=== PATIENT | female | born 1940 | race Caucasian/White ===

== ENCOUNTER 2021-07-30 09:32 | Inpatient (IN) ==
[~2021-07-30 09:32] MED LIST: DEXAMETHASONE 10 MG/ML VIAL ONE; EPINEPHrine 1 MG/10 ML (1:10,000) SYRINGE IV ONE; GLYCOPYRROLATE 0.2 MG/ML VIAL IV ONE; KETAMINE 50 MG/ML Syringe (ANEST) IV ONE; LIDOCAINE HCL/PF 100 MG/5 ML SYRINGE IV ONE; ONDANSETRON 4 MG/2 ML VIAL ONE; PHENYLephrine 1 MG/10 ML SYRINGE (ANEST) ONE; PROPOFOL 200 MG/20 ML VIAL IV ONE; TRANEXAMIC ACID 1,000 MG/10 ML VIAL ONE; fentaNYL 250 MCG/5 ML VIAL IV ONE
[2021-07-30] MEDS ORDERED: morphine 4 MG/ML VIAL IV ONE ×2 (09:36→10:54)
--- NOTE | 2021-07-30 09:42 | Emergency Department Note ---
Lower Extremity Injury HPI General Chief Complaint: Extremity Injury, Lower Stated Complaint: Right Hip Pain, Deformity Time Seen by Provider: 07/30/21 09:36 Mode of arrival: ambulatory History of Present Illness HPI Narrative: Patient is an 81-year-old lady who arrives the emergency department by ambulance accompanied by her daughter complaining of a fall. History is provided by the patient and paramedics and is somewhat limited due to the patient's dementia. The patient fell at her assisted living facility earlier today. Staff found her on the ground and called 911. Paramedics arrived and found the patient have an obvious hip deformity. Patient has severe pain in her right hip whenever she moves her leg. She denies any other apparent injuries. She is uncertain if she hit her head but does not think she lost consciousness. She cannot remember why she fell. Related Data Home Medications Medication Instructions Recorded Confirmed acetaminophen 325 mg tablet 325 mg PO Q4HP PRN 11/04/15 07/30/21 (Tylenol) alendronate 70 mg tablet (Fosamax) 70 mg PO WEEKLY 11/04/15 cholecalciferol (vitamin D3) 25 1,000 unit PO DAILY 11/04/15 07/30/21 mcg (1,000 unit) capsule (Vitamin D3) diphenhydramine HCl 25 mg capsule 25 mg PO Q4HP PRN 11/04/15 07/30/21 duloxetine 30 mg capsule,delayed 30 mg PO DAILY 11/04/15 07/30/21 release (Cymbalta) hydrocodone 10 mg-acetaminophen 1 - 2 tab PO Q4H PRN 11/04/15 07/30/21 325 mg tablet insulin aspart U-100 100 unit/mL 1 unit SQ HS 11/04/15 07/30/21 (3 mL) subcutaneous pen (Novolog Flexpen U-100 Insulin aspart) insulin glargine 100 unit/mL (3 11 unit SQ BID 11/04/15 07/30/21 mL) subcutaneous pen (Lantus Solostar U-100 Insulin) magnesium oxide 400 mg (241.3 mg 400 mg PO TID 11/04/15 07/30/21 magnesium) tablet (MagOx) metformin 500 mg tablet 500 mg PO DAILY 11/04/15 07/30/21 (Glucophage) omeprazole 20 mg capsule,delayed 20 mg PO ACB 11/04/15 07/30/21 release polyethylene glycol 3350 17 gram 17 gm PO DAILY 11/04/15 07/30/21 oral powder packet (Miralax) potassium chloride 20 mEq 20 meq PO DAILY 11/04/15 07/30/21 tablet,extended release(part/cryst) (Klor-Con M) benzonatate 100 mg capsule 100 mg PO TID PRN 07/30/21 07/30/21 bisacodyl 10 mg rectal suppository 10 mg MA HS 07/30/21 07/30/21 (Dulcolax (bisacodyl)) citalopram 10 mg tablet 10 mg PO QDAY 07/30/21 07/30/21 insulin aspart U-100 100 unit/mL 2 unit SUBCUT AC 07/30/21 07/30/21 (3 mL) subcutaneous pen (Novolog Flexpen U-100 Insulin aspart) methenamine hippurate 1 gram tablet 1 g PO BID 07/30/21 07/30/21 tamsulosin 0.4 mg capsule 0.4 mg PO HS 07/30/21 07/30/21 trazodone 150 mg tablet 150 mg PO HS 07/30/21 07/30/21 Allergies Allergy/AdvReac Type Severity Reaction Status Date / Time NO KNOWN ALLERGIES Allergy Unknown NONE Uncoded 01/01/15 04:40 Review of Systems ROS ROS Narrative: Narrative: Limitations: ROS unobtainable due to patients medical condition FOR[facility]LY [facility], [facility] Narrative Patient History Narrative: Patient lives in an assisted living facility. Medical/Surgical/Family History All Active Problems (Updated 07/30/21 @ 12:35 by Rodriguez Franco DO) Closed femur fracture (Acute) Dementia (Acute) Diabetes mellitus type 1 (Acute) Medical History (Updated 07/30/21 @ 12:35 by Rodriguez Franco DO) Constipation Fecal impaction in rectum Social History Smoking Status: Never smoker Alcohol Intake Frequency: does not drink Exam Narrative Narrative: I reviewed the vital signs. Gen -patient is awake and alert and in no acute distress. The patient is well groomed. HEENT -head is atraumatic. There is no conjunctival pallor or scleral icterus. Mucous membranes are moist. There is no midline cervical spine tenderness to palpation. CV -S1-S2 regular rate and rhythm. Peripheral pulses are palpable. There is no JVD. Resp -breathing is nonlabored. Lungs are clear to auscultation bilaterally. There is no cyanosis. GI - Abdomen is soft and nontender to palpation. There is no guarding or rebound tenderness. Derm -skin is warm and dry. There is no visible rash. MSK -the right leg is shortened and externally rotated at the hip. There is exquisite tenderness to palpation of the right greater trochanter. Patient has limited range of motion of the hip. Patient's right knee and ankle are nontender to palpation. Posterior tibial pulse is palpable. Sensation and motor strength are intact in the toes of the right foot. Pelvis is stable. Psych -patient has appropriate affect. The patient does not appear internally stimulated. Neuro -patient answers questions appropriately with fluent speech. Patient moves all present extremities equally. Course Vital Signs Vital signs: Vital Signs Temperature 98.0 F 07/30/21 09:34 Pulse Rate 94 H 07/30/21 09:34 Respiratory Rate 20 07/30/21 09:34 Blood Pressure 115/93 07/30/21 09:34 Pulse Oximetry (%) 96 07/30/21 09:34 Temperature 98.0 F 07/30/21 09:34 Pulse Rate 97 H 07/30/21 11:45 Respiratory Rate 14 07/30/21 12:15 Blood Pressure 127/71 07/30/21 12:15 Pulse Oximetry (%) 93 07/30/21 11:45 [facility] MDM Narrative Medical decision making narrative: Patient presents with right hip pain following a fall. X-rays reveal a subtrochanteric hip fracture. I discussed the test results with the patient and her daughter and they are agreeable with the plan for admission and operative repair. The head and neck CTs were reported to the ED charge nurse as being negative by the radiologist. Patient is somewhat hyperglycemic but labs do not reveal any sign of diabetic ketoacidosis. We will initiate treatment with IV fluids and insulin. I discussed the patient's history examination and radiographic findings with Dr. Gusman. He will evaluate the patient's appropriateness for surgery and likely operate this afternoon or tomorrow. He requests admission to the hospitalist service. I discussed the patient's history examination and diagnostic findings with Dr. Christian, who agrees with the plan of care and accepts admission. Lab Data Lab results reviewed: Yes I reviewed the patient's lab results. Result diagrams: 07/30/21 09:55 Labs: Lab Results 07/30/21 07/30/21 07/30/21 Range/Units 09:55 09:55 11:20 WBC 7.9 (4.5-11.0) K/mcL RBC 3.97 (3.59-5.38) M/mcL Hgb 12.5 (11.2-15.7) g/dL Hct 38.7 (34.1-44.9) % POC Hct 39 (36-48) % MCV 97.5 (80.0-100.0) fL MCH 31.5 (26.0-34.0) pg MCHC 32.3 (31.0-36.0) g/dL RDW 12.4 (11.5-14.5) % Plt Count 283 (140-440) K/mcL MPV 9.7 (7.4-10.4) fL Neut % (Auto) 84.7 H (38.0-78.0) % Lymph % (Auto) 9.0 L (15.5-49.0) % [place] % (Auto) 5.8 (1.0-12.0) % Eos % (Auto) 0.1 (0.0-7.0) % Baso % (Auto) 0.4 (0.0-2.0) % Lymph # (Auto) 0.71 L (1.50-4.80) K/mcL [place] # (Auto) 0.46 (0.10-0.90) K/mcL Eos # (Auto) 0.01 (0.00-0.70) K/mcL Baso # (Auto) 0.03 (0.00-0.30) K/mcL Absolute Neutrophils 6.70 (1.80-8.00) K/mcL POC Sodium 138 (133-145) mEq/L POC Potassium 4.4 (3.3-5.1) mEql/L POC Chloride 102 (96-108) mEq/L POC Total CO2 26 (22-30) mmol/L POC BUN 36 H (6-20) mg/dL POC Creatinine 0.7 (0.6-1.2) mg/dL POC Glucose 550 H* (70-105) mg/dL POC WB Ioniz Calcium 1.20 (1.16-1.32) mmEq/L Urine Color Yellow Urine Appearance Hazy A (Clear) Urine pH 6.0 (5.0-9.0) Ur Specific [place] 1.028 (1.000-1.035) Urine Protein Negative (Negative) mg/dL Urine Glucose (UA) >=500 A (Negative) mg/dL Urine Ketones 5 A (Negative) mg/dL Urine Occult Blood Negative (Negative) mg/dL Urine Nitrate Negative (Negative) Urine Bilirubin Negative (Negative) mg/dL Urine Urobilinogen Negative mg/dL Ur Leukocyte Esterase Negative (Negative) /uL Urine RBC 0 (0-3) /hpf Urine WBC 3 (0-4) /hpf Ur Squamous Epith Cells 1 (0-4) /hpf Urine Bacteria Few A (0) /hpf Ur Culture Indicated? Yes ED POC Tests ED POC Tests: ROBERT - SARS Antigen Negative Radiology Data Radiology results narrative: I interpreted the patient's plain films prior to the availability of the formal radiology read. 3 views of the left hip and pelvis were obtained at 10:16 AM. There is a displaced slightly comminuted subtrochanteric fracture of the right hip. There are no visible pelvic fractures. Portable chest x-ray was obtained at 10:22 AM. There are no acute infiltrates. Discharge Plan Patient/Caregiver Discharge Instructions Pt seen by BODY PRESSER/PA only: No Clinical Impression: Closed femur fracture Patient Disposition: Xfer As Inpt ([facility]) Condition: Fair Follow up with: Avila Renner DO [Primary Care Provider] - Prescriptions: No Action metformin [Glucophage] 500 MG tablet 500 mg PO DAILY 0RF acetaminophen [Tylenol] 325 MG tablet 325 mg PO Q4HP PRN (Reason: Pain) 0RF polyethylene glycol 3350 [Miralax] 17 GM powder in packet 17 gm PO DAILY 0RF alendronate [Fosamax] 70 MG tablet 70 mg PO WEEKLY 0RF hydrocodone-acetaminophen 1 TAB tablet 1 - 2 tab PO Q4H PRN (Reason: Pain) 0RF potassium chloride [Klor-Con M20] 20 MEQ tablet,ER particles/crystals 20 meq PO DAILY 0RF magnesium oxide [MagOx] 400 MG tablet 400 mg PO TID 0RF diphenhydramine HCl 25 MG capsule 25 mg PO Q4HP PRN (Reason: Allergic Symptoms) 0RF omeprazole 20 MG capsule,delayed release(DR/EC) 20 mg PO ACB 0RF cholecalciferol (vitamin D3) [Vitamin D3] 1,000 UNIT capsule 1,000 unit PO DAILY 0RF insulin aspart U-100 [Novolog Flexpen U-100 Insulin] 100 UNIT/ML insulin pen 1 unit SQ HS 0RF duloxetine [Cymbalta] 30 MG capsule,delayed release(DR/EC) 30 mg PO DAILY 0RF Lantus Solostar U-100 Insulin 100 UNIT/ML insulin pen 11 unit SQ BID 0RF citalopram 10 mg Tablet 10 mg PO QDAY 0RF methenamine hippurate 1 gram tablet 1 g PO BID 0RF tamsulosin 0.4 mg capsule 0.4 mg PO HS 0RF benzonatate 100 mg Capsule 100 mg PO TID PRN (Reason: Cough) 0RF bisacodyl [Dulcolax (bisacodyl)] 10 mg suppository 10 mg MA HS 0RF Label Comments: prn trazodone 150 mg tablet 150 mg PO HS 0RF insulin aspart U-100 [Novolog Flexpen U-100 Insulin] 100 unit/mL (3 mL) insulin pen 2 unit SUBCUT AC 0RF
[2021-07-30 10:13] LABS: POC Blood Urea Nitrogen 36 mg/dL (6-20); POC CO2 26 mmol/L (22-30); POC Chloride 102 mEq/L (96-108); POC Creatinine 0.7 mg/dL (0.6-1.2); POC Glucose, Random 550 mg/dL (70-105); POC Hematocrit 39 % (36-48); POC Potassium 4.4 mEql/L (3.3-5.1); POC Sodium 138 mEq/L (133-145)
[2021-07-30 10:38] LABS: Basophils # (Auto) 0.03 K/mcL (0.00-0.30); Basophils % (Auto) 0.4 % (0.0-2.0); Eosinophils # (Auto) 0.01 K/mcL (0.00-0.70); Eosinophils % (Auto) 0.1 % (0.0-7.0); Hematocrit 38.7 % (34.1-44.9); Hemoglobin 12.5 g/dL (11.2-15.7); Lymphocytes # (Auto) 0.71 K/mcL (1.50-4.80); Mean Cell Volume 97.5 fL (80.0-100.0); Mean Corpuscular HGB Conc 32.3 g/dL (31.0-36.0); Mean Platelet Volume 9.7 fL (7.4-10.4); Monocytes # (Auto) 0.46 K/mcL (0.10-0.90); Monocytes % (Auto) 5.8 % (1.0-12.0); Neutrophils % (Auto) 84.7 % (38.0-78.0); Platelet Count 283 K/mcL (140-440); RBC 3.97 M/mcL (3.59-5.38); Red Cell Distribution Width 12.4 % (11.5-14.5); WBC 7.9 K/mcL (4.5-11.0)
[2021-07-30] MEDS ORDERED: INSULIN REGULAR, HUMAN 1 UNIT/0.01 ML UNIT IV ONE (11:04)
[2021-07-30] MEDS ORDERED: LACTATED RINGERS 1,000 ML IV ONE (11:04)
[2021-07-30 12:13] LABS: Appearance,Urine HAZY (Clear); Bacteria,Urine FEW /hpf (0); Bilirubin,Urine Negative (Negative); Color,Urine YELLOW; Culture Indicated,Urine Yes; Glucose,Urine (UA) >=500 mg/dL (Negative); Ketones,Urine 5 mg/dL (Negative); Leukocyte Esterase,Urine Negative /uL (Negative); Nitrate,Urine Negative (Negative); Protein,Urine Negative (Negative); Specific Gravity,Urine 1.028 (1.000-1.035); Urine Blood Negative (Negative); Urine RBC 0 /hpf (0-3); Urine Squamous Epithelial Cell 1 /hpf (0-4); Urine WBC 3 /hpf (0-4); Urobilinogen,Urine Negative
[2021-07-30] MEDS ORDERED: INSULIN REGULAR, HUMAN 1 UNIT/0.01 ML UNIT SQ ONE (12:22)
--- NOTE | 2021-07-30 12:37 | XRay Report ---
CLINICAL INFORMATION: Trauma COMPARISON: 12/08/2017 TECHNIQUE: Portable FINDINGS: The heart size, mediastinum and pulmonary vessels are unremarkable. The lungs are clear. There are no effusions. Malunified old fracture of the proximal left humerus is incompletely imaged. IMPRESSION: No cardiopulmonary disease or acute posttraumatic change evident Interpreted and Authenticated by: Jesus Jennings 07/30/21
--- NOTE | 2021-07-30 12:39 | Internal Med History&Physical ---
HPI History of Present Illness Patient information: Note initiated : 07/30/21 at 12:39 pm Service Date, if different from initiated Date: [] Patient: Janay Kraft a 81 y/o F admitted on for Right Hip Pain, Deformity. Chief Complaint: [] Chief complaint: Fall, right hip pain and fracture History of present illness: Ms. Kraft is a 81 year old F with a history of advanced dementia, type 2 diabetes, CKD stage III, depression who presents the ED after ground-level fall at her assisted living facility. Patient states that she tripped and fell to the ground onto her right hip. There is obvious deformity upon arrival in the emergency department. Imaging shows a subtrochanteric fracture. Patient does not recall full details of the episode, but denies any feelings of lightheadedness, striking her head, or loss of consciousness. Her daughter notes that she has been unsteady on her feet for the last few weeks, she had a fall the day previously as well as one a few weeks ago. Dr. Lind for orthopedics has been consulted by the ED, he plans operative repair in the morning. Further evaluation in the ED revealed hyperglycemia with a glucose over 500 at presentation. She received fluids and 5 units of IV insulin in the ED. Patient denies any chest pain, tightness or squeezing sensations at rest or with exertion Denies any dyspnea, cough or sputum production. Denies any dyspnea while lying flat. No lower extremity edema. Neither the patient nor her daughter know of any history of coronary disease or congestive heart failure or pulmonary disease. Her glucoses can run into the 500 range at times. A pparently she does have difficult to control diabetes. She is on glargine, mealtime aspart as well as Metformin. She denies any abdominal pain, no nausea or vomiting. She does have chronic constipation but had a bowel movement yesterday and today. No dysuria. Other than right hip pain with movement, no other joint pains or swelling. No bruising or bleeding. Review of Systems All systems: reviewed and no additional remarkable complaints except as stated PFSH PFSH All Active Problems (Updated 07/30/21 @ 16:30 by Consuelo Castaneda MD) GERD (gastroesophageal reflux disease) (Acute) Osteoporosis (Acute) Dementia (Acute) Chronic kidney disease, stage 3 (Acute) Type 2 diabetes mellitus not at goal (Acute) Closed femur fracture (Acute) Medical History (Updated 07/30/21 @ 16:30 by Consuelo Castaneda MD) Chronic kidney disease, stage 3 Constipation Dementia Diabetic neuropathy Fecal impaction in rectum GERD (gastroesophageal reflux disease) Osteoporosis Type 2 diabetes mellitus not at goal Social History alcohol intake frequency: does not drink MEDS/ALLERGIES Home Medications and Allergies Home Medications Medication Instructions Recorded Confirmed Type acetaminophen 325 mg tablet 325 mg PO Q4HP PRN 11/04/15 07/30/21 History (Tylenol) alendronate 70 mg tablet (Fosamax) 70 mg PO WEEKLY 11/04/15 History cholecalciferol (vitamin D3) 25 1,000 unit PO DAILY 11/04/15 07/30/21 History mcg (1,000 unit) capsule (Vitamin D3) diphenhydramine HCl 25 mg capsule 25 mg PO Q4HP PRN 11/04/15 07/30/21 History duloxetine 30 mg capsule,delayed 30 mg PO DAILY 11/04/15 07/30/21 History release (Cymbalta) hydrocodone 10 mg-acetaminophen 1 - 2 tab PO Q4H PRN 11/04/15 07/30/21 History 325 mg tablet insulin aspart U-100 100 unit/mL 1 unit SQ HS 11/04/15 07/30/21 History (3 mL) subcutaneous pen (Novolog Flexpen U-100 Insulin aspart) insulin glargine 100 unit/mL (3 11 unit SQ BID 11/04/15 07/30/21 History mL) subcutaneous pen (Lantus Solostar U-100 Insulin) magnesium oxide 400 mg (241.3 mg 400 mg PO TID 11/04/15 07/30/21 History magnesium) tablet (MagOx) metformin 500 mg tablet 500 mg PO DAILY 11/04/15 07/30/21 History (Glucophage) omeprazole 20 mg capsule,delayed 20 mg PO ACB 11/04/15 07/30/21 History release polyethylene glycol 3350 17 gram 17 gm PO DAILY 11/04/15 07/30/21 History oral powder packet (Miralax) potassium chloride 20 mEq 20 meq PO DAILY 11/04/15 07/30/21 History tablet,extended release(part/cryst) (Klor-Con M) benzonatate 100 mg capsule 100 mg PO TID PRN 07/30/21 07/30/21 History bisacodyl 10 mg rectal suppository 10 mg CO HS 07/30/21 07/30/21 History (Dulcolax (bisacodyl)) citalopram 10 mg tablet 10 mg PO QDAY 07/30/21 07/30/21 History insulin aspart U-100 100 unit/mL 2 unit SUBCUT AC 07/30/21 07/30/21 History (3 mL) subcutaneous pen (Novolog Flexpen U-100 Insulin aspart) methenamine hippurate 1 gram tablet 1 g PO BID 07/30/21 07/30/21 History tamsulosin 0.4 mg capsule 0.4 mg PO HS 07/30/21 07/30/21 History trazodone 150 mg tablet 150 mg PO HS 07/30/21 07/30/21 History Allergies Allergy/AdvReac Type Severity Reaction Status Date / Time NO KNOWN ALLERGIES Allergy Unknown NONE Uncoded 01/01/15 04:40 EXAM Constitutional Vitals: Temp Pulse Resp BP Pulse Ox 98.0 F 97 H 14 127/71 93 07/30/21 09:34 07/30/21 11:45 07/30/21 12:15 07/30/21 12:15 07/30/21 11:45 GENERAL: Alert, oriented, in no acute distress. Cooperative, appears stated age. HEENT: Atraumatic. PERRL at 2 mm, conjunctiva clear, no scleral icterus. Hearing grossly intact. Oropharynx with moist mucous membranes, no lip or gum lesions, no pharyngeal erythema or exudate. Tongue midline, palate rises symmetrically. NECK: Supple without meningismus, no thyromegaly RESPIRATORY: Breath sounds clear bilaterally without wheezes or rhonchi. Respiratory effort is unlabored. CARDIOVASCULAR: Regular rate and rhythm, no murmur gallop or rub. No peripheral edema. Carotid pulses 2+ without bruit. Pedal pulses 2+ at the dorsalis pedis. GI: Abdomen soft, nontender, no guarding or rebound. Bowel sounds are present. MUSCULOSKELETAL: Right lower extremity is externally rotated at the hip. There is tenderness over palpation of the hip joint. Trace edema, 2+ pulses, ankle fl exion and extension intact. SKIN: Intact, warm, dry. No lesions. Skin turgor decreased. NEUROLOGIC: Cranial nerves II through XII grossly intact. Muscle mass normal for age. Strength 5/5 in the bilateral upper and left lower extremities. Strength testing in the right lower extremity limited by hip pain. Sensation intact to light touch bilaterally. PSYCHIATRIC: Alert, oriented x3, mood and affect congruent to situation, decreased insight into current medical condition. DATA Data Completed and Pending Labs: Labs from last 24 hours 07/30/21 07/30/21 07/30/21 11:20 09:55 09:55 WBC 7.9 RBC 3.97 Hgb 12.5 Hct 38.7 POC Hct 39 MCV 97.5 MCH 31.5 MCHC 32.3 RDW 12.4 Plt Count 283 MPV 9.7 Neut % (Auto) 84.7 H Lymph % (Auto) 9.0 L [place] % (Auto) 5.8 Eos % (Auto) 0.1 Baso % (Auto) 0.4 Lymph # (Auto) 0.71 L [place] # (Auto) 0.46 Eos # (Auto) 0.01 Baso # (Auto) 0.03 Absolute Neutrophils 6.70 POC Sodium 138 POC Potassium 4.4 POC Chloride 102 POC Total CO2 26 POC BUN 36 H POC Creatinine 0.7 POC Glucose 550 H* POC WB Ioniz Calcium 1.20 Urine Color Yellow Urine Appearance Hazy A Urine pH 6.0 Ur Specific [place] 1.028 Urine Protein Negative Urine Glucose (UA) >=500 A Urine Ketones 5 A Urine Occult Blood Negative Urine Nitrate Negative Urine Bilirubin Negative Urine Urobilinogen Negative Ur Leukocyte Esterase Negative Urine RBC 0 Urine WBC 3 Ur Squamous Epith Cells 1 Urine Bacteria Few A Ur Culture Indicated? Yes Imaging and Cardiology R hip x-ray: Status: image reviewed by me Additional comments: IMPRESSION: Mildly comminuted, displaced and angulated intertrochanteric fracture-right hip CT scan - head: Status: image reviewed by me Additional comments: IMPRESSION: Moderate atrophy and chronic ischemic changes in the deep cerebral white matter-expected for age. No acute findings Moderate right TMJ degeneration CT scan - C spine: Status: image reviewed by me Additional comments: IMPRESSION: 1. No fracture or other acute posttraumatic change. 2. Multilevel degeneration-as described 3. Moderate degeneration-both TMJs Chest x-ray: Status: image reviewed by me Additional comments: IMPRESSION: No cardiopulmonary disease or acute posttraumatic change evident EKG: Status: image reviewed by me Additional comments: Sinus rhythm with PACs, no acute changes A/P Assessment and plan (1) Closed femur fracture: Status: Acute Comment: Right intertrochanteric Qualifiers: Encounter type: initial encounter Femur location: subtrochanteric Fracture alignment: displaced Laterality: right Qualified Code(s): S72.21XA - Displaced subtrochanteric fracture of right femur, initial encounter for closed fracture (2) Type 2 diabetes mellitus not at goal: Status: Acute (3) Chronic kidney disease, stage 3: Status: Acute (4) Dementia: Status: Acute (5) Osteoporosis: Status: Acute Narrative A/P Narrative: 81-year-old female who presents after ground-level fall with right intertrochanteric hip fracture. Right intertrochanteric hip fracture -Due to ground-level fall -Pathologic fracture associated with osteoporosis -Orthopedics consulted (Dr. Gusman), tentatively plans to the OR tomorrow morning Type 2 diabetes with hyperglycemia -Daughter notes has had significantly elevated glucoses intermittently -Daughter believes her hemoglobin A1c is in the 9 range at last check -On 11 units twice daily of glargine, 2 units of mealtime aspart and Metformin -Received 5 units of IV insulin in ED, subsequently 5 units of regular CKD stage III -Creatinine 0.7 Dementia -Advanced with difficulty with recall, critical thinking and daily activities -At risk for delirium -At risk for progression of symptoms given acute injury/hip fracture Osteoporosis -On alendronate at baseline CODE STATUS: DNR Prophylaxis: SCDs Plan: * Inpatient admission * N.p.o. after midnight * Pain control * Diabetic diet * Sliding scale insulin * Decrease basal glargine to 6 units twice daily, as oral intake may be decreased * Send hemoglobin A1c * Follow renal function * Delirium precautions, frequent reorientation, maintain day/night * Continue PPI
--- NOTE | 2021-07-30 12:39 | XRay Report ---
CLINICAL INFORMATION: Trauma COMPARISON: None. FINDINGS: Sacroiliac and hip joints are normal in width and alignment without arthritic change. Mildly comminuted intratrochanteric fracture of the right hip with coxa vara angulation and 2 cm medial displacement of the distal femur appreciated. Moderate local soft tissue swelling noted. IMPRESSION: Mildly comminuted, displaced and angulated intertrochanteric fracture-right hip Interpreted and Authenticated by: Jesus Jennings 07/30/21
--- NOTE | 2021-07-30 12:50 | Cat Scan Report ---
CLINICAL INFORMATION: Trauma-fall COMPARISON: 05/30/2007 TECHNIQUE: 2.5 mm helical slices were obtained in the skull base to vertex. Following reconstruction, axial reformatted images were reviewed at bone and parenchymal windows. The exam was performed using radiation dose optimization techniques including, but not limited to, automated exposure control, adjustment of the mA and/or kV according to patient size and use of iterative reconstruction technique. FINDINGS: The ventricles, sulci, fissures, and cisterns are symmetrically enlarged compatible with moderate age-related atrophy. This has progressed considerably since remote CT 15 years ago. No extra-axial fluid collections are identified. Mild patchy chronic ischemic changes, in the deep cerebral white matter, are expected for age. There is no hemorrhage, mass effect, or edema. Bone windows show no fracture. Moderate degenerative change of the right TMJ IMPRESSION: Moderate atrophy and chronic ischemic changes in the deep cerebral white matter-expected for age. No acute findings Moderate right TMJ degeneration Interpreted and Authenticated by: Jesus Jennings 07/30/21
--- NOTE | 2021-07-30 12:55 | Cat Scan Report ---
CLINICAL INFORMATION: Trauma COMPARISON: None. TECHNIQUE: 0.625 mm helical slices were obtained from the skull base through the superior T2 end plate. Following reconstruction, 2.5 mm sagittal, coronal and axial reformations , with and without disc space angling, were processed. The exam was reviewed at bone and soft tissue windows. The exam was performed using radiation dose optimization techniques including, but not limited to, automated exposure control, adjustment of the mA and/or kV according to patient size and use of iterative reconstruction technique. FINDINGS: Sagittal reformatted images show 2 mm of C3 and 2 mm C4 anterior subluxation due to degenerative facet disease. The remaining cervical spine is anatomically aligned. 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 No fracture identified. Moderate peridens fibrosis with associated calcification mildly impinges the anterior C1 thecal sac. The cervical cord is normal in contour and caliber without hemorrhage or other abnormality. Moderate degenerate change seen in both TMJs. No soft tissue abnormality. At C2-3, mild broad disc protrusion mildly impinges on the thecal sac At C3-4, mild broad disc protrusion and spondylolisthesis results in minimal central canal, moderate right and mild left IV foraminal narrowing. There may be impingement of the exiting C4 nerve roots At C4-5, moderate broad disc protrusion with left-sided asymmetry and grade 1 posterolisthesis results in mild central canal and moderate left IV foraminal narrowing. There is impingement of the exiting left C5 nerve root At C5-6, moderate broad disc complex results in mild central canal and right IV foraminal narrowing At C6-7, the disc level is normal At C7-T1 mild broad disc protrusion results in mild central canal and mild bilateral IV foraminal narrowing. IMPRESSION: 1. No fracture or other acute posttraumatic change. 2. Multilevel degeneration-as described 3. Moderate degeneration-both TMJs Interpreted and Authenticated by: Jesus Jennings 07/30/21
[2021-07-30] MEDS ORDERED: DEXTROSE 50% 50 ML VIAL IV PRN (14:07)
[2021-07-30] MEDS ORDERED: ONDANSETRON 4 MG/2 ML VIAL IV PRN (14:07)
[2021-07-30] MEDS ORDERED: DEXTROSE 31 GM ORAL.SUSP PO PRN (14:07)
[2021-07-30] MEDS ORDERED: ACETAMINOPHEN 325 MG TABLET PO PRN (14:07)
[2021-07-30] MEDS: HYDROmorphone 0.5 MG/0.5 ML SYRINGE IV PRN (14:44)
[2021-07-30] MEDS: 0.9 % SODIUM CHLORIDE 1,000 ML IV SCH (14:49)
[2021-07-30] MEDS: 0.9 % SODIUM CHLORIDE 10 ML SYRINGE IV SCH ×2 (16:24→20:15)
[2021-07-30] MEDS: MAGNESIUM OXIDE 400 MG TABLET PO SCH ×2 (16:36→20:47)
[2021-07-30] MEDS: INSULIN LISPRO 1 UNIT/0.01 ML UNIT SQ SCH ×2 (16:36→20:14)
[2021-07-30] MEDS: HYDROcodone/APAP 5/325MG TABLET PO PRN ×2 (16:36→20:47)
[2021-07-30] MEDS: BISACODYL 10 MG SUPP.RECT PR SCH (20:14)
[2021-07-30] MEDS: SENNOSIDES 1 TABLET PO SCH (20:15)
[2021-07-30] MEDS: DOCUSATE SODIUM 100 MG CAPSULE PO SCH (20:16)
[2021-07-30] MEDS: INSULIN GLARGINE, HUMAN 1 UNIT/0.01 ML SQ SCH (20:27)
[2021-07-30] MEDS: traZODone HCL 150 MG TABLET PO SCH (20:47)
[2021-07-30] MEDS: TAMSULOSIN 0.4 MG CAPSULE PO SCH (20:47)
[2021-07-31] MEDS: 0.9 % SODIUM CHLORIDE 1,000 ML IV SCH (03:45)
[2021-07-31] MEDS: HYDROmorphone 0.5 MG/0.5 ML SYRINGE IV PRN (03:46)
[2021-07-31] MEDS: 0.9 % SODIUM CHLORIDE 10 ML SYRINGE IV SCH ×3 (04:00→20:27)
[2021-07-31 06:43] LABS: Basophils # (Auto) 0.04 K/mcL (0.00-0.30); Basophils % (Auto) 0.7 % (0.0-2.0); Eosinophils # (Auto) 0.02 K/mcL (0.00-0.70); Eosinophils % (Auto) 0.3 % (0.0-7.0); Hematocrit 32.7 % (34.1-44.9); Hemoglobin 10.2 g/dL (11.2-15.7); Lymphocytes # (Auto) 1.08 K/mcL (1.50-4.80); Lymphocytes % (Auto) 17.9 % (15.5-49.0); Mean Cell Volume 100.3 fL (80.0-100.0); Mean Corpuscular HGB Conc 31.2 g/dL (31.0-36.0); Monocytes # (Auto) 0.44 K/mcL (0.10-0.90); Monocytes % (Auto) 7.3 % (1.0-12.0); Neutrophils % (Auto) 73.8 % (38.0-78.0); Platelet Count 216 K/mcL (140-440); RBC 3.26 M/mcL (3.59-5.38); Red Cell Distribution Width 12.6 % (11.5-14.5)
[2021-07-31 07:04] LABS: Blood Urea Nitrogen 21 mg/dL (8-23); Calcium 7.7 mg/dL (8.6-10.4); Carbon Dioxide 24 mmol/L (22-30); Chloride 104 mmol/L (96-108); Glomerular Filtration Rate 84; Glucose 370 mg/dL (70-105)
[2021-07-31] MEDS ORDERED: ceFAZolin 1 GM in DEXTROSE 5% IN WATER 50 ML IV SCH (08:45)
[2021-07-31] MEDS ORDERED: BENZOCAINE/MENTHOL 1 LOZENGE PO PRN ×2 (08:50→09:29)
[2021-07-31] MEDS ORDERED: ONDANSETRON 4 MG/2 ML VIAL IV PRN (08:56)
[2021-07-31] MEDS ORDERED: NALOXONE HCL 0.4 MG/ML VIAL IV PRN ×2 (08:56→09:29)
[2021-07-31] MEDS ORDERED: ceFAZolin 1 GM VIAL IV SCH (09:00)
--- NOTE | 2021-07-31 09:02 | Discharge Plan ---
Discharge Plan Patient/Caregiver Discharge Instructions Activity: ambulate only with your walker Diet: Regular Diet Activity Restrictions/Additional Instructions: 50% weight bearing Prescriptions: New hydrocodone-acetaminophen 5-325 mg tablet 1 tab PO Q4H PRN (Reason: pain) Qty: 60 0RF aspirin [Enteric Coated Aspirin] 81 mg tablet,delayed release (DR/EC) 81 mg PO BID Qty: 60 0RF No Action metformin [Glucophage] 500 MG tablet 500 mg PO DAILY 0RF acetaminophen [Tylenol] 325 MG tablet 325 mg PO Q4HP PRN (Reason: Pain) 0RF polyethylene glycol 3350 [Miralax] 17 GM powder in packet 17 gm PO DAILY 0RF alendronate [Fosamax] 70 MG tablet 70 mg PO WEEKLY 0RF Rx Instructions: Takes on Sun hydrocodone-acetaminophen 1 TAB tablet 1 - 2 tab PO Q4H PRN (Reason: Pain) 0RF potassium chloride [Klor-Con M20] 20 MEQ tablet,ER particles/crystals 20 meq PO DAILY 0RF magnesium oxide [MagOx] 400 MG tablet 400 mg PO TID 0RF diphenhydramine HCl 25 MG capsule 25 mg PO Q4HP PRN (Reason: Allergic Symptoms) 0RF omeprazole 20 MG capsule,delayed release(DR/EC) 20 mg PO ACB 0RF cholecalciferol (vitamin D3) [Vitamin D3] 1,000 UNIT capsule 1,000 unit PO DAILY 0RF insulin aspart U-100 [Novolog Flexpen U-100 Insulin] 100 UNIT/ML insulin pen 1 unit SQ HS 0RF duloxetine [Cymbalta] 30 MG capsule,delayed release(DR/EC) 30 mg PO DAILY 0RF Lantus Solostar U-100 Insulin 100 UNIT/ML insulin pen 11 unit SQ BID 0RF citalopram 10 mg Tablet 10 mg PO QDAY 0RF methenamine hippurate 1 gram tablet 1 g PO BID 0RF tamsulosin 0.4 mg capsule 0.4 mg PO HS 0RF benzonatate 100 mg Capsule 100 mg PO TID PRN (Reason: Cough) 0RF bisacodyl [Dulcolax (bisacodyl)] 10 mg suppository 10 mg LA HS 0RF Label Comments: prn trazodone 150 mg tablet 150 mg PO HS 0RF insulin aspart U-100 [Novolog Flexpen U-100 Insulin] 100 unit/mL (3 mL) insulin pen 2 unit SUBCUT AC 0RF Follow Up Plan Follow up with: Vasu Gusman MD [Physician] - Avila Renner DO [Primary Care Provider] - Patient Disposition: Home, Self-Care Prognosis: Fair Discharge Orders: Discharge Order (Routine); Ordered 08/03/21 Ordered By: Vasu Gusman
--- NOTE | 2021-07-31 09:06 | Internal Med Progress Note ---
SUBJECTIVE Subjective Patient information: Note initiated : 07/31/21 at 9:06 am Service Date, if different from initiated Date: [] Patient: Janay Kraft a 81 y/o F admitted on 07/30/21 for Right Hip Pain, Deformity. Chief Complaint: f/u hip fracture Interval history: Ms. Kraft is a 81 year old F with a history of advanced dementia, type 2 diabete s, CKD stage III, depression who presents the ED after ground-level fall at her assisted living facility. Patient states that she tripped and fell to the ground onto her right hip. There is obvious deformity upon arrival in the emergency department. Imaging shows a subtrochanteric fracture. Patient does not recall full details of the episode, but denies any feelings of lightheadedness, striking her head, or loss of consciousness. Her daughter notes that she has been unsteady on her feet for the last few weeks, she had a fall the day previously as well as one a few weeks ago. Dr. Lind for orthopedics has been consulted by the ED, he plans operative repair in the morning. Further evaluation in the ED revealed hyperglycemia with a glucose over 500 at presentation. She received fluids and 5 units of IV insulin in the ED. 1/: Glucose down to 89 last night, 6 units of glargine held at bedtime, in the 300s this morning. Seen with daughter at bedside, discussed with orthopedics. Plan for ORIF today. Constitutional Vitals: Vital Signs Temp Pulse Resp BP Pulse Ox 98.5 F 100 H 20 117/70 92 07/31/21 07:01 07/31/21 04:00 07/31/21 07:01 07/31/21 07:01 07/31/21 07:01 Period Temp Pulse Resp BP Sys/Mckenna Pulse Ox Last 24 Hr 98.0 F-99.0 F 89-101 13-20 114-162/59-93 90-98 Intake and Output 07/30/21 07/31/21 07/31/21 21:59 05:59 13:59 Intake Total 1270 Output Total 525 950 Balance -525 320 Weight 91 lb 5 oz Intake & Output: Intake & Output 07/30/21 07/31/21 07/31/21 21:59 05:59 13:59 Intake Total 1270 Output Total 525 950 Balance -525 320 Weight 91 lb 5 oz Intake: IV 970 Sodium Chloride 0.9% 1,000 ml @ 970 75 mls/hr IV .[id number] [facility] Rx#: [id number] Oral 300 Output: Urine Catheter Amount 525 950 Other: Meal Lunch Dinner Percent of Meal Consumed 50% 100% Feeding Ability Assist with Tray Set Up Urine Appearance Clear Clear Uretheral (Mays) Clear Urine Color Bright Yellow Pale Uretheral (Mays) Straw Urine Odor Normal GENERAL: Laying in bed no acute distress RESPIRATORY: Clear bilaterally CARDIOVASCULAR: Regular ABDOMEN: Soft, nontender EXTREMITIES: Right lower extremity externally rotated, 2+ pulses NEURO: Alert, oriented to self OBJ DATA Labs CBC & Chem 7: 07/31/21 05:13 07/31/21 05:13 Labs: Abnormal Lab Results 07/31/21 07/31/21 07/30/21 05:13 05:13 11:20 RBC 3.26 L Hgb 10.2 L Hct 32.7 L MCV 100.3 H Neut % (Auto) Lymph % (Auto) Lymph # (Auto) 1.08 L POC BUN Glucose 370 H POC Glucose Calcium 7.7 L Urine Appearance Hazy A Urine Glucose (UA) >=500 A Urine Ketones 5 A Urine Bacteria Few A 07/30/21 07/30/21 09:55 09:55 RBC Hgb Hct MCV Neut % (Auto) 84.7 H Lymph % (Auto) 9.0 L Lymph # (Auto) 0.71 L POC BUN 36 H Glucose POC Glucose 550 H* Calcium Urine Appearance Urine Glucose (UA) Urine Ketones Urine Bacteria Meds: Medications Acetaminophen (Acetaminophen 325 Mg Tablet) 650 mg PO Q6HP PRN; Protocol PRN Reason: Per Pain Protocol/Fever > 101 Hydrocodone Bitart/Acetaminophen (Hydrocodone/Apap 5/325mg Tablet) 1 tab PO Q4HP PRN; Protocol PRN Reason: Per Pain Protocol Last Admin: 07/30/21 20:47 Dose: 1 tab Documented by: Bisacodyl (Bisacodyl 10 Mg Supp.Rect) [address] [facility] Last Admin: 07/30/21 20:14 Dose: Not Given Documented by: Cefazolin Sodium (Cefazolin 1 Gm Vial) 1 gm IV PREOP VASQUEZ Stop: 07/31/21 15:00 Dextrose (Dextrose 50% 50 Ml Vial) 0 ml IV UD PRN PRN Reason: Hypoglycemia Diagnostic Test (Pha) (Accu-Chek 1 Each Strip) 1 each FS [facility] Last Admin: 07/30/21 20:49 Dose: 1 each Documented by: Docusate Sodium (Docusate Sodium 100 Mg Capsule) [address] [facility] Last Admin: 07/30/21 20:16 Dose: Not Given Documented by: Duloxetine HCl (Duloxetine 30 Mg Capsule) [address] [facility] Enoxaparin Sodium (Enoxaparin 30 Mg/0.3 Ml Syringe) [address] [facility] Glucose (Dextrose 31 Gm Oral.Susp) 15 gm PO PRN PRN PRN Reason: Hypoglycemia Hydromorphone HCl (Hydromorphone 0.5 Mg/0.5 Ml Syringe) 0.5 mg IV Q2HP PRN; Protocol PRN Reason: Per Pain Protocol Last Admin: 07/31/21 03:46 Dose: 0.5 mg Documented by: Sodium Chloride (Sodium Chloride 0.9%) 1,000 mls @ 75 mls/hr IV .[id number] [facility] Last Admin: 07/31/21 03:45 Dose: 75 mls/hr Documented by: Lactated Ringer's (Lactated Ringers) 1,000 mls @ 75 mls/hr IV .[id number] [facility] Insulin Glargine (Insulin Glargine, Human 1 Unit/0.01 Ml) [address] [facility] Last Admin: 07/30/21 20:27 Dose: Not Given Documented by: Insulin Human Lispro (Insulin Lispro 1 Unit/0.01 Ml Unit) 0 unit SQ [facility]; Protocol Last Admin: 07/30/21 20:14 Dose: Not Given Documented by: Magnesium Oxide (Magnesium Oxide 400 Mg Tablet) [address] [facility] Last Admin: 07/30/21 20:47 Dose: 400 mg Documented by: Naloxone HCl (Naloxone Hcl 0.4 Mg/Ml Vial) 0.1 mg IV Q2MIN PRN PRN Reason: Opiate Reversal Omeprazole (Omeprazole 20 Mg Capsule) [address] [facility] Ondansetron HCl (Ondansetron 4 Mg/2 Ml Vial) 4 mg IV Q6HP PRN PRN Reason: Nausea And Vomiting Ondansetron HCl (Ondansetron 4 Mg/2 Ml Vial) 4 mg IV Q4HP PRN; Protocol PRN Reason: Nausea And Vomiting Polyethylene Glycol (Polyethylene Glycol 3350 17 Gm Packet) [address] [facility] Potassium Chloride (Potassium Chloride 20 Meq Tablet) [address] [facility] Senna (Sennosides 1 Tablet) 2 tab PO [facility] Last Admin: 07/30/21 20:15 Dose: Not Given Documented by: Sodium Chloride (0.9 % Sodium Chloride 10 Ml Syringe) [address] [facility] Last Admin: 07/31/21 04:00 Dose: Not Given Documented by: Tamsulosin HCl (Tamsulosin 0.4 Mg Capsule) 0.4 mg PO [facility] Last Admin: 07/30/21 20:47 Dose: 0.4 mg Documented by: Throat Lozenges (Benzocaine/Menthol 1 Lozenge) 1 lozenge PO PRN PRN PRN Reason: Sore Throat Trazodone HCl (Trazodone Hcl 150 Mg Tablet) 150 mg PO [facility] Last Admin: 07/30/21 20:47 Dose: 150 mg Documented by: A/P Assessment and plan (1) Closed femur fracture: Status: Acute Comment: Right intertrochanteric Qualifiers: Encounter type: initial encounter Femur location: subtrochanteric Fracture alignment: displaced Laterality: right Qualified Code(s): S72.21XA - Displaced subtrochanteric fracture of right femur, initial encounter for closed fracture (2) Type 2 diabetes mellitus not at goal: Status: Acute (3) Chronic kidney disease, stage 3: Status: Acute (4) Dementia: Status: Acute (5) Osteoporosis: Status: Acute Narrative A/P Narrative: 81-year-old female who presents after ground-level fall with right inter trochanteric hip fracture. Right intertrochanteric hip fracture -Due to ground-level fall -Pathologic fracture associated with osteoporosis -Orthopedics consulted (Dr. Gusman), to OR for ORIF 1/2 Type 2 diabetes with hyperglycemia -Daughter notes has had significantly elevated glucoses intermittently -Daughter believes her hemoglobin A1c is in the 9 range at last check -On 11 units twice daily of glargine, 2 units of mealtime aspart and Metformin -Received 5 units of IV insulin in ED, subsequently 5 units of regular -Labile glucoses in the hospital -Hemoglobin A1c pending a.m. 1/2 CKD stage III -Creatinine 0.7 Dementia -Advanced with difficulty with recall, critical thinking and daily activities -At risk for delirium -At risk for progression of symptoms given acute injury/hip fracture Osteoporosis -On alendronate at baseline Plan: * ORIF as per orthopedics * Pain control * Diabetic diet * Sliding scale insulin * Continue basal glargine at reduced dose of 6 units twice daily, adjust as needed as diet increases * Follow-up hemoglobin A1c * Follow renal function * Delirium precautions, frequent reorientation, maintain day/night cycle * Continue PPI * Discharge planning CODE STATUS: DNR Prophylaxis: SCDs Time Spent With Patient Time: Total time spent is greater than 50% in coordination of care (as documented) at patient's floor/unit and/or counseling patient: Total time spent with greater than 50% in coordination of care (as documented) at patient's floor/unit and/or counseling patient:: 25 - 35 minutes QUALITY VTE Deep Vein Thrombosis/Pulmonary Embolism Present on Admission: No
[2021-07-31] MEDS ORDERED: IPRATROPIUM/ALBUTEROL 3 ML AMPUL.NEB NEB PRN (09:29)
[2021-07-31] MEDS ORDERED: fentaNYL 100 MCG/2 ML VIAL IV PRN (09:29)
[2021-07-31] MEDS ORDERED: LACTATED RINGERS 250 ML IV PRN (09:29)
[2021-07-31] MEDS ORDERED: LACTATED RINGERS 1,000 ML IV SCH (09:30)
[2021-07-31] MEDS: INSULIN LISPRO 1 UNIT/0.01 ML UNIT SQ SCH ×4 (10:05→20:27)
[2021-07-31] MEDS: DOCUSATE SODIUM 100 MG CAPSULE PO SCH ×2 (10:06→20:25)
[2021-07-31] MEDS: POTASSIUM CHLORIDE 20 MEQ TABLET PO SCH (10:06)
[2021-07-31] MEDS: DULoxetine 30 MG CAPSULE PO SCH (10:06)
[2021-07-31] MEDS: LACTATED RINGERS 1,000 ML IV SCH ×3 (10:06→23:13)
[2021-07-31] MEDS: OMEPRAZOLE 20 MG CAPSULE PO SCH (10:06)
[2021-07-31] MEDS: ENOXAPARIN 30 MG/0.3 ML SYRINGE SQ SCH ×2 (10:07→20:26)
[2021-07-31] MEDS: MAGNESIUM OXIDE 400 MG TABLET PO SCH ×3 (10:07→20:25)
[2021-07-31] MEDS: INSULIN GLARGINE, HUMAN 1 UNIT/0.01 ML SQ SCH ×2 (10:07→20:26)
[2021-07-31] MEDS: POLYETHYLENE GLYCOL 3350 17 GM PACKET PO SCH (10:07)
[2021-07-31] MEDS: ACETAMINOPHEN 1,000 MG/100 ML BAG IV ONE ×2 (10:09→10:45)
[2021-07-31 10:13] LABS: Estimated Average Glucose(eAG) 235 mg/dL; Hemoglobin A1C 9.8 % Hgb (4.0-6.0)
[2021-07-31] MEDS ORDERED: LIDOCAINE 1% 20 ML VIAL SQ ONE (10:24)
[2021-07-31] MEDS ORDERED: BUPIVACAINE 0.5% 50 ML VIAL IJ ONE (10:24)
--- NOTE | 2021-07-31 10:24 | Consultation ---
DATE OF CONSULTATION: 07/31/2021 CHIEF COMPLAINT: Right hip pain. HISTORY OF PRESENT ILLNESS: This is an 81-year-old female who presents to the emergency department complaining of right hip pain. We were consulted by the emergency department to evaluate a right hip fracture. The patient reports she tripped and fell directly onto her right hip. The patient could not recall full details of the event due to underlying dementia but denies any loss of consciousness, lightheadedness, or any other associated symptoms with fall. REVIEW OF SYSTEMS: Reviewed and otherwise unremarkable except as noted in the HPI. PAST MEDICAL HISTORY: Significant for dementia, constipation, chronic kidney disease stage III, diabetic neuropathy secondary to diabetes type 2, GERD, osteoporosis. SOCIAL HISTORY: She denies any alcohol, tobacco or recreational drug use. MEDICATIONS: Include, 1. Acetaminophen 325 p.o. q. 4 hours p.r.n. 2. Alendronate 70 mg p.o. weekly. 3. Vitamin D3 1000 units p.o. daily. 4. Diphenhydramine 25 mg p.o. q. 4 hours p.r.n. 5. Duloxetine 30 mg capsule 30 mg p.o. daily. 6. Hydrocodone 10/325, she takes 1-2 tabs p.o. q. 4 hours p.r.n. pain. 7. Insulin aspart 100 units/mL, she takes 1 unit subcu at bedtime. 8. Insulin glargine, she takes 11 units subcu b.i.d. 9. Magnesium oxide 400 mg p.o. t.i.d. 10. Metformin 500 mg p.o. daily. 11. Omeprazole 20 mg p.o. daily. 12. MiraLax 17 g p.o. daily. 13. Potassium chloride 20 mEq p.o. daily. 14. Benzonatate 100 mg p.o. t.i.d. p.r.n. 15. Dulcolax 10 mg p.o. at bedtime. 16. Citalopram 10 mg p.o. daily. 17. NovoLog 2 units subcu after breakfast. 18. Methenamine 1 g p.o. b.i.d. 19. Tamsulosin 0.4 mg p.o. at bedtime. 20. Trazodone 150 mg p.o. at bedtime. ALLERGIES: NO KNOWN DRUG ALLERGIES. PHYSICAL EXAMINATION: VITAL SIGNS: Blood pressure is 127/71, pulse 97, respirations 14, pulse ox 93% on room air and temperature 98 degrees Fahrenheit. GENERAL: The patient is alert and oriented in no apparent distress, she is cooperative. Does have some confusion due to underlying dementia. HEENT: Head is atraumatic, normocephalic. ENT is otherwise unremarkable. RESPIRATORY: Lungs are clear to auscultation bilaterally without any wheezes, rhonchi, or rales. CARDIOVASCULAR: Heart is regular rate and rhythm without murmur. ABDOMEN: Soft, nondistended, nontender. Bowel sounds present in all 4 quadrants. MUSCULOSKELETAL: Right lower extremity inspection reveals an externally rotated right lower extremity. There is mild ecchymosis and swelling present over the right hip. Passive and active range of motion of the right hip is significantly limited due to tenderness. There is tenderness to palpation throughout the groin and anterolateral hip. Right lower extremity is neurovascularly intact otherwise. IMAGING: Right hip reveals a mildly comminuted displaced and angulated intertrochanteric proximal femur fracture. ASSESSMENT: Displaced and angulated intertrochanteric/subtrochanteric right hip fracture. PLAN: After consulting with the patient and family, we will plan to proceed with a open reduction and internal fixation of the right proximal femur fracture using intramedullary rodding. Risks, complications, and possible limitations were discussed with the patient and her family and they are like to agree with this plan. Dr. Gusman and Dr. Castaneda were consulted and agree with this plan. The patient's questions were addressed and she agrees with this plan. KENIA:gabriella Job ID: [id number] Doc ID: [id number] Tonny Hendricks PA-C
--- NOTE | 2021-07-31 10:33 | Operative Note ---
Operative Note Operative Note: Pre-operative diagnosis: Right peritrochanteric hip fracture Postoperative diagnosis: Same Procedure: Right hip IM nail medium length Implants: [employer]ynthe[employer] TFN to 35 x 11 mm 130 degree cephalad angle Findings: As above diagnosis, fracture line in the neck just above LT with displaced greater tuberosity fragment, reverse obliquity pattern. Complications: None Estimated Blood loss: 250 cc Assist: Tonny Hendricks whose assistance was critical to safety and efficacy of the procedure DOS: July 31, 2021 Clinical note: The patient continues to suffer from the above mentioned diagnosis. The patient had a fall and then was unable to ambulate. They are brought to [facility] and diagnosed with the above fracture. Orthopedics was consulted. Surgical fixation was advised to decrease the time before returning to ambulation and reduce the risk of prolonged bedrest. Patient understood this and consented the procedure. H&P: The patient was met outside the operating room and symptoms were reviewed and a physical exam performed. The patient demonstrated ongoing symptoms and signs as previously discussed. Risk versus benefits of the procedure were again discussed. Patient wished to proceed with the surgery aware and understanding of these risks. The operative site was marked. The patient was brought into the operating room and prepped and draped in the usual fashion supine on traction table. Traction was applied and the hip was imaged with fluoroscopy. This confirmed good reduction of the fracture both in AP and lateral views. There was slight lateral displacement of the GT fragment but it was felt this cannot be improved upon in the overall reduction of the femoral neck on the shaft appeared good. We began by making an incision directly superior to the GT. A starting wire was introduced with the help of a starting awl directly on the tip of the GT using fluoroscopy to confirm trajectory. The canal was then opened with an entry reamer. A medium IM nail of size scribed above was then introduced. With attempted insertion he was found to stick in the femoral canal. As such the needle was removed, a long guidewire was introduced and we sequentially reamed over top of the guidewire to 12.5 mm. The femoral nail was then reintroduced into the canal and it was then introduced without difficulty. This was advanced with a mallet until the trajectory of the cephalad screw is in line with the center of the femoral head. A guidewire was introduced to the center of the femoral head within 25 mm combined on both AP and lateral views of the apex. An incision was made on the lateral femur, and the lateral femoral cortex was opened through the trocar with a start drill, then the femoral neck was drilled in the usual fashion. A Cephalad screw was then inserted through the trocar into the center of the femoral head. Traction was released and through the guide some compression was applied, which seem to further improve the reduction. The proximal locking screw was then tightened locking the position of the femoral head. Again using the guide a distal locking screw was inserted in the usual fashion securing the distal portion of the nail. Final fluoroscopy views were performed confirming the hip remained well reduced in the nail and locking screws were in good position. The wounds were then irrigated. They were closed with a heavy Vicryl suture for the deep layers followed by Monocryl and nela for the skin. A bulky dressing was applied. Patient was brought to PACU in good condition. They can be weightbearing as tolerated on that leg should follow-up with myself or the PA in 2 weeks time at [place] for wound check and staple removal.
--- NOTE | 2021-07-31 13:08 | Internal Med Progress Note ---
SUBJECTIVE Subjective Patient information: Note initiated : 07/31/21 at 1:04 pm Service Date, if different from initiated Date: [] Patient: Janay Kraft a 81 y/o F admitted on 07/30/21 for Right Hip Pain, Deformity. Chief Complaint: [] Interval history: Ms. Kraft is a 81 year old F with a history of advanced dementia, type 2 diabetes, CKD stage III, depression who presents the ED after ground-level fall at her assisted living facility. Patient states that she tripped and fell to the ground onto her right hip. There is obvious deformity upon arrival in the emergency department. Imaging shows a subtrochanteric fracture. Patient does not recall full details of the episode, but denies any feelings of lightheadedness, striking her head, or loss of consciousness. Her daughter notes that she has been unsteady on her feet for the last few weeks, she had a fall the day previously as well as one a few weeks ago. Dr. Lind for orthopedics has been consulted by the ED, he plans operative repair in the morning. Further evaluation in the ED revealed hyperglycemia with a glucose over 500 at presentation. She received fluids and 5 units of IV insulin in the ED. 1: Glucose down to 89 last night, 6 units of glargine held at bedtime, in the 300s this morning. Seen with daughter at bedside, discussed with orthopedics. Plan for ORIF today. Constitutional Vitals: Vital Signs Temp Pulse Resp BP Pulse Ox 97.3 F 74 20 123/63 98 07/31/21 12:00 07/31/21 11:11 07/31/21 12:00 07/31/21 12:00 07/31/21 12:00 Period Temp Pulse Resp BP Sys/Mckenna Pulse Ox Last 24 Hr 97.0 F-99.0 F 69-100 11-21 101-165/42-72 90-100 Intake and Output 07/30/21 07/31/21 07/31/21 21:59 05:59 13:59 Intake Total 1270 1999 Output Total 740 651 7704 Balance -525 320 950 Weight 41.419 kg Intake & Output: Intake & Output 07/30/21 07/31/21 07/31/21 21:59 05:59 13:59 Intake Total 1270 2000 Output Total 027 184 5584 Balance -525 320 950 Weight 41.419 kg Intake: IV 970 Sodium Chloride 0.9% 1,000 ml @ 970 75 mls/hr IV .[id number] [facility] Rx#: [id number] Oral 300 IV - Manual Only 1999 Output: Urine Catheter Amount 525 950 800 Uretheral (Mays) 500 Estimated Blood Loss 250 Other: Meal Lunch Dinner Percent of Meal Consumed 50% 100% Feeding Ability Assist with Tray Set Up Urine Appearance Clear Clear Clear Uretheral (Mays) Clear Clear Urine Color Bright Yellow Pale Pale Uretheral (Mays) Straw Straw Urine Odor Normal Normal Exam: General: Alert, Awake, No acute Distress Eyes/N/T: EOMI, Head/Neck: neck supple, CV: RRR, No murmurs, Pulm: Clear b/l, no wheezing/rhonchi/rales Abd: soft, nontender, +BS x4 Ext: no clubbing/cyanosis/edema Neuro: Alert, no focal deficits, moves all extremities, Skin: warm/dry OBJ DATA Labs CBC & Chem 7: 07/31/21 05:13 07/31/21 05:13 Labs: Abnormal Lab Results 07/31/21 07/31/21 07/31/21 05:13 05:13 05:13 RBC 3.26 L Hgb 10.2 L Hct 32.7 L MCV 100.3 H Neut % (Auto) Lymph % (Auto) Lymph # (Auto) 1.08 L POC BUN Glucose 370 H POC Glucose Hemoglobin A1c 9.8 H Calcium 7.7 L Urine Appearance Urine Glucose (UA) Urine Ketones Urine Bacteria 07/30/21 07/30/21 07/30/21 11:20 09:55 09:55 RBC Hgb Hct MCV Neut % (Auto) 84.7 H Lymph % (Auto) 9.0 L Lymph # (Auto) 0.71 L POC BUN 36 H Glucose POC Glucose 550 H* Hemoglobin A1c Calcium Urine Appearance Hazy A Urine Glucose (UA) >=500 A Urine Ketones 5 A Urine Bacteria Few A Meds: Medications Acetaminophen (Acetaminophen 325 Mg Tablet) 650 mg PO Q6HP PRN; Protocol PRN Reason: Per Pain Protocol/Fever > 101 Hydrocodone Bitart/Acetaminophen (Hydrocodone/Apap 5/325mg Tablet) 1 tab PO Q4HP PRN; Protocol PRN Reason: Per Pain Protocol Last Admin: 07/30/21 20:47 Dose: 1 tab Documented by: Bisacodyl (Bisacodyl 10 Mg Supp.Rect) 10 mg KS HS [facility] Last Admin: 07/30/21 20:14 Dose: Not Given Documented by: Cefazolin Sodium (Cefazolin 1 Gm Vial) 1 gm IV PREOP [facility] Stop: 07/31/21 15:00 Last Admin: 07/31/21 09:20 Dose: 1 gm Documented by: Dextrose (Dextrose 50% 50 Ml Vial) 0 ml IV UD PRN PRN Reason: Hypoglycemia Diagnostic Test (Pha) (Accu-Chek 1 Each Strip) 1 each FS ACHS [facility] Last Admin: 07/31/21 11:15 Dose: 1 each Documented by: Docusate Sodium (Docusate Sodium 100 Mg Capsule) 100 mg PO BID [facility] Last Admin: 07/31/21 10:06 Dose: Not Given Documented by: Duloxetine HCl (Duloxetine 30 Mg Capsule) 30 mg PO DAILY [facility] Last Admin: 07/31/21 10:06 Dose: Not Given Documented by: Enoxaparin Sodium (Enoxaparin 30 Mg/0.3 Ml Syringe) 30 mg SQ BID [facility] Last Admin: 07/31/21 10:07 Dose: Not Given Documented by: Glucose (Dextrose 31 Gm Oral.Susp) 15 gm PO PRN PRN PRN Reason: Hypoglycemia Hydromorphone HCl (Hydromorphone 0.5 Mg/0.5 Ml Syringe) 0.5 mg IV Q2HP PRN; Protocol PRN Reason: Per Pain Protocol Last Admin: 07/31/21 03:46 Dose: 0.5 mg Documented by: Lactated Ringer's (Lactated Ringers) 1,000 mls @ 75 mls/hr IV .[id number] [facility] Last Admin: 07/31/21 10:06 Dose: Not Given Documented by: Insulin Glargine (Insulin Glargine, Human 1 Unit/0.01 Ml) 6 unit SQ BID [facility] Last Admin: 07/31/21 10:07 Dose: Not Given Documented by: Insulin Human Lispro (Insulin Lispro 1 Unit/0.01 Ml Unit) 0 unit SQ [facility]; Protocol Last Admin: 07/31/21 10:05 Dose: Not Given Documented by: Magnesium Oxide (Magnesium Oxide 400 Mg Tablet) 400 mg PO TID [facility] Last Admin: 07/31/21 10:07 Dose: Not Given Documented by: Naloxone HCl (Naloxone Hcl 0.4 Mg/Ml Vial) 0.1 mg IV Q2MIN PRN PRN Reason: Opiate Reversal Omeprazole (Omeprazole 20 Mg Capsule) 20 mg PO ACB [facility] Last Admin: 07/31/21 10:06 Dose: Not Given Documented by: Ondansetron HCl (Ondansetron 4 Mg/2 Ml Vial) 4 mg IV Q6HP PRN PRN Reason: Nausea And Vomiting Ondansetron HCl (Ondansetron 4 Mg/2 Ml Vial) 4 mg IV Q4HP PRN; Protocol PRN Reason: Nausea And Vomiting Polyethylene Glycol (Polyethylene Glycol 3350 17 Gm Packet) 17 gm PO DAILY [facility] Last Admin: 07/31/21 10:07 Dose: Not Given Documented by: Potassium Chloride (Potassium Chloride 20 Meq Tablet) 20 meq PO DAILY [facility] Last Admin: 07/31/21 10:06 Dose: Not Given Documented by: Senna (Sennosides 1 Tablet) 2 tab PO [facility] Last Admin: 07/30/21 20:15 Dose: Not Given Documented by: Sodium Chloride (0.9 % Sodium Chloride 10 Ml Syringe) 10 ml IV Q8 [facility] Last Admin: 07/31/21 04:00 Dose: Not Given Documented by: Tamsulosin HCl (Tamsulosin 0.4 Mg Capsule) 0.4 mg PO [facility] Last Admin: 07/30/21 20:47 Dose: 0.4 mg Documented by: Throat Lozenges (Benzocaine/Menthol 1 Lozenge) 1 lozenge PO PRN PRN PRN Reason: Sore Throat Trazodone HCl (Trazodone Hcl 150 Mg Tablet) 150 mg PO [facility] Last Admin: 07/30/21 20:47 Dose: 150 mg Documented by: A/P Narrative A/P Narrative: A: * Right intertrochanteric hip fracture: s/p ORIF (07/31) Netting -Due to ground-level fall, Pathologic fracture associated with osteoporosis *DM 2 w/hyperglycemia -Daughter notes has had significantly elevated glucoses intermittently -A1c 9.8 -On 11 units twice daily of glargine, 2 units of mealtime aspart and Metformin -Labile glucoses in the hospital *CKD stage III: *Dementia, Advanced with difficulty with recall, critical thinking and daily activities: -At risk for delirium -At risk for progression of symptoms given acute injury/hip fracture *Osteoporosis: On alendronate at baseline *[facility] -Pain control -Diabetic diet, SSI, Continue glargine at reduced dose of 6 units twice daily, adjust as needed as diet increases -Follow renal function -Delirium precautions, frequent reorientation, maintain day/night cycle -Continue PPI -ppx: SCD, post op per ortho / home ppi CODE STATUS: DNR Time Spent With Patient Time: Total time spent is greater than 50% in coordination of care (as documented) at patient's floor/unit and/or counseling patient: QUALITY VTE Deep Vein Thrombosis/Pulmonary Embolism Present on Admission: No
[2021-07-31] MEDS: HYDROcodone/APAP 5/325MG TABLET PO PRN ×3 (13:38→23:18)
--- NOTE | 2021-07-31 14:06 | XRay Report ---
CLINICAL INFORMATION: Follow up intertrochanteric fracture right hip COMPARISON: Preoperative films 07/31/2021. FINDINGS: Intertrochanteric fracture of the right hip is reduced to anatomic alignment and transfixed by gamma nail. Moderate overlying soft tissue swelling. Mild bilateral hip and SI joint degeneration with chondrocalcinosis in the femoral head. IMPRESSION: ORIF intertrochanteric fracture-right hip anatomic alignment Interpreted and Authenticated by: Jesus Jennings 07/31/21
--- NOTE | 2021-07-31 14:27 | XRay Report ---
CLINICAL INFORMATION: Intraoperative films intertrochanter fracture ORIF COMPARISON: None. FINDINGS: Four digital images are submitted which show reduction in the trochanteric fracture and transfixation by gamma nail. Alignment is anatomic. IMPRESSION: ORIF intertrochanteric /subtrochanteric fracture which is anatomically aligned Interpreted and Authenticated by: Jesus Jennings 07/31/21
[2021-07-31] MEDS: traZODone HCL 150 MG TABLET PO SCH (20:25)
[2021-07-31] MEDS: TAMSULOSIN 0.4 MG CAPSULE PO SCH (20:25)
[2021-07-31] MEDS: SENNOSIDES 1 TABLET PO SCH (20:25)
[2021-07-31] MEDS: BISACODYL 10 MG SUPP.RECT PR SCH (20:26)
[2021-08-01] MEDS: 0.9 % SODIUM CHLORIDE 10 ML SYRINGE IV SCH ×3 (04:43→21:50)
[2021-08-01 06:36] LABS: Hematocrit 28.4 % (34.1-44.9); Hemoglobin 9.1 g/dL (11.2-15.7); Platelet Count 200 K/mcL (140-440); RBC 2.84 M/mcL (3.59-5.38); Red Cell Distribution Width 12.2 % (11.5-14.5); WBC 8.3 K/mcL (4.5-11.0)
[2021-08-01 07:09] LABS: Prothrombin Time 13.2 sec (11.9-14.5)
[2021-08-01 07:16] LABS: Blood Urea Nitrogen 19 mg/dL (8-23); Calcium 7.6 mg/dL (8.6-10.4); Carbon Dioxide 24 mmol/L (22-30); Chloride 106 mmol/L (96-108); Glomerular Filtration Rate 84; Glucose 266 mg/dL (70-105)
[2021-08-01] MEDS: HYDROcodone/APAP 5/325MG TABLET PO PRN ×3 (07:17→16:10)
[2021-08-01] MEDS: OMEPRAZOLE 20 MG CAPSULE PO SCH (07:17)
--- NOTE | 2021-08-01 07:29 | EKG ---
[facility] Test Date: 2021-07-30 Pat Name: Janay Kraft Department: ED Room: Gender: Female [employer]: davide : 1940 Requested By: Rodriguez Franco Order Number: [id number] Reading MD: Jesus Lee M.D. Measurements Intervals [place] Rate: 95 P: -61 VT: 124 QRS: -56 QRSD: 91 T: 83 QT: 381 QTc: 479 Interpretive Statements [employer] Left anterior fascicular block Probable left ventricular hypertrophy Anterior Q waves, possibly due to LVH Electronically Signed On 08-01-2021 7:28:51 PST by Jesus Lee M.D. /[facility] [place]/M0/[id number]/[id number]
--- NOTE | 2021-08-01 07:29 | Internal Med Progress Note ---
SUBJECTIVE Subjective Patient information: Note initiated : 08/01/21 at 7:27 am Service Date, if different from initiated Date: [] Patient: Janay Kraft a 81 y/o F admitted on 07/30/21 for Right Hip Pain, Deformity. Chief Complaint: [] Interval history: Ms. Kraft is a 81 year old F with a history of advanced dementia, type 2 diabetes, CKD stage III, depression who presents the ED after ground-level fall at her assisted living facility. Patient states that she tripped and fell to the ground onto her right hip. There is obvious deformity upon arrival in the emergency department. Imaging shows a subtrochanteric fracture. Patient does not recall full details of the episode, but denies any feelings of lightheadedness, striking her head, or loss of consciousness. Her daughter notes that she has been unsteady on her feet for the last few weeks, she had a fall the day previously as well as one a few weeks ago. Dr. Lind for orthopedics has been consulted by the ED, he plans operative repair in the morning. Further evaluation in the ED revealed hyperglycemia with a glucose over 500 at presentation. She received fluids and 5 units of IV insulin in the ED. 07/31: Glucose down to 89 last night, 6 units of glargine held at bedtime, in the 300s this morning. Seen with daughter at bedside, discussed with orthopedics. Plan for ORIF today. 08/01 Surgical repair yesterday. No overnight event or new complaints. Blood glucose quite labile. Increase her basal insulin closer to her home dose. Review of Systems: denies headache/fever/chills/nausea/vomiting/chest or abdominal pain/cough/dyspnea/diarrhea. Otherwise see above. Constitutional Vitals: Vital Signs Temp Pulse Resp BP Pulse Ox 99.1 F H 77 18 126/51 95 08/01/21 06:52 08/01/21 06:52 08/01/21 06:52 08/01/21 06:52 08/01/21 06:52 Period Temp Pulse Resp BP Sys/Mckenna Pulse Ox Last 24 Hr 97.0 F-100.1 F 53-90 11-21 101-165/38-71 90-100 Intake and Output 07/31/21 08/01/21 08/01/21 21:59 05:59 13:59 Intake Total 1000 1000 Output Total 550 650 Balance 450 -650 1000 Weight 41.022 kg Intake & Output: Intake & Output 07/31/21 08/01/21 08/01/21 21:59 05:59 13:59 Intake Total 1000 1000 Output Total 550 650 Balance 450 -650 1000 Weight 41.022 kg Intake: IV 1000 1000 Sodium Chloride 0.9% 1,000 ml @ 1000 75 mls/hr IV .[id number] [facility] Rx#: [id number] Lactated Ringers 1,000 ml @ 75 1000 mls/hr IV .[id number] [facility] Rx#: [id number] Output: Urine Catheter Amount 550 650 Other: Urine Appearance Clear Clear Uretheral (Mays) Clear Urine Color Pale Bright Yellow Uretheral (Mays) Pale Bright Yellow Urine Odor Normal Exam: General: Alert, Awake, No acute Distress Eyes/N/T: EOMI, Head/Neck: neck supple, CV: RRR, No murmurs, Pulm: Clear b/l, no wheezing/rhonchi/rales Abd: soft, nontender, +BS x4 Ext: no clubbing/cyanosis/edema Neuro: Alert, no focal deficits, moves all extremities, Skin: warm/dry OBJ DATA Labs CBC & Chem 7: 08/01/21 05:31 08/01/21 05:31 Labs: Abnormal Lab Results 08/01/21 08/01/21 07/31/21 05:31 05:31 05:13 RBC 2.84 L Hgb 9.1 L Hct 28.4 L MCV Neut % (Auto) Lymph % (Auto) Lymph # (Auto) Anion Gap 7.0 L POC BUN Glucose 266 H POC Glucose Hemoglobin A1c 9.8 H Calcium 7.6 L Urine Appearance Urine Glucose (UA) Urine Ketones Urine Bacteria 07/31/21 07/31/21 07/30/21 05:13 05:13 11:20 RBC 3.26 L Hgb 10.2 L Hct 32.7 L MCV 100.3 H Neut % (Auto) Lymph % (Auto) Lymph # (Auto) 1.08 L Anion Gap POC BUN Glucose 370 H POC Glucose Hemoglobin A1c Calcium 7.7 L Urine Appearance Hazy A Urine Glucose (UA) >=500 A Urine Ketones 5 A Urine Bacteria Few A 07/30/21 07/30/21 09:55 09:55 RBC Hgb Hct MCV Neut % (Auto) 84.7 H Lymph % (Auto) 9.0 L Lymph # (Auto) 0.71 L Anion Gap POC BUN 36 H Glucose POC Glucose 550 H* Hemoglobin A1c Calcium Urine Appearance Urine Glucose (UA) Urine Ketones Urine Bacteria Meds: Medications Acetaminophen (Acetaminophen 325 Mg Tablet) 650 mg PO Q6HP PRN; Protocol PRN Reason: Per Pain Protocol/Fever > 101 Hydrocodone Bitart/Acetaminophen (Hydrocodone/Apap 5/325mg Tablet) 1 tab PO Q4HP PRN; Protocol PRN Reason: Per Pain Protocol Last Admin: 08/01/21 07:17 Dose: 1 tab Documented by: Bisacodyl (Bisacodyl 10 Mg Supp.Rect) 10 mg OR HS [facility] Last Admin: 07/31/21 20:26 Dose: 10 mg Documented by: Dextrose (Dextrose 50% 50 Ml Vial) 0 ml IV UD PRN PRN Reason: Hypoglycemia Diagnostic Test (Pha) (Accu-Chek 1 Each Strip) 1 each FS ACHS [facility] Last Admin: 08/01/21 07:17 Dose: 1 each Documented by: Docusate Sodium (Docusate Sodium 100 Mg Capsule) 100 mg PO BID [facility] Last Admin: 07/31/21 20:25 Dose: 100 mg Documented by: Duloxetine HCl (Duloxetine 30 Mg Capsule) 30 mg PO DAILY [facility] Last Admin: 07/31/21 10:06 Dose: Not Given Documented by: Enoxaparin Sodium (Enoxaparin 30 Mg/0.3 Ml Syringe) 30 mg SQ BID [facility] Last Admin: 07/31/21 20:26 Dose: 30 mg Documented by: Glucose (Dextrose 31 Gm Oral.Susp) 15 gm PO PRN PRN PRN Reason: Hypoglycemia Hydromorphone HCl (Hydromorphone 0.5 Mg/0.5 Ml Syringe) 0.5 mg IV Q2HP PRN; Pro tocol PRN Reason: Per Pain Protocol Last Admin: 07/31/21 03:46 Dose: 0.5 mg Documented by: Lactated Ringer's (Lactated Ringers) 1,000 mls @ 75 mls/hr IV .[id number] [facility] Last Infusion: 08/01/21 07:06 Dose: Infused Documented by: Insulin Glargine (Insulin Glargine, Human 1 Unit/0.01 Ml) 6 unit SQ BID [facility] Last Admin: 07/31/21 20:26 Dose: 6 unit Documented by: Insulin Human Lispro (Insulin Lispro 1 Unit/0.01 Ml Unit) 0 unit SQ [facility]; Protocol Last Admin: 07/31/21 20:27 Dose: 8 units Documented by: Magnesium Oxide (Magnesium Oxide 400 Mg Tablet) 400 mg PO TID [facility] Last Admin: 07/31/21 20:25 Dose: 400 mg Documented by: Naloxone HCl (Naloxone Hcl 0.4 Mg/Ml Vial) 0.1 mg IV Q2MIN PRN PRN Reason: Opiate Reversal Omeprazole (Omeprazole 20 Mg Capsule) 20 mg PO ACB [facility] Last Admin: 08/01/21 07:17 Dose: 20 mg Documented by: Ondansetron HCl (Ondansetron 4 Mg/2 Ml Vial) 4 mg IV Q6HP PRN PRN Reason: Nausea And Vomiting Ondansetron HCl (Ondansetron 4 Mg/2 Ml Vial) 4 mg IV Q4HP PRN; Protocol PRN Reason: Nausea And Vomiting Polyethylene Glycol (Polyethylene Glycol 3350 17 Gm Packet) 17 gm PO DAILY [facility] Last Admin: 07/31/21 10:07 Dose: Not Given Documented by: Potassium Chloride (Potassium Chloride 20 Meq Tablet) 20 meq PO DAILY [facility] Last Admin: 07/31/21 10:06 Dose: Not Given Documented by: Senna (Sennosides 1 Tablet) 2 tab PO [facility] Last Admin: 07/31/21 20:25 Dose: 2 tab Documented by: Sodium Chloride (0.9 % Sodium Chloride 10 Ml Syringe) 10 ml IV Q8 [facility] Last Admin: 08/01/21 04:43 Dose: Not Given Documented by: Tamsulosin HCl (Tamsulosin 0.4 Mg Capsule) 0.4 mg PO [facility] Last Admin: 07/31/21 20:25 Dose: 0.4 mg Documented by: Throat Lozenges (Benzocaine/Menthol 1 Lozenge) 1 lozenge PO PRN PRN PRN Reason: Sore Throat Trazodone HCl (Trazodone Hcl 150 Mg Tablet) 150 mg PO [facility] Last Admin: 07/31/21 20:25 Dose: 150 mg Documented by: A/P Narrative A/P Narrative: A: * Right intertrochanteric hip fracture: s/p ORIF (07/31) Netting -Due to ground-level fall, Pathologic fracture associated with osteoporosis *DM 2 w/hyperglycemia -Daughter notes has had significantly elevated glucoses intermittently -A1c 9.8 -On 11 units twice daily of glargine, 2 units of mealtime aspart and Metformin -Labile glucoses in the hospital *CKD stage III: *Dementia, Advanced with difficulty with recall, critical thinking and daily activities: -At risk for delirium -At risk for progression of symptoms given acute injury/hip fracture *Osteoporosis: On alendronate at baseline *GERD: Plan: -hip per orthopedics -Pain control -titrate basal insulin back up, SSI -Follow renal function -Delirium precautions, frequent reorientation, maintain day/night cycle -Continue PPI -ST eval -ppx: SCD, post op per ortho lovenox / home ppi CODE STATUS: DNR Time Spent With Patient Time: Total time spent is greater than 50% in coordination of care (as documented) at patient's floor/unit and/or counseling patient: QUALITY VTE Deep Vein Thrombosis/Pulmonary Embolism Present on Admission: No
[2021-08-01] MEDS: DOCUSATE SODIUM 100 MG CAPSULE PO SCH ×2 (08:21→21:41)
[2021-08-01] MEDS: DULoxetine 30 MG CAPSULE PO SCH (08:21)
[2021-08-01] MEDS: INSULIN LISPRO 1 UNIT/0.01 ML UNIT SQ SCH ×4 (08:21→21:43)
[2021-08-01] MEDS: ENOXAPARIN 30 MG/0.3 ML SYRINGE SQ SCH ×2 (08:22→21:42)
[2021-08-01] MEDS: INSULIN GLARGINE, HUMAN 1 UNIT/0.01 ML SQ SCH ×2 (08:22→21:42)
[2021-08-01] MEDS: POLYETHYLENE GLYCOL 3350 17 GM PACKET PO SCH (08:23)
[2021-08-01] MEDS: MAGNESIUM OXIDE 400 MG TABLET PO SCH ×3 (08:23→21:42)
[2021-08-01] MEDS: POTASSIUM CHLORIDE 20 MEQ TABLET PO SCH (09:47)
--- NOTE | 2021-08-01 10:17 | Discharge Summary ---
Discharge Provider Provider Patient information: Note initiated : 08/01/21 at 10:16 am Service Date, if different from initiated Date: [] Patient: Janay Kraft a 81 y/o F admitted on 07/30/21 for Right Hip Pain, Deformity. Chief Complaint: [] Date of admission: 07/30/21 13:46 Discharge date: 08/02/21 Primary care physician: Avila Renner Consults: 07/30/21 Consult to Physician [CONS] Stat Comment: Consulting Provider: Consuelo Castaneda Reason For Exam: Physician to Consult Consult to Physician [CONS] Stat Comment: Consulting Provider: Vasu Gusman Reason For Exam: Physician to Consult Discharge Meds Discharge Medications Home Medications acetaminophen 325 mg tablet (Tylenol) 325 mg PO Q4HP PRN 11/04/15 [History Confirmed 07/30/21 Last Taken 11/03/15] alendronate 70 mg tablet (Fosamax) 70 mg PO WEEKLY 11/04/15 [History Confirmed 07/30/21 Last Taken 07/27/21] cholecalciferol (vitamin D3) 25 mcg (1,000 unit) capsule (Vitamin D3) 1,000 unit PO DAILY 11/04/15 [History Confirmed 07/30/21 Last Taken 11/03/15] diphenhydramine HCl 25 mg capsule 25 mg PO Q4HP PRN 11/04/15 [History Confirmed 07/30/21 Last Taken Unknown] duloxetine 30 mg capsule,delayed release (Cymbalta) 30 mg PO DAILY 11/04/15 [ History Confirmed 07/30/21 Last Taken 11/03/15] hydrocodone 10 mg-acetaminophen 325 mg tablet 1 - 2 tab PO Q4H PRN 11/04/15 [History Confirmed 07/30/21 Last Taken Unknown] insulin aspart U-100 100 unit/mL (3 mL) subcutaneous pen (Novolog Flexpen U-100 Insulin aspart) 1 unit SQ HS 11/04/15 [History Confirmed 07/30/21 Last Taken 11/03/15] insulin glargine 100 unit/mL (3 mL) subcutaneous pen (Lantus Solostar U-100 Insulin) 11 unit SQ BID 11/04/15 [History Confirmed 07/30/21 Last Taken 11/03/15] magnesium oxide 400 mg (241.3 mg magnesium) tablet (MagOx) 400 mg PO TID 11/04/15 [History Confirmed 07/30/21 Last Taken Unknown] metformin 500 mg tablet (Glucophage) 500 mg PO DAILY 11/04/15 [History Confirmed 07/30/21 Last Taken 11/03/15] omeprazole 20 mg capsule,delayed release 20 mg PO ACB 11/04/15 [History Confirmed 07/30/21 Last Taken 11/03/15] polyethylene glycol 3350 17 gram oral powder packet (Miralax) 17 gm PO DAILY 11/04/15 [History Confirmed 07/30/21 Last Taken 11/03/15] potassium chloride 20 mEq tablet,extended release(part/cryst) (Klor-Con M) 20 meq PO DAILY 11/04/15 [History Confirmed 07/30/21 Last Taken 11/04/15] benzonatate 100 mg capsule 100 mg PO TID PRN 07/30/21 [History Confirmed 07/30/21 Last Taken Unknown] bisacodyl 10 mg rectal suppository (Dulcolax (bisacodyl)) 10 mg MD HS 07/30/21 [History Confirmed 07/30/21 Last Taken Unknown] citalopram 10 mg tablet 10 mg PO QDAY 07/30/21 [History Confirmed 07/30/21 Last Taken Unknown] insulin aspart U-100 100 unit/mL (3 mL) subcutaneous pen (Novolog Flexpen U-100 Insulin aspart) 2 unit SUBCUT AC 07/30/21 [History Confirmed 07/30/21 Last Taken Unknown] methenamine hippurate 1 gram tablet 1 g PO BID 07/30/21 [History Confirmed 07/30/21 Last Taken Unknown] tamsulosin 0.4 mg capsule 0.4 mg PO HS 07/30/21 [History Confirmed 07/30/21 Last Taken Unknown] trazodone 150 mg tablet 150 mg PO HS 07/30/21 [History Confirmed 07/30/21 Last Taken Unknown] aspirin 81 mg tablet,delayed release (Enteric Coated Aspirin) 81 mg PO BID #60 tab 07/31/21 [Rx Last Taken Unknown] hydrocodone 5 mg-acetaminophen 325 mg tablet 1 tab PO Q4H PRN #60 tab 07/31/21 [Rx Last Taken Unknown] nitrofurantoin monohydrate/macrocrystals 100 mg capsule (Macrobid) 100 mg PO BID #7 cap 08/01/21 [Rx Last Taken Unknown] COURSE Hospital Course Hospital course: Interval history: Ms. Kraft is a 81 year old F with a history of advanced dementia, type 2 diabetes, CKD stage III, depression who presents the ED after ground-level fall at her assisted living facility. Patient states that she tripped and fell to the ground onto her right hip. There is obvious deformity upon arrival in the emergency department. Imaging shows a subtrochanteric fracture. Patient does not recall full details of the episode, but denies any feelings of lightheadedness, striking her head, or loss of consciousness. Her daughter notes that she has been unsteady on her feet for the last few weeks, she had a fall the day previously as well as one a few weeks ago. Dr. Lind for orthopedics has been consulted by the ED, he plans operative repair in the morning. Further evaluation in the ED revealed hyperglycemia with a glucose over 500 at presentation. She received fluids and 5 units of IV insulin in the ED. /: Glucose down to 89 last night, 6 units of glargine held at bedtime, in the 300s this morning. Seen with daughter at bedside, discussed with orthopedics. Plan for ORIF today. 1/3 Surgical repair yesterday. No overnight event or new complaints. Blood glucose quite labile. Increase her basal insulin closer to her home dose. 08/02 No overnight event or new complaints. Placement to rehab facility. A: * Right intertrochanteric hip fracture: s/p ORIF (07/31) [place] -Due to ground-level fall, Pathologic fracture associated with osteoporosis *DM 2 w/hyperglycemia -A1c 9.8 *CKD stage III: *Dementia, Advanced with difficulty with recall, critical thinking and daily activities: *Osteoporosis: On alendronate at baseline *GERD: Plan: -f/u with orthopedics -PT/OT Discharge diagnosis: Right hip fracture Secondary discharge diagnosis: Diabetes chronic kidney disease dementia osteoporosis GERD Time Spent with Patient Time attestation: Total time spent providing and/or coordinating discharge services: Time spent: Greater than 30 minutes EXAM Constitutional Vitals: Temp Pulse Resp BP Pulse Ox 99.1 F H 77 18 126/51 95 08/01/21 06:52 08/01/21 06:52 08/01/21 06:52 08/01/21 06:52 08/01/21 06:52 Discharge Data Data Completed and Pending Labs on day of discharge: Labs from last 24 hours 08/01/21 08/01/21 08/01/21 05:32 05:31 05:31 WBC 8.3 RBC 2.84 L Hgb 9.1 L Hct 28.4 L MCV 100.0 MCH 32.0 MCHC 32.0 RDW 12.2 Plt Count 200 MPV 10.0 PT 13.2 INR 1.0 Sodium 137 Potassium 5.0 Chloride 106 Carbon Dioxide 24 Anion Gap 7.0 L BUN 19 Creatinine 0.6 GFR Calculation 84 Glucose 266 H Calcium 7.6 L Preliminary micro results at discharge 07/30/21 11:20 Urine Culture - Preliminary Urine - Catheterized Gram negative bacillus Discharge Plan Patient/Caregiver Discharge Instructions Activity: ambulate only with your walker Diet: Regular Diet Activity Restrictions/Additional Instructions: 50% weight bearing Prescriptions: New hydrocodone-acetaminophen 5-325 mg tablet 1 tab PO Q4H PRN (Reason: pain) Qty: 60 0RF aspirin [Enteric Coated Aspirin] 81 mg tablet,delayed release (DR/EC) 81 mg PO BID Qty: 60 0RF nitrofurantoin monohyd/m-cryst [Macrobid] 100 mg capsule 100 mg PO BID Qty: 7 0RF Rx Instructions: must administer with a meal/food Continued metformin [Glucophage] 500 MG tablet 500 mg PO DAILY 0RF acetaminophen [Tylenol] 325 MG tablet 325 mg PO Q4HP PRN (Reason: Pain) 0RF polyethylene glycol 3350 [Miralax] 17 GM powder in packet 17 gm PO DAILY 0RF alendronate [Fosamax] 70 MG tablet 70 mg PO WEEKLY 0RF Rx Instructions: Takes on Sun hydrocodone-acetaminophen 1 TAB tablet 1 - 2 tab PO Q4H PRN (Reason: Pain) 0RF potassium chloride [Klor-Con M20] 20 MEQ tablet,ER particles/crystals 20 meq PO DAILY 0RF magnesium oxide [MagOx] 400 MG tablet 400 mg PO TID 0RF diphenhydramine HCl 25 MG capsule 25 mg PO Q4HP PRN (Reason: Allergic Symptoms) 0RF omeprazole 20 MG capsule,delayed release(DR/EC) 20 mg PO ACB 0RF cholecalciferol (vitamin D3) [Vitamin D3] 1,000 UNIT capsule 1,000 unit PO DAILY 0RF insulin aspart U-100 [Novolog Flexpen U-100 Insulin] 100 UNIT/ML insulin pen 1 unit SQ HS 0RF duloxetine [Cymbalta] 30 MG capsule,delayed release(DR/EC) 30 mg PO DAILY 0RF Lantus Solostar U-100 Insulin 100 UNIT/ML insulin pen 11 unit SQ BID 0RF citalopram 10 mg Tablet 10 mg PO QDAY 0RF methenamine hippurate 1 gram tablet 1 g PO BID 0RF tamsulosin 0.4 mg capsule 0.4 mg PO HS 0RF benzonatate 100 mg Capsule 100 mg PO TID PRN (Reason: Cough) 0RF bisacodyl [Dulcolax (bisacodyl)] 10 mg suppository 10 mg MD HS 0RF Label Comments: prn trazodone 150 mg tablet 150 mg PO HS 0RF insulin aspart U-100 [Novolog Flexpen U-100 Insulin] 100 unit/mL (3 mL) insulin pen 2 unit SUBCUT AC 0RF Follow Up Plan Follow up with: Vasu Gusman MD [Physician] - Avila Renner DO [Primary Care Provider] - Patient Disposition: Xfer SNF Prognosis: Fair Rehab Potential: Fair I certify that the patient requires SNF services: Yes Overall status at discharge: patient is progressing back to baseline Discharge Orders: Discharge Order (Routine); Ordered 08/03/21 Ordered By: Vasu Gusman QUALITY VTE Deep Vein Thrombosis/Pulmonary Embolism Present on Admission: No
[2021-08-01] MEDS: HYDROmorphone 0.5 MG/0.5 ML SYRINGE IV PRN ×2 (12:47→18:47)
[2021-08-01] MEDS: NITROFURANTOIN SR 100 MG CAPSULE PO SCH ×2 (15:12→21:41)
--- NOTE | 2021-08-01 15:49 | Orthopedic Progress Note ---
SUBJECTIVE Subjective Patient information: Note initiated : 08/01/21 at 3:45 pm Service Date, if different from initiated Date: [] Patient: Janay Kraft a 81 y/o F admitted on 07/30/21 for Right Hip Pain, Deformity. Chief Complaint: Right hip fracture postop day 1 treated with IM nail Principal diagnosis: right hip fracture postop day 1 treated with IM nail. Interval history: She was seen in bed and did not have any major complaints other than pain with movement. Constitutional Vitals: Vital Signs Temp Pulse Resp BP Pulse Ox 100.1 F H 97 H 18 111/95 96 08/01/21 11:20 08/01/21 11:20 08/01/21 11:20 08/01/21 11:20 08/01/21 11:20 Period Temp Pulse Resp BP Sys/Mckenna Pulse Ox Last 24 Hr 98.5 F-100.1 F 53-97 16-20 101-126/38-95 94-96 Intake and Output 08/01/21 08/01/21 08/01/21 05:59 13:59 21:59 Intake Total 2280 Output Total 650 Balance -650 2280 Weight 90 lb 7 oz Patient Weight 08/02/21 05:59 Weight 90 lb 7 oz Intake & Output: Intake & Output 08/01/21 08/01/21 08/01/21 05:59 13:59 21:59 Intake Total 2280 Output Total 650 Balance -650 2280 Weight 90 lb 7 oz Intake: IV 1000 Lactated Ringers 1,000 ml @ 75 1000 mls/hr IV .[id number] [facility] Rx#: [id number] Oral 1280 Output: Urine Catheter Amount 650 Other: Meal Breakfast Percent of Meal Consumed 100% Feeding Ability Assist with Tray Set Up Urine Appearance Clear Clear Urine Color Bright Yellow Pale Urine Odor Normal Additional findings Additional findings: The patient was alert and oriented in bed. The dressings were clean dry and intact. She was neurovascularly intact in her right leg she did have pain with attempted ambulation OBJ DATA Labs CBC & Chem 7: 08/01/21 05:31 08/01/21 05:31 Labs: Abnormal Lab Results 08/01/21 08/01/21 07/31/21 05:31 05:31 05:13 RBC 2.84 L Hgb 9.1 L Hct 28.4 L MCV Neut % (Auto) Lymph % (Auto) Lymph # (Auto) Anion Gap 7.0 L POC BUN Glucose 266 H POC Glucose Hemoglobin A1c 9.8 H Calcium 7.6 L Urine Appearance Urine Glucose (UA) Urine Ketones Urine Bacteria 07/31/21 07/31/21 07/30/21 05:13 05:13 11:20 RBC 3.26 L Hgb 10.2 L Hct 32.7 L MCV 100.3 H Neut % (Auto) Lymph % (Auto) Lymph # (Auto) 1.08 L Anion Gap POC BUN Glucose 370 H POC Glucose Hemoglobin A1c Calcium 7.7 L Urine Appearance Hazy A Urine Glucose (UA) >=500 A Urine Ketones 5 A Urine Bacteria Few A 07/30/21 07/30/21 09:55 09:55 RBC Hgb Hct MCV Neut % (Auto) 84.7 H Lymph % (Auto) 9.0 L Lymph # (Auto) 0.71 L Anion Gap POC BUN 36 H Glucose POC Glucose 550 H* Hemoglobin A1c Calcium Urine Appearance Urine Glucose (UA) Urine Ketones Urine Bacteria Meds: Medications Acetaminophen (Acetaminophen 325 Mg Tablet) 650 mg PO Q6HP PRN; Protocol PRN Reason: Per Pain Protocol/Fever > 101 Hydrocodone Bitart/Acetaminophen (Hydrocodone/Apap 5/325mg Tablet) 1 tab PO Q4HP PRN; Protocol PRN Reason: Per Pain Protocol Last Admin: 08/01/21 11:29 Dose: 1 tab Documented by: Bisacodyl (Bisacodyl 10 Mg Supp.Rect) 10 mg CO HS [facility] Last Admin: 07/31/21 20:26 Dose: 10 mg Documented by: Dextrose (Dextrose 50% 50 Ml Vial) 0 ml IV UD PRN PRN Reason: Hypoglycemia Diagnostic Test (Pha) (Accu-Chek 1 Each Strip) 1 each FS ACHS [facility] Last Admin: 08/01/21 11:13 Dose: 1 each Documented by: Docusate Sodium (Docusate Sodium 100 Mg Capsule) 100 mg PO BID [facility] Last Admin: 08/01/21 08:21 Dose: 100 mg Documented by: Duloxetine HCl (Duloxetine 30 Mg Capsule) 30 mg PO DAILY [facility] Last Admin: 08/01/21 08:21 Dose: 30 mg Documented by: Enoxaparin Sodium (Enoxaparin 30 Mg/0.3 Ml Syringe) 30 mg SQ BID [facility] Last Admin: 08/01/21 08:22 Dose: 30 mg Documented by: Glucose (Dextrose 31 Gm Oral.Susp) 15 gm PO PRN PRN PRN Reason: Hypoglycemia Hydromorphone HCl (Hydromorphone 0.5 Mg/0.5 Ml Syringe) 0.5 mg IV Q2HP PRN; Protocol PRN Reason: Per Pain Protocol Last Admin: 08/01/21 12:47 Dose: 0.5 mg Documented by: Insulin Glargine (Insulin Glargine, Human 1 Unit/0.01 Ml) 10 unit SQ BID [facility] Last Admin: 08/01/21 08:22 Dose: 10 units Documented by: Insulin Human Lispro (Insulin Lispro 1 Unit/0.01 Ml Unit) 0 unit SQ ACHS [facility]; Protocol Last Admin: 08/01/21 11:29 Dose: 4 units Documented by: Magnesium Oxide (Magnesium Oxide 400 Mg Tablet) 400 mg PO TID [facility] Last Admin: 08/01/21 15:12 Dose: 400 mg Documented by: Naloxone HCl (Naloxone Hcl 0.4 Mg/Ml Vial) 0.1 mg IV Q2MIN PRN PRN Reason: Opiate Reversal Nitrofurantoin Macrocrystals (Nitrofurantoin Sr 100 Mg Capsule) 100 mg PO BID [facility] Last Admin: 08/01/21 15:12 Dose: 100 mg Documented by: Omeprazole (Omeprazole 20 Mg Capsule) 20 mg PO ACB [facility] Last Admin: 08/01/21 07:17 Dose: 20 mg Documented by: Ondansetron HCl (Ondansetron 4 Mg/2 Ml Vial) 4 mg IV Q6HP PRN PRN Reason: Nausea And Vomiting Ondansetron HCl (Ondansetron 4 Mg/2 Ml Vial) 4 mg IV Q4HP PRN; Protocol PRN Reason: Nausea And Vomiting Polyethylene Glycol (Polyethylene Glycol 3350 17 Gm Packet) 17 gm PO DAILY [facility] Last Admin: 08/01/21 08:23 Dose: 17 gm Documented by: Potassium Chloride (Potassium Chloride 20 Meq Tablet) 20 meq PO DAILY [facility] Last Admin: 08/01/21 09:47 Dose: Not Given Documented by: Senna (Sennosides 1 Tablet) 2 tab PO HS [facility] Last Admin: 07/31/21 20:25 Dose: 2 tab Documented by: Sodium Chloride (0.9 % Sodium Chloride 10 Ml Syringe) 10 ml IV Q8 [facility] Last Admin: 08/01/21 12:48 Dose: 10 ml Documented by: Tamsulosin HCl (Tamsulosin 0.4 Mg Capsule) 0.[address] [facility] Last Admin: 07/31/21 20:25 Dose: 0.4 mg Documented by: Throat Lozenges (Benzocaine/Menthol 1 Lozenge) 1 lozenge PO PRN PRN PRN Reason: Sore Throat Trazodone HCl (Trazodone Hcl 150 Mg Tablet) [address] [facility] Last Admin: 07/31/21 20:25 Dose: 150 mg Documented by: A/P Narrative A/P Narrative: Postop day 1 right hip fracture treated with IM nail. Patient is doing well overall but with some pain on attempted ambulation as expected. Continue current management. Discharge planning as per hospital team. Patient should remain 50% weightbearing Prescription for pain medication and aspirin for anticoagulation was provided to the patient. Follow-up with orthopedics in 2 weeks time for wound check and staple removal. Ortho will sign off for now. Please call Dr. Gusman if any questions or concer ns. Time Spent With Patient Time: Total time spent is greater than 50% in coordination of care (as documented) at patient's floor/unit and/or counseling patient:
[2021-08-01] MEDS: TAMSULOSIN 0.4 MG CAPSULE PO SCH (21:40)
[2021-08-01] MEDS: SENNOSIDES 1 TABLET PO SCH (21:41)
[2021-08-01] MEDS: BISACODYL 10 MG SUPP.RECT PR SCH (21:42)
[2021-08-01] MEDS: traZODone HCL 150 MG TABLET PO SCH (21:42)
[2021-08-02] MEDS: HYDROcodone/APAP 5/325MG TABLET PO PRN ×4 (04:33→20:34)
[2021-08-02] MEDS: 0.9 % SODIUM CHLORIDE 10 ML SYRINGE IV SCH ×3 (04:34→21:17)
[2021-08-02 07:38] LABS: Hematocrit 27.8 % (34.1-44.9); Hemoglobin 8.9 g/dL (11.2-15.7)
[2021-08-02 08:07] LABS: INR 0.8 (0.9-1.1); Prothrombin Time 11.6 sec (11.9-14.5)
[2021-08-02] MEDS: INSULIN LISPRO 1 UNIT/0.01 ML UNIT SQ SCH ×4 (08:28→21:17)
[2021-08-02] MEDS: ENOXAPARIN 30 MG/0.3 ML SYRINGE SQ SCH ×2 (08:52→20:36)
[2021-08-02] MEDS: POTASSIUM CHLORIDE 20 MEQ TABLET PO SCH (08:53)
[2021-08-02] MEDS: INSULIN GLARGINE, HUMAN 1 UNIT/0.01 ML SQ SCH ×2 (08:53→21:20)
[2021-08-02] MEDS: OMEPRAZOLE 20 MG CAPSULE PO SCH (08:53)
[2021-08-02] MEDS: DULoxetine 30 MG CAPSULE PO SCH (08:53)
[2021-08-02] MEDS: DOCUSATE SODIUM 100 MG CAPSULE PO SCH ×2 (08:53→20:36)
[2021-08-02] MEDS: NITROFURANTOIN SR 100 MG CAPSULE PO SCH ×2 (08:54→20:36)
[2021-08-02] MEDS: POLYETHYLENE GLYCOL 3350 17 GM PACKET PO SCH (08:54)
[2021-08-02] MEDS: MAGNESIUM OXIDE 400 MG TABLET PO SCH ×3 (08:54→20:38)
[2021-08-02] MEDS: TAMSULOSIN 0.4 MG CAPSULE PO SCH (20:37)
[2021-08-02] MEDS: traZODone HCL 150 MG TABLET PO SCH (20:38)
[2021-08-02] MEDS: BISACODYL 10 MG SUPP.RECT PR SCH (20:38)
[2021-08-02] MEDS: SENNOSIDES 1 TABLET PO SCH (20:39)
[2021-08-03] MEDS: HYDROcodone/APAP 5/325MG TABLET PO PRN ×2 (00:28→08:38)
[2021-08-03] MEDS: 0.9 % SODIUM CHLORIDE 10 ML SYRINGE IV SCH (05:37)
[2021-08-03 07:47] LABS: Hematocrit 26.5 % (34.1-44.9); Hemoglobin 8.7 g/dL (11.2-15.7)
[2021-08-03] MEDS: INSULIN LISPRO 1 UNIT/0.01 ML UNIT SQ SCH (07:54)
[2021-08-03 08:30] LABS: INR 0.9 (0.9-1.1); Prothrombin Time 12.1 sec (11.9-14.5)
[2021-08-03] MEDS: POLYETHYLENE GLYCOL 3350 17 GM PACKET PO SCH (08:37)
[2021-08-03] MEDS: ENOXAPARIN 30 MG/0.3 ML SYRINGE SQ SCH (08:37)
[2021-08-03] MEDS: POTASSIUM CHLORIDE 20 MEQ TABLET PO SCH ×2 (08:38→08:43)
[2021-08-03] MEDS: DOCUSATE SODIUM 100 MG CAPSULE PO SCH (08:38)
[2021-08-03] MEDS: DULoxetine 30 MG CAPSULE PO SCH (08:38)
[2021-08-03] MEDS: NITROFURANTOIN SR 100 MG CAPSULE PO SCH (08:38)
[2021-08-03] MEDS: OMEPRAZOLE 20 MG CAPSULE PO SCH (08:38)
[2021-08-03] MEDS: MAGNESIUM OXIDE 400 MG TABLET PO SCH (08:39)
[2021-08-03] MEDS: INSULIN GLARGINE, HUMAN 1 UNIT/0.01 ML SQ SCH (10:16)
[2021-08-03] MEDS: HYDROmorphone 0.5 MG/0.5 ML SYRINGE IV PRN (10:17)
== END 2021-08-03 11:40 ==
LOC: ED 09:32 → MEDSUR 13:46
PROVIDERS: ADMIT Internal Medicine; ATTEND Internal Medicine

== ENCOUNTER 2021-12-06 02:27 | Inpatient (IN) ==
[2021-12-06] MEDS ORDERED: ONDANSETRON 4 MG/2 ML VIAL IV ONE (02:47)
[2021-12-06] MEDS ORDERED: LACTATED RINGERS 1,000 ML IV ONE ×2 (02:47→05:29)
--- NOTE | 2021-12-06 02:53 | Emergency Department Note ---
HPI General Chief complaint: Blood Sugar Problem Stated complaint: high blood sugar Time Seen by Provider: 12/06/21 02:47 Mode of arrival: EMS History of Present Illness HPI Narrative: Narrative: 81-year-old female DNR, history of diabetes insulin-dependent, GERD, CKD, dementia ANO x1 at baseline [facility] vomiting and hyperglycemia on and off for the past 1 week. Facility worried about DKA, possible UTI they have been given her some Rocephin for suspected UTI but apparently the culture came back negative. Most history is obtained from the daughter Donato LAROSE, who reports her mother has been waxing and waning, they were trying to treat her at the [facility] with insulin but has become more difficult. Unsure if her mother has had a history of DKA. No reports of fever, has had nausea vomiting and she has some baseline dysphagia, possible aspiration. Does have some suprapubic discomfort, unsure if any urinary symptoms. Patient is DNR confirmed with paperwork at bedside Related Data Home Medications Medication Instructions Recorded Confirmed acetaminophen 325 mg tablet 325 mg PO Q4HP PRN 11/04/15 07/30/21 (Tylenol) alendronate 70 mg tablet (Fosamax) 70 mg PO WEEKLY 11/04/15 07/30/21 cholecalciferol (vitamin D3) 25 1,000 unit PO DAILY 11/04/15 07/30/21 mcg (1,000 unit) capsule (Vitamin D3) diphenhydramine HCl 25 mg capsule 25 mg PO Q4HP PRN 11/04/15 07/30/21 duloxetine 30 mg capsule,delayed 30 mg PO DAILY 11/04/15 07/30/21 release (Cymbalta) hydrocodone 10 mg-acetaminophen 1 tab PO Q4H PRN 11/04/15 12/06/21 325 mg tablet insulin aspart U-100 100 unit/mL See Rx Instructions .ROUTE .COMPLEX 11/04/15 12/06/21 (3 mL) subcutaneous pen (Novolog Flexpen U-100 Insulin aspart) insulin glargine 100 unit/mL (3 30 unit SQ QHS 11/04/15 12/06/21 mL) subcutaneous pen (Lantus Solostar U-100 Insulin) magnesium oxide 400 mg (241.3 mg 400 mg PO TID 11/04/15 07/30/21 magnesium) tablet (MagOx) metformin 500 mg tablet 500 mg PO DAILY 11/04/15 07/30/21 (Glucophage) omeprazole 20 mg capsule,delayed 20 mg PO ACB 11/04/15 07/30/21 release polyethylene glycol 3350 17 gram 17 gm PO DAILY 11/04/15 12/06/21 oral powder packet (Miralax) benzonatate 100 mg capsule 100 mg PO TID PRN 07/30/21 07/30/21 bisacodyl 10 mg rectal suppository 10 mg ND HS 07/30/21 12/06/21 (Dulcolax (bisacodyl)) citalopram 10 mg tablet 20 mg PO QDAY 07/30/21 12/06/21 insulin aspart U-100 100 unit/mL See Rx Instructions .ROUTE .COMPLEX 07/30/21 12/06/21 (3 mL) subcutaneous pen (Novolog Flexpen U-100 Insulin aspart) methenamine hippurate 1 gram tablet 1 g PO BID 07/30/21 12/06/21 tamsulosin 0.4 mg capsule 0.4 mg PO HS 07/30/21 12/06/21 trazodone 150 mg tablet 150 mg PO HS 07/30/21 12/06/21 melatonin 5 mg tablet 5 mg PO HS 12/06/21 12/06/21 multivitamin with minerals-folic 1 tab PO DAILY 12/06/21 12/06/21 acid 0.4 mg tablet Previous Rx's Medication Instructions Recorded aspirin 81 mg tablet,delayed 81 mg PO BID #60 tab 07/31/21 release (Enteric Coated Aspirin) nitrofurantoin 100 mg PO BID #7 cap 08/01/21 monohydrate/macrocrystals 100 mg capsule (Macrobid) hydrocodone 5 mg-acetaminophen 325 1 - 2 tab PO Q4H PRN #60 tab 08/03/21 mg tablet Allergies Allergy/AdvReac Type Severity Reaction Status Date / Time NO KNOWN ALLERGIES Allergy Unknown NONE Uncoded 01/01/15 04:40 Review of Systems ROS ROS Narrative: Narrative: Full review of systems unobtainable from patient given baseline dementia and critical illness PFSH Narrative Patient History Narrative: Narrative: Medical/Surgical/Family History All Active Problems GERD (gastroesophageal reflux disease) (Acute) Osteoporosis (Acute) Dementia (Acute) Chronic kidney disease, stage 3 (Acute) Type 2 diabetes mellitus not at goal (Acute) Closed femur fracture (Acute) Medical History Chronic kidney disease, stage 3 Constipation Dementia Diabetic neuropathy Fecal impaction in rectum GERD (gastroesophageal reflux disease) Osteoporosis Type 2 diabetes mellitus not at goal Social History Smoking Status: Never smoker Alcohol Intake Frequency: does not drink Exam Narrative Narrative: Narrative: Constitutional: normally developed, overall very ill-appearing frail Head: Normocephalic, atraumatic, Eyes: No Icterus, ENT: Dry mucus membranes, vomitus dried around her mouth Neck: Supple, Cardiac: Normal heart sounds, palpable radial pulses, no peripheral edema Pulmonary: [place] respirations. Breath sounds coarse but no obvious wheeze, rhonchi, rales, Gastrointestinal: Abdomen soft, non-distended, non-tender, Musculoskeletal: No gross deformities, well perfused. Stage I decubitus Skin: warm, dry Neuro: Alert and oriented to self only, overall generalized weakness no obvious lateralizing findings Course Vital Signs Vital signs: Vital Signs Temperature 36.7 C 12/06/21 02:29 Pulse Rate 95 H 12/06/21 02:29 Respiratory Rate 17 12/06/21 02:29 Blood Pressure 101/36 12/06/21 02:29 Pulse Oximetry (%) 99 12/06/21 02:29 Temperature 36.7 C 12/06/21 02:29 Pulse Rate 112 H 12/06/21 05:56 Respiratory Rate 17 12/06/21 02:29 Blood Pressure 112/39 12/06/21 05:01 Pulse Oximetry (%) 98 12/06/21 05:56 [facility] MDM Narrative Medical decision making narrative: Narrative: 81-year-old sent in for hyperglycemia Accu-Chek here reads high she is started on IV fluids broad laboratory work-up is initiated concern most for DKA, metabolic derangements. Also concern for infection such as possible aspiration/pneumonia or UTI. Patient is DNR. Twelve-lead EKG sinus tachycardia 121, prolonged QTC of 540, does have peaked T wave appearance with a possible right bundle branch block pattern, no STEMI criteria. I am concerned for possible electrolyte/hyperkalemic changes While labs are pending given possible hyperkalemic changes on EKG she was given 1 g calcium gluconate VBG does show a metabolic acidosis pH 7.13 CO2 31, bicarb 10.3, lactate 3.5. There was a delay in receiving electrolytes as initial sample was hemolyzed. Chem-8 shows normal hematocrit, does show a hyperglycemia greater than 700 with a bicarb of 8 pseudohyponatremia 125 hyperkalemia 5.6 Creatinine 1.2 LFTs within normal bilirubin normal Presentation is consistent with DKA is started on insulin drip is given a second IV bolus, will give her 40 of Lasix as well for the hyperkalemia has already received a dose of calcium. Beta hydroxybutyrate 8.7 Lipase mildly elevated 168 BMP did finally result does show a anion gap metabolic acidosis anion gap of 33 bicarb 10 glucose 841 0640: Spoke with hospitalist who will be down to admit the patient. Also repeated twelve-lead EKG remained sinus rhythm heart rate 112, previous peak T waves appear improved, prolonged QTC is resolved now 482. Critical Care Time Total CriticalCare time was more than 45 minutes, excluding separately reportable procedures. There was a high probability of clinically significant/life threatening deterioration in the patient's condition which required my urgent intervention. Lab Data Result diagrams: 12/06/21 03:05 12/06/21 03:05 Labs: Lab Results 12/06/21 12/06/21 12/06/21 Range/Units 03:05 03:05 03:05 WBC 10.0 (4.5-11.0) K/mcL RBC 4.42 (3.59-5.38) M/mcL Hgb 12.4 (11.2-15.7) g/dL Hct 41.1 (34.1-44.9) % POC Hct (36-48) MCV 93.0 (80.0-100.0) fL MCH 28.1 (26.0-34.0) pg MCHC 30.2 L (31.0-36.0) g/dL RDW 17.4 H (11.5-14.5) % Plt Count 240 (140-440) K/mcL MPV 11.5 H (7.4-10.4) fL Neut % (Auto) 78.9 H (38.0-78.0) % Lymph % (Auto) 16.9 (15.5-49.0) % [place] % (Auto) 3.8 (1.0-12.0) % Eos % (Auto) 0.1 (0.0-7.0) % Baso % (Auto) 0.3 (0.0-2.0) % Lymph # (Auto) 1.69 (1.50-4.80) K/mcL [place] # (Auto) 0.38 (0.10-0.90) K/mcL Eos # (Auto) 0.01 (0.00-0.70) K/mcL Baso # (Auto) 0.03 (0.00-0.30) K/mcL Absolute Neutrophils 7.89 (1.80-8.00) K/mcL POC Sodium (133-145) Sodium 127 L (133-145) mmol/L POC Potassium (3.3-5.1) Potassium 5.4 H (3.3-5.1) mmol/L POC Chloride (96-108) Chloride 84 L (96-108) mmol/L Carbon Dioxide 10 L* (22-30) mmol/L POC Total CO2 (22-30) Anion Gap 33.0 H (8.0-16.0) POC BUN (6-20) BUN 37 H (8-23) mg/dL Creatinine 1.4 H (0.6-1.1) mg/dL POC Creatinine (0.6-1.2) GFR Calculation 34 Glucose 841 H* (70-105) mg/dL POC Glucose (70-105) Calcium 9.9 (8.6-10.4) mg/dL POC WB Ioniz Calcium (1.16-1.32) Magnesium (1.6-2.5) mg/dL Total Bilirubin 0.4 (0.1-1.0) mg/dL Direct Bilirubin (<0.3) mg/dL AST 16 (<32) U/L ALT 13 (<40) U/L Alkaline Phosphatase 122 H (39-117) U/L Total Protein 6.9 (5.9-8.4) gm/dL Albumin 3.7 (3.2-5.2) gm/dL Globulin 3.2 (2.2-3.7) gm/dL Albumin/Globulin Ratio 1.2 (1.0-2.3) Lipase 168 H (7-60) U/L Beta-Hydroxybutyrate 8.72 H (<0.27) mmol/L Urine Color Urine Appearance (Clear) Urine pH (5.0-9.0) Ur Specific [place] (1.000-1.035) Urine Protein (Negative) mg/dL Urine Glucose (UA) (Negative) mg/dL Urine Ketones (Negative) mg/dL Urine Occult Blood (Negative) mg/dL Urine Nitrate (Negative) Urine Bilirubin (Negative) mg/dL Urine Urobilinogen mg/dL Ur Leukocyte Esterase (Negative) /uL Urine RBC (0-3) /hpf Urine WBC (0-4) /hpf Ur Squamous Epith Cells (0-4) /hpf Urine Bacteria (0) /hpf Hyaline Casts (0-2) /lph Urine Mucus (None) /hpf Ur Culture Indicated? POC Troponin I (0.02-0.08) 12/06/21 12/06/21 12/06/21 Range/Units 03:05 03:11 05:21 WBC (4.5-11.0) K/mcL RBC (3.59-5.38) M/mcL Hgb (11.2-15.7) g/dL Hct (34.1-44.9) % POC Hct 36.0 (36-48) MCV (80.0-100.0) fL MCH (26.0-34.0) pg MCHC (31.0-36.0) g/dL RDW (11.5-14.5) % Plt Count (140-440) K/mcL MPV (7.4-10.4) fL Neut % (Auto) (38.0-78.0) % Lymph % (Auto) (15.5-49.0) % [place] % (Auto) (1.0-12.0) % Eos % (Auto) (0.0-7.0) % Baso % (Auto) (0.0-2.0) % Lymph # (Auto) (1.50-4.80) K/mcL [place] # (Auto) (0.10-0.90) K/mcL Eos # (Auto) (0.00-0.70) K/mcL Baso # (Auto) (0.00-0.30) K/mcL Absolute Neutrophils (1.80-8.00) K/mcL POC Sodium 125 L (133-145) Sodium (133-145) mmol/L POC Potassium 5.6 H (3.3-5.1) Potassium (3.3-5.1) mmol/L POC Chloride 101 (96-108) Chloride (96-108) mmol/L Carbon Dioxide (22-30) mmol/L POC Total CO2 8.0 L* (22-30) Anion Gap (8.0-16.0) POC BUN 45 H (6-20) BUN (8-23) mg/dL Creatinine (0.6-1.1) mg/dL POC Creatinine 1.2 (0.6-1.2) GFR Calculation Glucose (70-105) mg/dL POC Glucose > 700 H* (70-105) Calcium (8.6-10.4) mg/dL POC WB Ioniz Calcium 0.99 L (1.16-1.32) Magnesium (1.6-2.5) mg/dL Total Bilirubin 0.4 (0.1-1.0) mg/dL Direct Bilirubin 0.2 (<0.3) mg/dL AST 18 (<32) U/L ALT 14 (<40) U/L Alkaline Phosphatase 130 H (39-117) U/L Total Protein 6.4 (5.9-8.4) gm/dL Albumin 4.1 (3.2-5.2) gm/dL Globulin 2.3 (2.2-3.7) gm/dL Albumin/Globulin Ratio (1.0-2.3) Lipase (7-60) U/L Beta-Hydroxybutyrate (<0.27) mmol/L Urine Color Urine Appearance (Clear) Urine pH (5.0-9.0) Ur Specific [place] (1.000-1.035) Urine Protein (Negative) mg/dL Urine Glucose (UA) (Negative) mg/dL Urine Ketones (Negative) mg/dL Urine Occult Blood (Negative) mg/dL Urine Nitrate (Negative) Urine Bilirubin (Negative) mg/dL Urine Urobilinogen mg/dL Ur Leukocyte Esterase (Negative) /uL Urine RBC (0-3) /hpf Urine WBC (0-4) /hpf Ur Squamous Epith Cells (0-4) /hpf Urine Bacteria (0) /hpf Hyaline Casts (0-2) /lph Urine Mucus (None) /hpf Ur Culture Indicated? POC Troponin I 0.04 (0.02-0.08) 12/06/21 12/06/21 Range/Units 05:51 06:08 WBC (4.5-11.0) K/mcL RBC (3.59-5.38) M/mcL Hgb (11.2-15.7) g/dL Hct (34.1-44.9) % POC Hct (36-48) MCV (80.0-100.0) fL MCH (26.0-34.0) pg MCHC (31.0-36.0) g/dL RDW (11.5-14.5) % Plt Count (140-440) K/mcL MPV (7.4-10.4) fL Neut % (Auto) (38.0-78.0) % Lymph % (Auto) (15.5-49.0) % [place] % (Auto) (1.0-12.0) % Eos % (Auto) (0.0-7.0) % Baso % (Auto) (0.0-2.0) % Lymph # (Auto) (1.50-4.80) K/mcL [place] # (Auto) (0.10-0.90) K/mcL Eos # (Auto) (0.00-0.70) K/mcL Baso # (Auto) (0.00-0.30) K/mcL Absolute Neutrophils (1.80-8.00) K/mcL POC Sodium (133-145) Sodium (133-145) mmol/L POC Potassium (3.3-5.1) Potassium (3.3-5.1) mmol/L POC Chloride (96-108) Chloride (96-108) mmol/L Carbon Dioxide (22-30) mmol/L POC Total CO2 (22-30) Anion Gap (8.0-16.0) POC BUN (6-20) BUN (8-23) mg/dL Creatinine (0.6-1.1) mg/dL POC Creatinine (0.6-1.2) GFR Calculation Glucose (70-105) mg/dL POC Glucose (70-105) Calcium (8.6-10.4) mg/dL POC WB Ioniz Calcium (1.16-1.32) Magnesium 2.0 (1.6-2.5) mg/dL Total Bilirubin (0.1-1.0) mg/dL Direct Bilirubin (<0.3) mg/dL AST (<32) U/L ALT (<40) U/L Alkaline Phosphatase (39-117) U/L Total Protein (5.9-8.4) gm/dL Albumin (3.2-5.2) gm/dL Globulin (2.2-3.7) gm/dL Albumin/Globulin Ratio (1.0-2.3) Lipase (7-60) U/L Beta-Hydroxybutyrate (<0.27) mmol/L Urine Color Yellow Urine Appearance Hazy A (Clear) Urine pH 5.0 (5.0-9.0) Ur Specific [place] 1.021 (1.000-1.035) Urine Protein Negative (Negative) mg/dL Urine Glucose (UA) >=500 A (Negative) mg/dL Urine Ketones 80 A (Negative) mg/dL Urine Occult Blood Negative (Negative) mg/dL Urine Nitrate Negative (Negative) Urine Bilirubin Negative (Negative) mg/dL Urine Urobilinogen Negative mg/dL Ur Leukocyte Esterase Negative (Negative) /uL Urine RBC 0 (0-3) /hpf Urine WBC 2 (0-4) /hpf Ur Squamous Epith Cells 1 (0-4) /hpf Urine Bacteria None (0) /hpf Hyaline Casts 5 H (0-2) /lph Urine Mucus Few A (None) /hpf Ur Culture Indicated? No POC Troponin I (0.02-0.08) ED POC Tests ED POC Tests: ROBERT - Influenza A Negative ROBERT - Influenza B Negative ROBERT - SARS Antigen Negative Discharge Plan Patient/Caregiver Discharge Instructions Pt seen by COSMETICIAN/PA only: No Patient Disposition: Xfer As Inpt ([facility]) Condition: Critical Follow up with: Avila Renner DO [Primary Care Provider] - Prescriptions: No Action metformin [Glucophage] 500 MG tablet 500 mg PO DAILY 0RF acetaminophen [Tylenol] 325 MG tablet 325 mg PO Q4HP PRN (Reason: Pain) 0RF polyethylene glycol 3350 [Miralax] 17 GM powder in packet 17 gm PO DAILY 0RF alendronate [Fosamax] 70 MG tablet 70 mg PO WEEKLY 0RF Rx Instructions: Takes on Sun hydrocodone-acetaminophen 1 TAB tablet 1 tab PO Q4H PRN (Reason: Pain) 0RF magnesium oxide [MagOx] 400 MG tablet 400 mg PO TID 0RF diphenhydramine HCl 25 MG capsule 25 mg PO Q4HP PRN (Reason: Allergic Symptoms) 0RF omeprazole 20 MG capsule,delayed release(DR/EC) 20 mg PO ACB 0RF cholecalciferol (vitamin D3) [Vitamin D3] 1,000 UNIT capsule 1,000 unit PO DAILY 0RF insulin aspart U-100 [Novolog Flexpen U-100 Insulin] 100 UNIT/ML insulin pen See Rx Instructions .ROUTE .COMPLEX 0RF Rx Instructions: Inject 8 units SQ every 30 minutes as needed for hyperglycemia related to Type II Diabetes duloxetine [Cymbalta] 30 MG capsule,delayed release(DR/EC) 30 mg PO DAILY 0RF Lantus Solostar U-100 Insulin 100 UNIT/ML insulin pen 30 unit SQ QHS 0RF citalopram 10 mg Tablet 20 mg PO QDAY 0RF methenamine hippurate 1 gram tablet 1 g PO BID 0RF tamsulosin 0.4 mg capsule 0.4 mg PO HS 0RF benzonatate 100 mg Capsule 100 mg PO TID PRN (Reason: Cough) 0RF bisacodyl [Dulcolax (bisacodyl)] 10 mg suppository 10 mg ND HS 0RF Label Comments: prn trazodone 150 mg tablet 150 mg PO HS 0RF insulin aspart U-100 [Novolog Flexpen U-100 Insulin] 100 unit/mL (3 mL) insulin pen See Rx Instructions .ROUTE .COMPLEX 0RF Rx Instructions: Inject as per sliding scale: if 0-70 =0 Notify PCP immediately and start facility hypoglycemic protocol for blood glucose <70.; 140-180= 2 units; 181-240= 3 Units; 241-300= 4 Units; 301-350= 6 Units; 351- 400 = 8 Units; 401+ = 10 Units; Call PCP if BS is >500 aspirin [Enteric Coated Aspirin] 81 mg tablet,delayed release (DR/EC) 81 mg PO BID Qty: 60 0RF nitrofurantoin monohyd/m-cryst [Macrobid] 100 mg capsule 100 mg PO BID Qty: 7 0RF Rx Instructions: must administer with a meal/food hydrocodone-acetaminophen 5-325 mg Tablet 1 - 2 tab PO Q4H PRN (Reason: Pain) Qty: 60 0RF multivit with min-folic acid [Adult One Daily Multivitamin] 0.4 mg Tablet 1 tab PO DAILY 0RF melatonin 5 mg Tablet 5 mg PO HS 0RF
[2021-12-06] MEDS ORDERED: CALCIUM GLUCONATE 7 MEQ in DEXTROSE 5% IN WATER 50 ML IV ONE (03:13)
[2021-12-06 03:55] LABS: Basophils # (Auto) 0.03 K/mcL (0.00-0.30); Basophils % (Auto) 0.3 % (0.0-2.0); Eosinophils # (Auto) 0.01 K/mcL (0.00-0.70); Eosinophils % (Auto) 0.1 % (0.0-7.0); Hematocrit 41.1 % (34.1-44.9); Hemoglobin 12.4 g/dL (11.2-15.7); Lymphocytes # (Auto) 1.69 K/mcL (1.50-4.80); Lymphocytes % (Auto) 16.9 % (15.5-49.0); Mean Corpuscular HGB Conc 30.2 g/dL (31.0-36.0); Mean Platelet Volume 11.5 fL (7.4-10.4); Monocytes # (Auto) 0.38 K/mcL (0.10-0.90); Monocytes % (Auto) 3.8 % (1.0-12.0); Neutrophils % (Auto) 78.9 % (38.0-78.0); Platelet Count 240 K/mcL (140-440); RBC 4.42 M/mcL (3.59-5.38); Red Cell Distribution Width 17.4 % (11.5-14.5)
[2021-12-06] MEDS ORDERED: INSULIN REGULAR, HUMAN 50 UNIT in 0.9 % SODIUM CHLORIDE 99.5 ML IV SCH ×2 (04:00→12:30)
[2021-12-06 04:44] LABS: Beta Hydroxybutyrate 8.72 mmol/L (<0.27)
[2021-12-06 05:26] LABS: POC Blood Urea Nitrogen 45 (6-20); POC Calcium, Ionized 0.99 (1.16-1.32); POC Chloride 101 (96-108); POC Creatinine 1.2 (0.6-1.2); POC Glucose, Random > 700 (70-105); POC Potassium 5.6 (3.3-5.1); POC Sodium 125 (133-145)
[2021-12-06] MEDS ORDERED: FUROSEMIDE 40 MG/4 ML VIAL IV ONE (05:28)
[2021-12-06 05:47] LABS: Albumin 4.1 gm/dL (3.2-5.2); Bilirubin,Direct 0.2 mg/dL (<0.3); Bilirubin,Total 0.4 mg/dL (0.1-1.0); Globulin 2.3 gm/dL (2.2-3.7)
[2021-12-06] MEDS ORDERED: 0.9 % SODIUM CHLORIDE 1,000 ML IV ONE (05:54)
[2021-12-06 05:55] LABS: ALT/SGPT 13 U/L (<40); AST/SGOT 16 U/L (<32); Albumin 3.7 gm/dL (3.2-5.2); Albumin/Globulin Ratio 1.2 (1.0-2.3); Alkaline Phosphatase 122 U/L (39-117); Bilirubin,Total 0.4 mg/dL (0.1-1.0); Blood Urea Nitrogen 37 mg/dL (8-23); Calcium 9.9 mg/dL (8.6-10.4); Carbon Dioxide 10 mmol/L (22-30); Chloride 84 mmol/L (96-108); Globulin 3.2 gm/dL (2.2-3.7); Glomerular Filtration Rate 34; Glucose 841 mg/dL (70-105)
[2021-12-06 06:53] LABS: Appearance,Urine HAZY (Clear); Bilirubin,Urine Negative (Negative); Color,Urine YELLOW; Culture Indicated,Urine No; Glucose,Urine (UA) >=500 mg/dL (Negative); Ketones,Urine 80 mg/dL (Negative); Leukocyte Esterase,Urine Negative /uL (Negative); Mucus,Urine FEW /hpf; Nitrate,Urine Negative (Negative); Protein,Urine Negative (Negative); Specific Gravity,Urine 1.021 (1.000-1.035); Urine Blood Negative (Negative); Urine Hyaline Cast 5 /lph (0-2); Urine RBC 0 /hpf (0-3); Urine Squamous Epithelial Cell 1 /hpf (0-4); Urine WBC 2 /hpf (0-4); Urobilinogen,Urine Negative
[2021-12-06] MEDS ORDERED: SENNOSIDES 1 TABLET PO PRN (07:14)
[2021-12-06] MEDS ORDERED: ONDANSETRON 4 MG/2 ML VIAL IV PRN (07:14)
--- NOTE | 2021-12-06 07:37 | XRay Report ---
HISTORY: Increasing weakness, hyperglycemia, possible aspiration FINDINGS: Interstitial lung markings are mildly prominent bilaterally. Lung volumes are normal. There is no evidence of consolidation, mass or aspiration. The heart size and pulmonary vasculature are normal. Aorta is mildly tortuous. There is an old fracture in the left humeral neck. Comparison with the prior x-ray done on 07/30/21 shows little change. IMPRESSION: Subtle interstitial fibrosis and no acute abnormality Interpreted and Authenticated by: Laith Lee 12/06/21
[2021-12-06 07:59] LABS: POC Blood Urea Nitrogen 37 (6-20); POC Chloride 100 (96-108); POC Creatinine 1.3 (0.6-1.2); POC Glucose, Random > 700 (70-105); POC Potassium 4.6 (3.3-5.1); POC Sodium 131 (133-145)
[2021-12-06] MEDS ORDERED: INSULIN REGULAR, HUMAN 1 UNIT/0.01 ML UNIT IV ONE ×2 (07:59→09:01)
[2021-12-06] MEDS: 0.9 % SODIUM CHLORIDE 1,000 ML IV SCH ×4 (08:24→22:40)
--- NOTE | 2021-12-06 08:27 | Internal Med History&Physical ---
HPI History of Present Illness Patient information: Note initiated : 12/06/21 at 8:23 am Service Date, if different from initiated Date: [] Patient: Janay Kraft a 81 y/o F admitted on 12/06/21 for High Blood Sugar. Chief Complaint: [] Chief complaint: ALOC History of present illness: Ms. Kraft is a 81 year old F with a past medical history significant for insulin-dependent diabetes, dementia, CKD stage III, and osteoporosis who presents to the hospital from her [facility] facility in the setting of encephalopathy and hyperglycemia. The nursing facility was struggling to manage her high blood sugars for the past week. She was suspected to have a urinary tract infection and was treated with Rocephin. She was given IV fluids at the nursing facility as well. Unfortunately, her blood sugars were significantly elevated and she was on low-dose insulin sliding scale and was getting 15 to 30 units of Lantus which was inadequate. She presents to the hospital encephalopathic today with dry mucous membranes. She has significant electrolyte derangements, and anion gap metabolic acidosis. The patient's blood gas reveals a pH of 7.15, PCO2 of 21, and bicarb of 8. The patient's blood sugar was 847, anion gap was 37, and creatinine was 1.4. The patient's lactic acid was 4.3. She had a beta hydroxybutyrate level of 8.72 and her urine was positive for ketones. The hospital service was asked to admit the patient for further management and evaluation of her diabetic ketoacidosis. Review of Systems ROS unobtainable: due to mental status PFSH PFSH All Active Problems (Updated 12/06/21 @ 08:29 by Bruno Barraza MD) CHATO (acute kidney injury) (Acute) Hyponatremia (Acute) High anion gap metabolic acidosis (Acute) DKA (diabetic ketoacidosis) (Acute) Toxic metabolic encephalopathy (Acute) GERD (gastroesophageal reflux disease) (Acute) Osteoporosis (Acute) Dementia (Acute) Chronic kidney disease, stage 3 (Acute) Type 2 diabetes mellitus not at goal (Acute) Closed femur fracture (Acute) Medical History Chronic kidney disease, stage 3 Constipation Dementia Diabetic neuropathy Fecal impaction in rectum GERD (gastroesophageal reflux disease) Osteoporosis Type 2 diabetes mellitus not at goal Social History alcohol intake frequency: does not drink MEDS/ALLERGIES Home Medications and Allergies Home Medications Medication Instructions Recorded Confirmed Type acetaminophen 325 mg tablet 325 mg PO Q4HP PRN 11/04/15 07/30/21 History (Tylenol) alendronate 70 mg tablet (Fosamax) 70 mg PO WEEKLY 11/04/15 07/30/21 History cholecalciferol (vitamin D3) 25 1,000 unit PO DAILY 11/04/15 07/30/21 History mcg (1,000 unit) capsule (Vitamin D3) diphenhydramine HCl 25 mg capsule 25 mg PO Q4HP PRN 11/04/15 07/30/21 History duloxetine 30 mg capsule,delayed 30 mg PO DAILY 11/04/15 07/30/21 History release (Cymbalta) hydrocodone 10 mg-acetaminophen 1 tab PO Q4H PRN 11/04/15 12/06/21 History 325 mg tablet insulin aspart U-100 100 unit/mL See Rx Instructions .ROUTE .COMPLEX 11/04/15 0 12/06/21 History (3 mL) subcutaneous pen (Novolog Flexpen U-100 Insulin aspart) insulin glargine 100 unit/mL (3 30 unit SQ QHS 11/04/15 12/06/21 History mL) subcutaneous pen (Lantus Solostar U-100 Insulin) magnesium oxide 400 mg (241.3 mg 400 mg PO TID 11/04/15 07/30/21 History magnesium) tablet (MagOx) metformin 500 mg tablet 500 mg PO DAILY 11/04/15 07/30/21 History (Glucophage) omeprazole 20 mg capsule,delayed 20 mg PO ACB 11/04/15 07/30/21 History release polyethylene glycol 3350 17 gram 17 gm PO DAILY 11/04/15 12/06/21 History oral powder packet (Miralax) benzonatate 100 mg capsule 100 mg PO TID PRN 07/30/21 07/30/21 History bisacodyl 10 mg rectal suppository 10 mg [place] HS 07/30/21 12/06/21 History (Dulcolax (bisacodyl)) citalopram 10 mg tablet 20 mg PO QDAY 07/30/21 12/06/21 History insulin aspart U-100 100 unit/mL See Rx Instructions .ROUTE .COMPLEX 07/30/21 12/06/21 History (3 mL) subcutaneous pen (Novolog Flexpen U-100 Insulin aspart) methenamine hippurate 1 gram tablet 1 g PO BID 07/30/21 12/06/21 History tamsulosin 0.4 mg capsule 0.4 mg PO HS 07/30/21 12/06/21 History trazodone 150 mg tablet 150 mg PO HS 07/30/21 12/06/21 History aspirin 81 mg tablet,delayed 81 mg PO BID #60 tab 07/31/21 Rx release (Enteric Coated Aspirin) nitrofurantoin 100 mg PO BID #7 cap 08/01/21 Rx monohydrate/macrocrystals 100 mg capsule (Macrobid) hydrocodone 5 mg-acetaminophen 325 1 - 2 tab PO Q4H PRN #60 tab 08/03/21 Rx mg tablet melatonin 5 mg tablet 5 mg PO HS 12/06/21 12/06/21 History multivitamin with minerals-folic 1 tab PO DAILY 12/06/21 12/06/21 History acid 0.4 mg tablet Allergies Allergy/AdvReac Type Severity Reaction Status Date / Time NO KNOWN ALLERGIES Allergy Unknown NONE Uncoded 01/01/15 04:40 EXAM Constitutional Vitals: Temp Pulse Resp BP Pulse Ox 97.6 F 133 H 24 H 117/47 100 12/06/21 08:01 12/06/21 08:02 12/06/21 08:02 12/06/21 08:01 12/06/21 08:02 General appearance: average body habitus Head Head exam: Present atraumatic, normal inspection and normocephalic Eye Eye exam: Present EOMI, normal appearance and PERRL; Absent conjunctival injection ENT ENT exam: Present mucous membranes dry and normal exam Neck Neck exam: Present full ROM; Absent lymphadenopathy Respiratory Respiratory exam: Present normal respiratory exam and CTAB; Absent decreased breath sounds, respiratory distress or wheezes Cardiovascular Cardiovascular exam: Present RRR and tachycardia; Absent normal rate and rhythm or JVD GI/Abdominal GI/Abdominal exam: Present normal bowel sounds and soft; Absent diminished bowel sounds, distended, guarding, mass, rebound or tenderness Neurological Exam Neurological exam: Present altered; Absent alert or oriented X3 Psychiatric Psychiatric exam: Present normal affect and normal mood Skin Skin exam: Present intact and warm; Absent erythema, pallor, petechiae or rash DATA Data Completed and Pending Labs: Labs from last 24 hours 12/06/21 12/06/21 12/06/21 08:15 07:56 07:51 WBC RBC Hgb Hct POC Hct 40.0 MCV MCH MCHC RDW Plt Count MPV Neut % (Auto) Lymph % (Auto) [place] % (Auto) Eos % (Auto) Baso % (Auto) Lymph # (Auto) [place] # (Auto) Eos # (Auto) Baso # (Auto) Absolute Neutrophils POC pH 7.15 L* POC pCO2 21.5 L* POC pO2 83 POC HCO3 7.4 L POC ABG Base Excess -21.0 L Hgb O2 Saturation 93.0 L POC Sodium 131 L Sodium POC Potassium 4.6 Potassium POC Chloride 100 Chloride Carbon Dioxide POC Total CO2 8.0 L* 10.0 L Anion Gap POC BUN 37 H BUN Creatinine POC Creatinine 1.3 H GFR Calculation Glucose POC Glucose > 700 H* POC Arterial Lactate 4.3 H* Calcium POC WB Ioniz Calcium 1.30 Magnesium Pending Total Bilirubin Direct Bilirubin AST ALT Alkaline Phosphatase Total Protein Albumin Globulin Albumin/Globulin Ratio Lipase Beta-Hydroxybutyrate Urine Color Urine Appearance Urine pH Ur Specific Citra Urine Protein Urine Glucose (UA) Urine Ketones Urine Occult Blood Urine Nitrate Urine Bilirubin Urine Urobilinogen Ur Leukocyte Esterase Urine RBC Urine WBC Ur Squamous Epith Cells Urine Bacteria Hyaline Casts Urine Mucus Ur Culture Indicated? POC Troponin I 12/06/21 12/06/21 12/06/21 06:08 05:51 05:21 WBC RBC Hgb Hct POC Hct 36.0 MCV MCH MCHC RDW Plt Count MPV Neut % (Auto) Lymph % (Auto) [place] % (Auto) Eos % (Auto) Baso % (Auto) Lymph # (Auto) [place] # (Auto) Eos # (Auto) Baso # (Auto) Absolute Neutrophils POC pH POC pCO2 POC pO2 POC HCO3 POC ABG Base Excess Hgb O2 Saturation POC Sodium 125 L Sodium Pending POC Potassium 5.6 H Potassium Pending POC Chloride 101 Chloride Pending Carbon Dioxide Pending POC Total CO2 8.0 L* Anion Gap Pending POC BUN 45 H BUN Pending Creatinine Pending POC Creatinine 1.2 GFR Calculation Pending Glucose Pending POC Glucose > 700 H* POC Arterial Lactate Calcium Pending POC WB Ioniz Calcium 0.99 L Magnesium 2.0 Total Bilirubin Direct Bilirubin AST ALT Alkaline Phosphatase Total Protein Albumin Globulin Albumin/Globulin Ratio Lipase Beta-Hydroxybutyrate Urine Color Yellow Urine Appearance Hazy A Urine pH 5.0 Ur Specific Citra 1.021 Urine Protein Negative Urine Glucose (UA) >=500 A Urine Ketones 80 A Urine Occult Blood Negative Urine Nitrate Negative Urine Bilirubin Negative Urine Urobilinogen Negative Ur Leukocyte Esterase Negative Urine RBC 0 Urine WBC 2 Ur Squamous Epith Cells 1 Urine Bacteria None Hyaline Casts 5 H Urine Mucus Few A Ur Culture Indicated? No POC Troponin I 12/06/21 12/06/21 12/06/21 03:11 03:05 03:05 WBC RBC Hgb Hct POC Hct MCV MCH MCHC RDW Plt Count MPV Neut % (Auto) Lymph % (Auto) [place] % (Auto) Eos % (Auto) Baso % (Auto) Lymph # (Auto) [place] # (Auto) Eos # (Auto) Baso # (Auto) Absolute Neutrophils POC pH POC pCO2 POC pO2 POC HCO3 POC ABG Base Excess Hgb O2 Saturation POC Sodium Sodium POC Potassium Potassium POC Chloride Chloride Carbon Dioxide POC Total CO2 Anion Gap POC BUN BUN Creatinine POC Creatinine GFR Calculation Glucose POC Glucose POC Arterial Lactate Calcium POC WB Ioniz Calcium Magnesium Total Bilirubin 0.4 Direct Bilirubin 0.2 AST 18 ALT 14 Alkaline Phosphatase 130 H Total Protein 6.4 Albumin 4.1 Globulin 2.3 Albumin/Globulin Ratio Lipase Beta-Hydroxybutyrate 8.72 H Urine Color Urine Appearance Urine pH Ur Specific Citra Urine Protein Urine Glucose (UA) Urine Ketones Urine Occult Blood Urine Nitrate Urine Bilirubin Urine Urobilinogen Ur Leukocyte Esterase Urine RBC Urine WBC Ur Squamous Epith Cells Urine Bacteria Hyaline Casts Urine Mucus Ur Culture Indicated? POC Troponin I 0.04 12/06/21 12/06/21 03:05 03:05 WBC 10.0 RBC 4.42 Hgb 12.4 Hct 41.1 POC Hct MCV 93.0 MCH 28.1 MCHC 30.2 L RDW 17.4 H Plt Count 240 MPV 11.5 H Neut % (Auto) 78.9 H Lymph % (Auto) 16.9 Jefferson % (Auto) 3.8 Eos % (Auto) 0.1 Baso % (Auto) 0.3 Lymph # (Auto) 1.69 [place] # (Auto) 0.38 Eos # (Auto) 0.01 Baso # (Auto) 0.03 Absolute Neutrophils 7.89 POC pH POC pCO2 POC pO2 POC HCO3 POC ABG Base Excess Hgb O2 Saturation POC Sodium Sodium 127 L POC Potassium Potassium 5.4 H POC Chloride Chloride 84 L Carbon Dioxide 10 L* POC Total CO2 Anion Gap 33.0 H POC BUN BUN 37 H Creatinine 1.4 H POC Creatinine GFR Calculation 34 Glucose 841 H* POC Glucose POC Arterial Lactate Calcium 9.9 POC WB Ioniz Calcium Magnesium Total Bilirubin 0.4 Direct Bilirubin AST 16 ALT 13 Alkaline Phosphatase 122 H Total Protein 6.9 Albumin 3.7 Globulin 3.2 Albumin/Globulin Ratio 1.2 Lipase 168 H Beta-Hydroxybutyrate Urine Color Urine Appearance Urine pH Ur Specific Citra Urine Protein Urine Glucose (UA) Urine Ketones Urine Occult Blood Urine Nitrate Urine Bilirubin Urine Urobilinogen Ur Leukocyte Esterase Urine RBC Urine WBC Ur Squamous Epith Cells Urine Bacteria Hyaline Casts Urine Mucus Ur Culture Indicated? POC Troponin I Pending A/P Assessment and plan (1) Dementia: Status: Acute (2) Chronic kidney disease, stage 3: Status: Acute (3) Toxic metabolic encephalopathy: Status: Acute (4) DKA (diabetic ketoacidosis): Status: Acute (5) High anion gap metabolic acidosis: Status: Acute (6) Hyponatremia: Status: Acute (7) CHATO (acute kidney injury): Status: Acute Narrative A/P Narrative: The patient developed hyperglycemia with osmotic diuresis and metabolism of 3 fatty acids resulting in ketogenesis and inflammation. The likely precipitant was underlying infection and possible insulin nonadherence. The patient was found to have a blood sugar of greater than 250, pH of less than 7.3, anion gap greater than 10 and urine/serum ketones. Plan of Treatment: The patient was aggressively volume resuscitated for a total body water deficit. She will be continued on NS to 50 cc an hour. We will monitor her potassium closely and hold insulin if her K becomes less than 3.3. We will continue insulin infusion after 10 unit IV bolus at 0.1 unit/kg/h. We will monitor BMPs every 2 hours until her anion gap has closed. We will check her blood sugars every 1 hour. Time Spent With Patient Time: Total time spent is greater than 50% in coordination of care (as documented) at patient's floor/unit and/or counseling patient: Total time spent with greater than 50% in coordination of care (as documented) at patient's floor/unit and/or counseling patient:: 50 - 70 minutes Critical Care Time: Yes Total Critical Care Time: 50
[2021-12-06 08:58] LABS: ABG Methemoglobin 0.2 % (0.4-1.5); Total Hemoglobin 12.4 gm/Dl (12.0-15.0); VBG Base Excess -18 (-2-3); VBG HCO3 8.6 mmol/L (24.0-28.0); VBG Oxygen Saturation 92.4 % (40.0-70.0); VBG PCO2 24.4 mmHg (41.0-51.0); VBG PH 7.16 U (7.32-7.42); VBG PO2 111.4 mmHg (25.0-40.0); VBG Total CO2 9.3 mmol/L (25.0-29.0)
[2021-12-06] MEDS: ENOXAPARIN 40 MG/0.4 ML SYRINGE SQ SCH (09:09)
[2021-12-06 09:45] LABS: ALT/SGPT 16 U/L (<40); AST/SGOT 20 U/L (<32); Albumin 3.6 gm/dL (3.2-5.2); Albumin/Globulin Ratio 1.4 (1.0-2.3); Alkaline Phosphatase 114 U/L (39-117); Bilirubin,Direct < 0.2 mg/dL (0-0.3); Bilirubin,Total 0.3 mg/dL (0.1-1.0); Globulin 2.6 gm/dL (2.2-3.7); Lactate Dehydrogenase 204 U/L (135-225); Phosphorous 7.1 mg/dL (2.5-4.5); Triglycerides 105 mg/dL (<150); Uric Acid 8.5 mg/dL (2.5-8.0)
[2021-12-06] MEDS ORDERED: INSULIN REGULAR, HUMAN 1 UNIT/0.01 ML UNIT IV SCH ×3 (10:10→13:05)
[2021-12-06 10:12] LABS: Blood Urea Nitrogen 38 mg/dL (8-23); Calcium 9.2 mg/dL (8.6-10.4); Carbon Dioxide 8 mmol/L (22-30); Chloride 89 mmol/L (96-108); Glomerular Filtration Rate 29; Glucose 888 mg/dL (70-105)
--- NOTE | 2021-12-06 11:00 | EKG ---
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
--- NOTE | 2021-12-06 11:02 | EKG ---
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
--- NOTE | 2021-12-06 11:02 | EKG ---
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
[2021-12-06 11:21] LABS: Blood Urea Nitrogen 39 mg/dL (8-23); Calcium 9.3 mg/dL (8.6-10.4); Carbon Dioxide 12 mmol/L (22-30); Chloride 89 mmol/L (96-108); Glomerular Filtration Rate 27; Glucose 789 mg/dL (70-105)
[2021-12-06 12:02] LABS: ABG Methemoglobin 0.1 % (0.4-1.5); Total Hemoglobin 12.1 gm/Dl (12.0-15.0); VBG Base Excess -7 (-2-3); VBG Oxygen Saturation 94.5 % (40.0-70.0); VBG PCO2 33.3 mmHg (41.0-51.0); VBG PH 7.35 U (7.32-7.42); VBG PO2 148.6 mmHg (25.0-40.0)
[2021-12-06 12:46] LABS: Blood Urea Nitrogen 34 mg/dL (8-23); Calcium 8.9 mg/dL (8.6-10.4); Carbon Dioxide 18 mmol/L (22-30); Chloride 96 mmol/L (96-108); Glomerular Filtration Rate 32; Glucose 518 mg/dL (70-105)
[2021-12-06] MEDS ORDERED: POTASSIUM CHLORIDE 40 MEQ in DEXTROSE 5% IN WATER 500 ML IV ONE (13:00)
[2021-12-06] MEDS: 0.9 % SODIUM CHLORIDE 10 ML SYRINGE IV SCH ×2 (14:02→20:14)
[2021-12-06 14:53] LABS: Blood Urea Nitrogen 33 mg/dL (8-23); Calcium 9.1 mg/dL (8.6-10.4); Carbon Dioxide 20 mmol/L (22-30); Chloride 100 mmol/L (96-108); Glomerular Filtration Rate 34; Glucose 384 mg/dL (70-105)
[2021-12-06 16:01] LABS: ABG Methemoglobin 0.3 % (0.4-1.5); Total Hemoglobin 11.7 gm/Dl (12.0-15.0); VBG Base Excess -2 (-2-3); VBG HCO3 22.4 mmol/L (24.0-28.0); VBG Oxygen Saturation 84.1 % (40.0-70.0); VBG PCO2 36.9 mmHg (41.0-51.0); VBG PO2 52.3 mmHg (25.0-40.0); VBG Total CO2 23.5 mmol/L (25.0-29.0)
[2021-12-06 16:39] LABS: Blood Urea Nitrogen 29 mg/dL (8-23); Calcium 8.7 mg/dL (8.6-10.4); Carbon Dioxide 23 mmol/L (22-30); Chloride 105 mmol/L (96-108); Glomerular Filtration Rate 42; Glucose 231 mg/dL (70-105)
[2021-12-06 18:31] LABS: Blood Urea Nitrogen 28 mg/dL (8-23); Calcium 8.3 mg/dL (8.6-10.4); Carbon Dioxide 24 mmol/L (22-30); Chloride 107 mmol/L (96-108); Glomerular Filtration Rate 42; Glucose 142 mg/dL (70-105)
[2021-12-06 19:47] LABS: ABG Methemoglobin 0.1 % (0.4-1.5); Total Hemoglobin 10.8 gm/Dl (12.0-15.0); VBG Base Excess 0 (-2-3); VBG HCO3 24.7 mmol/L (24.0-28.0); VBG Oxygen Saturation 93.6 % (40.0-70.0); VBG PCO2 39.3 mmHg (41.0-51.0); VBG PH 7.42 U (7.32-7.42); VBG Total CO2 25.9 mmol/L (25.0-29.0)
[2021-12-06] MEDS ORDERED: DEXTROSE 50% 50 ML SYRINGE IV ONE (20:08)
[2021-12-06] MEDS ORDERED: DEXTROSE 50% 50 ML SYRINGE IV STA (20:16)
[2021-12-06] MEDS ORDERED: DEXTROSE 31 GM ORAL.SUSP PO PRN (20:16)
[2021-12-06] MEDS ORDERED: DEXTROSE 50% 50 ML SYRINGE IV PRN (20:22)
[2021-12-06] MEDS: DEXTROSE 5%-1/2NS 1,000 ML IV SCH (20:23)
[2021-12-06 20:33] LABS: Blood Urea Nitrogen 26 mg/dL (8-23); Calcium 8.1 mg/dL (8.6-10.4); Carbon Dioxide 22 mmol/L (22-30); Chloride 110 mmol/L (96-108); Glomerular Filtration Rate 52; Glucose 40 mg/dL (70-105)
[2021-12-06] MEDS ORDERED: INSULIN GLARGINE, HUMAN 1 UNIT/0.01 ML SQ SCH (21:00)
[2021-12-06] MEDS ORDERED: INSULIN LISPRO 1 UNIT/0.01 ML UNIT SQ SCH (21:00)
[2021-12-06] MEDS: INSULIN LISPRO 1 UNIT/0.01 ML UNIT SQ SCH (21:09)
[2021-12-06] MEDS ORDERED: MELATONIN 3 MG TABLET PO PRN ×3 (22:33→23:05)
[2021-12-06] MEDS ORDERED: MELATONIN 3 MG TABLET PO ONE (23:08)
[2021-12-06] MEDS: MELATONIN 3 MG TABLET PO PRN (23:11)
[2021-12-07 00:13] LABS: ABG Methemoglobin 0.1 % (0.4-1.5); Total Hemoglobin 11.1 gm/Dl (12.0-15.0); VBG Base Excess -1 (-2-3); VBG HCO3 24.1 mmol/L (24.0-28.0); VBG Oxygen Saturation 84.7 % (40.0-70.0); VBG PCO2 41.5 mmHg (41.0-51.0); VBG PH 7.38 U (7.32-7.42); VBG PO2 55.2 mmHg (25.0-40.0); VBG Total CO2 25.4 mmol/L (25.0-29.0)
[2021-12-07 00:49] LABS: Blood Urea Nitrogen 23 mg/dL (8-23); Calcium 8.1 mg/dL (8.6-10.4); Carbon Dioxide 22 mmol/L (22-30); Chloride 109 mmol/L (96-108); Glomerular Filtration Rate 52; Glucose 132 mg/dL (70-105)
[2021-12-07] MEDS: 0.9 % SODIUM CHLORIDE 10 ML SYRINGE IV SCH ×3 (05:15→21:32)
[2021-12-07 06:50] LABS: Blood Urea Nitrogen 21 mg/dL (8-23); Calcium 7.9 mg/dL (8.6-10.4); Carbon Dioxide 21 mmol/L (22-30); Chloride 110 mmol/L (96-108); Glomerular Filtration Rate 68; Glucose 142 mg/dL (70-105)
[2021-12-07] MEDS: ACETAMINOPHEN 325 MG TABLET PO PRN ×2 (07:04→19:29)
[2021-12-07] MEDS: DEXTROSE 5%-1/2NS 1,000 ML IV SCH (07:04)
[2021-12-07] MEDS: INSULIN LISPRO 1 UNIT/0.01 ML UNIT SQ SCH ×7 (08:09→21:25)
[2021-12-07] MEDS: ENOXAPARIN 40 MG/0.4 ML SYRINGE SQ SCH (08:09)
--- NOTE | 2021-12-07 10:19 | Internal Med Progress Note ---
SUBJECTIVE Subjective Patient information: Note initiated : 12/07/21 at 10:16 am Service Date, if different from initiated Date: [as above] Patient: Janay Kraft a 81 y/o F admitted on 12/06/21 for High Blood Sugar. Chief Complaint: [ALOC] Principal diagnosis: Toxic metabolic encephalopathy, DKA Interval history: The patient has significantly improved in the last 24 hours. She is no longer obtunded. She is alert, and able to carry a conversation. She is fully responsive. Discussed the case with the RN who was present at the bedside. Discussed the case throughout the day with the daughter. Constitutional Vitals: Vital Signs Temp Pulse Resp BP Pulse Ox 98.6 F 78 19 139/81 99 12/07/21 07:09 12/07/21 10:06 12/07/21 07:09 12/07/21 10:06 12/07/21 10:06 Period Temp Pulse Resp BP Sys/Mckenna Pulse Ox Last 24 Hr 97.4 F-98.6 F 37-120 9-33 86-139/41-81 89-100 Intake and Output 12/06/21 12/07/21 12/07/21 21:59 05:59 13:59 Intake Total 2614 120 1320 Output Total 1135 194 20 Balance 1479 -74 1300 Weight 47.741 kg Intake & Output: Intake & Output 12/06/21 12/07/21 12/07/21 21:59 05:59 13:59 Intake Total 2614 120 1320 Output Total 1135 194 20 Balance 1479 -74 1300 Weight 47.741 kg Intake: IV 2614 1000 Sodium Chloride 0.9% 1,000 ml @ 2000 250 mls/hr IV .Q4H [facility]ASQUEZ Rx#: [id number] Dextrose 5%-1/2Ns IV Solution 1 1000 ,000 ml @ 100 mls/hr IV .Q10H [facility]QUEZ Rx#:[id number] HumuLIN R 50 UNIT In Sodium 94 0 Chloride 0.9% 99.5 ml @ 4 UNIT/ HR 8 mls/hr IV Q12H [facility]ASQUEZ Rx#: [id number] Potassium Chloride 40 Meq In 520 Dextrose 5% in Water 500 ml @ 130 mls/hr IV ONCE ONE Rx#: [id number] Oral 120 320 Output: Urine Catheter Amount 1135 194 20 Other: Meal Breakfast Percent of Meal Consumed 50% Urine Appearance Clear Clear Clear Uretheral (Mays) Clear Urine Color Bright Yellow Bright Yellow Uretheral (Mays) Bright Yellow Urine Odor Normal Head Head exam: Present atraumatic and normal inspection Eye Eye exam: Present normal appearance ENT ENT exam: Present mucous membranes moist, normal exam and normal external ear exam Neck Neck exam: Present normal inspection Respiratory Respiratory exam: Present normal respiratory exam Cardiovascular Cardiovascular exam: Present normal rate and rhythm GI/Abdominal GI/Abdominal exam: Present normal bowel sounds Back Exam Back exam: Present normal inspection Neurological Exam Neurological exam: Present alert and oriented X3 Skin Skin exam: Present intact and warm OBJ DATA Labs CBC & Chem 7: 12/06/21 03:05 12/07/21 04:20 Labs: Abnormal Lab Results 12/07/21 12/06/21 12/06/21 04:20 23:50 23:50 MCHC RDW MPV Neut % (Auto) POC pH POC pCO2 POC HCO3 POC ABG Base Excess ABG Methemoglobin 0.1 L VBG pH VBG pCO2 VBG pO2 55.2 H VBG HCO3 VBG Total CO2 VBG O2 Saturation 84.7 H VBG Base Excess Hgb O2 Saturation Carboxyhemoglobin 6.3 H Total Hemoglobin 11.1 L POC Sodium Sodium POC Potassium Potassium Chloride 110 H 109 H Carbon Dioxide 21 L POC Total CO2 Anion Gap POC BUN BUN Creatinine POC Creatinine Glucose 142 H 132 H POC Glucose POC Arterial Lactate Uric Acid Calcium 7.9 L 8.1 L POC WB Ioniz Calcium Phosphorus Alkaline Phosphatase Lipase Beta-Hydroxybutyrate Urine Appearance Urine Glucose (UA) Urine Ketones Hyaline Casts Urine Mucus 12/06/21 12/06/21 12/06/21 19:24 19:24 17:20 MCHC RDW MPV Neut % (Auto) POC pH POC pCO2 POC HCO3 POC ABG Base Excess ABG Methemoglobin 0.1 L VBG pH VBG pCO2 39.3 L VBG pO2 112.0 H VBG HCO3 VBG Total CO2 VBG O2 Saturation 93.6 H VBG Base Excess Hgb O2 Saturation Carboxyhemoglobin 4.3 H Total Hemoglobin 10.8 L POC Sodium Sodium POC Potassium Potassium Chloride 110 H Carbon Dioxide POC Total CO2 Anion Gap POC BUN BUN 26 H 28 H Creatinine 1.2 H POC Creatinine Glucose 40 L 142 H POC Glucose POC Arterial Lactate Uric Acid Calcium 8.1 L 8.3 L POC WB Ioniz Calcium Phosphorus Alkaline Phosphatase Lipase Beta-Hydroxybutyrate Urine Appearance Urine Glucose (UA) Urine Ketones Hyaline Casts Urine Mucus 12/06/21 12/06/21 12/06/21 15:37 15:37 13:23 MCHC RDW MPV Neut % (Auto) POC pH POC pCO2 POC HCO3 POC ABG Base Excess ABG Methemoglobin 0.3 L VBG pH VBG pCO2 36.9 L VBG pO2 52.3 H VBG HCO3 22.4 L VBG Total CO2 23.5 L VBG O2 Saturation 84.1 H VBG Base Excess Hgb O2 Saturation Carboxyhemoglobin 5.5 H Total Hemoglobin 11.7 L POC Sodium Sodium POC Potassium Potassium Chloride Carbon Dioxide 20 L POC Total CO2 Anion Gap 19.0 H POC BUN BUN 29 H 33 H Creatinine 1.2 H 1.4 H POC Creatinine Glucose 231 H 384 H POC Glucose POC Arterial Lactate Uric Acid Calcium POC WB Ioniz Calcium Phosphorus Alkaline Phosphatase Lipase Beta-Hydroxybutyrate Urine Appearance Urine Glucose (UA) Urine Ketones Hyaline Casts Urine Mucus 12/06/21 12/06/21 12/06/21 11:36 11:36 09:30 MCH RDW MPV Neut % (Auto) POC pH POC pCO2 POC HCO3 POC ABG Base Excess ABG Methemoglobin 0.1 L VBG pH VBG pCO2 33.3 L VBG pO2 148.6 H VBG HCO3 18.0 L VBG Total CO2 19.0 L VBG O2 Saturation 94.5 H VBG Base Excess -7 L Hgb O2 Saturation Carboxyhemoglobin 4.1 H Total Hemoglobin POC Sodium Sodium 130 L POC Potassium Potassium 3.2 L Chloride 89 L Carbon Dioxide 18 L 12 L POC Total CO2 Anion Gap 20.0 H 29.0 H POC BUN BUN 34 H 39 H Creatinine 1.5 H 1.7 H POC Creatinine Glucose 518 H* 789 H* POC Glucose POC Arterial Lactate Uric Acid Calcium POC WB Ioniz Calcium Phosphorus Alkaline Phosphatase Lipase Beta-Hydroxybutyrate Urine Appearance Urine Glucose (UA) Urine Ketones Hyaline Casts Urine Mucus 12/06/21 12/06/21 12/06/21 08:28 08:28 08:15 MCHC RDW MPV Neut % (Auto) POC pH 7.15 L* POC pCO2 21.5 L* POC HCO3 7.4 L POC ABG Base Excess -21.0 L ABG Methemoglobin 0.2 L VBG pH 7.16 L* VBG pCO2 24.4 L VBG pO2 111.4 H VBG HCO3 8.6 L* VBG Total CO2 9.3 L* VBG O2 Saturation 92.4 H VBG Base Excess -18 L Hgb O2 Saturation 93.0 L Carboxyhemoglobin 5.2 H Total Hemoglobin POC Sodium Sodium 132 L POC Potassium Potassium Chloride 89 L Carbon Dioxide 8 L* POC Total CO2 8.0 L* Anion Gap 35.0 H POC BUN BUN 38 H Creatinine 1.6 H POC Creatinine Glucose 888 H* POC Glucose POC Arterial Lactate 4.3 H* Uric Acid 8.5 H Calcium POC WB Ioniz Calcium Phosphorus 7.1 H* Alkaline Phosphatase Lipase Beta-Hydroxybutyrate Urine Appearance Urine Glucose (UA) Urine Ketones Hyaline Casts Urine Mucus 12/06/21 12/06/21 12/06/21 07:56 06:08 05:21 MCHC RDW MPV Neut % (Auto) POC pH POC pCO2 POC HCO3 POC ABG Base Excess ABG Methemoglobin VBG pH VBG pCO2 VBG pO2 VBG HCO3 VBG Total CO2 VBG O2 Saturation VBG Base Excess Hgb O2 Saturation Carboxyhemoglobin Total Hemoglobin POC Sodium 131 L 125 L Sodium POC Potassium 5.6 H Potassium Chloride Carbon Dioxide POC Total CO2 10.0 L 8.0 L* Anion Gap POC BUN 37 H 45 H BUN Creatinine POC Creatinine 1.3 H Glucose POC Glucose > 700 H* > 700 H* POC Arterial Lactate Uric Acid Calcium POC WB Ioniz Calcium 0.99 L Phosphorus Alkaline Phosphatase Lipase Beta-Hydroxybutyrate Urine Appearance Hazy A Urine Glucose (UA) >=500 A Urine Ketones 80 A Hyaline Casts 5 H Urine Mucus Few A 12/06/21 12/06/21 12/06/21 03:05 03:05 03:05 MCHC RDW MPV Neut % (Auto) POC pH POC pCO2 POC HCO3 POC ABG Base Excess ABG Methemoglobin VBG pH VBG pCO2 VBG pO2 VBG HCO3 VBG Total CO2 VBG O2 Saturation VBG Base Excess Hgb O2 Saturation Carboxyhemoglobin Total Hemoglobin POC Sodium Sodium 127 L POC Potassium Potassium 5.4 H Chloride 84 L Carbon Dioxide 10 L* POC Total CO2 Anion Gap 33.0 H POC BUN BUN 37 H Creatinine 1.4 H POC Creatinine Glucose 841 H* POC Glucose POC Arterial Lactate Uric Acid Calcium POC WB Ioniz Calcium Phosphorus Alkaline Phosphatase 130 H 122 H Lipase 168 H Beta-Hydroxybutyrate 8.72 H Urine Appearance Urine Glucose (UA) Urine Ketones Hyaline Casts Urine Mucus 12/06/21 03:05 MCHC 30.2 L RDW 17.4 H MPV 11.5 H Neut % (Auto) 78.9 H POC pH POC pCO2 POC HCO3 POC ABG Base Excess ABG Methemoglobin VBG pH VBG pCO2 VBG pO2 VBG HCO3 VBG Total CO2 VBG O2 Saturation VBG Base Excess Hgb O2 Saturation Carboxyhemoglobin Total Hemoglobin POC Sodium Sodium POC Potassium Potassium Chloride Carbon Dioxide POC Total CO2 Anion Gap POC BUN BUN Creatinine POC Creatinine Glucose POC Glucose POC Arterial Lactate Uric Acid Calcium POC WB Ioniz Calcium Phosphorus Alkaline Phosphatase Lipase Beta-Hydroxybutyrate Urine Appearance Urine Glucose (UA) Urine Ketones Hyaline Casts Urine Mucus Meds: Medications Acetaminophen (Acetaminophen 325 Mg Tablet) 650 mg PO Q4-6HP PRN; Protocol PRN Reason: Per Pain Protocol/Fever > 101 Last Admin: 12/07/21 07:04 Dose: 650 mg Documented by: Dextrose (Dextrose 50% 50 Ml Syringe) 0 ml IV UD PRN PRN Reason: Per Sliding Scale Diagnostic Test (Pha) (Accu-Chek 1 Each Strip) 1 each FS [facility] Last Admin: 12/07/21 10:09 Dose: 1 each Documented by: Enoxaparin Sodium (Enoxaparin 40 Mg/0.4 Ml Syringe) 40 mg SQ DAILY [facility] Last Admin: 12/07/21 08:09 Dose: 40 mg Documented by: Glucose (Dextrose 31 Gm Oral.Susp) 15 gm PO PRN PRN PRN Reason: Hypoglycemia Dextrose/Sodium Chloride (Dextrose 5%-1/2ns Iv Solution) 1,000 mls @ 100 mls/hr IV .Q10H [facility] Last Admin: 12/07/21 07:04 Dose: 100 mls/hr Documented by: Insulin Glargine (Insulin Glargine, Human 1 Unit/0.01 Ml) 40 unit SQ [facility] Insulin Human Lispro (Insulin Lispro 1 Unit/0.01 Ml Unit) 0 unit SQ ACHS [facility]; Protocol Last Admin: 12/07/21 08:09 Dose: 2 units Documented by: Insulin Human Lispro (Insulin Lispro 1 Unit/0.01 Ml Unit) 12 unit SQ TID [facility] Last Admin: 12/07/21 10:09 Dose: Not Given Documented by: Melatonin (Melatonin 3 Mg Tablet) 6 mg PO HSP PRN PRN Reason: Insomnia Last Admin: 12/06/21 23:11 Dose: 6 mg Documented by: Ondansetron HCl (Ondansetron 4 Mg/2 Ml Vial) 4 mg IV Q4-6HP PRN; Protocol PRN Reason: Nausea And Vomiting Senna (Sennosides 1 Tablet) 2 tab PO HSP PRN PRN Reason: Constipation Sodium Chloride (0.9 % Sodium Chloride 10 Ml Syringe) 10 ml IV Q8 [facility] Last Admin: 12/07/21 05:15 Dose: 10 ml Documented by: ABG Interpretation ABG results: 12/06/21 12/06/21 12/06/21 08:28 11:36 15:37 ABG Methemoglobin 0.2 L 0.1 L 0.3 L VBG pH 7.16 L* 7.35 7.40 VBG pCO2 24.4 L 33.3 L 36.9 L VBG pO2 111.4 H 148.6 H 52.3 H VBG HCO3 8.6 L* 18.0 L 22.4 L VBG Total CO2 9.3 L* 19.0 L 23.5 L VBG O2 Saturation 92.4 H 94.5 H 84.1 H VBG Base Excess -18 L -7 L -2 12/06/21 12/06/21 19:24 23:50 ABG Methemoglobin 0.1 L 0.1 L VBG pH 7.42 7.38 VBG pCO2 39.3 L 41.5 VBG pO2 112.0 H 55.2 H VBG HCO3 24.7 24.1 VBG Total CO2 25.9 25.4 VBG O2 Saturation 93.6 H 84.7 H VBG Base Excess 0 -1 A/P Assessment and plan (1) Dementia: Status: Acute (2) Chronic kidney disease, stage 3: Status: Acute (3) Toxic metabolic encephalopathy: Status: Acute (4) DKA (diabetic ketoacidosis): Status: Acute (5) High anion gap metabolic acidosis: Status: Acute (6) Hyponatremia: Status: Acute (7) CHATO (acute kidney injury): Status: Acute Narrative A/P Narrative: The patient developed hyperglycemia with osmotic diuresis and metabolism of 3 fatty acids resulting in ketogenesis and inflammation. The likely precipitant was underlying infection and possible insulin nonadherence. The patient was found to have a blood sugar of greater than 250, pH of less than 7.3, anion gap greater than 10 and urine/serum ketones. Plan of Treatment: The patient was aggressively volume resuscitated for a total body water deficit. She will be continued on NS to 50 cc an hour. We will monitor her potassium closely and hold insulin if her K becomes less than 3.3. We will continue insulin infusion after 10 unit IV bolus at 0.1 unit/kg/h. We will monitor BMPs every 2 hours until her anion gap has closed. We will check her blood sugars every 1 hour. 12/07: The patient's insulin infusion was discontinued yesterday evening. She was started on Lantus 15 units nightly, lispro 16 units 3 times daily and insulin sliding scale. This was based on her calculations over the need for 24- hour. As she used 84 units of insulin in 11 hours while on the infusion. This will be slightly adjusted today. She has been started on a general diet. Her half NS D5W has been discontinued. The patient's kidney function has normalized, her electrolyte derangements have improved. We will transfer her out of the ICU today. Time Spent With Patient Time: Total time spent is greater than 50% in coordination of care (as documented) at patient's floor/unit and/or counseling patient: Total time spent with greater than 50% in coordination of care (as documented) at patient's floor/unit and/or counseling patient:: 50 - 70 minutes QUALITY VTE Deep Vein Thrombosis/Pulmonary Embolism Present on Admission: No
--- NOTE | 2021-12-07 15:54 | Cat Scan Report ---
CLINICAL INFORMATION: Altered mental status, recent urinary tract infection COMPARISON: 05/06/2021 TECHNIQUE: Axial imaging of the abdomen and pelvis obtained without contrast. FINDINGS: Mild intrahepatic biliary ductal dilatation is similar to prior CT from 2020. No acute hepatic abnormality. Normal spleen, pancreas and adrenal glands. Kidneys have normal noncontrast appearance. No hydronephrosis. No renal calculi. No perinephric inflammation. Gallbladder appears somewhat distended. There could be associated inflammation. No stones identified in the gallbladder within limits of CT evaluation. Minimal pelvic fluid. No free intraperitoneal air. Moderate diffuse wall thickening of rectum and distal sigmoid colon. Remainder of bowel without acute abnormality. Normal appendix. Catheter present within urinary bladder. Wall of urinary bladder is diffusely thickened. No acute bony abnormality. Small bilateral pleural effusions with mild right lower lobe atelectasis versus pneumonia IMPRESSION: Diffuse thickening of wall of urinary bladder suggestive of cystitis. Kidneys normal. Thickening of wall of rectum and distal sigmoid colon may represent proctitis. Distended gallbladder. If there are symptoms suggesting cholecystitis a right upper quadrant ultrasound is recommended. Small bilateral pleural effusions with mild right lower lobe atelectasis versus pneumonia Interpreted and Authenticated by: Garth Jean M.D. 12/07/21
[2021-12-07] MEDS ORDERED: INSULIN GLARGINE, HUMAN 1 UNIT/0.01 ML SQ SCH (21:00)
[2021-12-07] MEDS: MELATONIN 3 MG TABLET PO PRN (21:31)
[2021-12-08 00:32] LABS: Blood Urea Nitrogen 16 mg/dL (8-23); Calcium 6.7 mg/dL (8.6-10.4); Carbon Dioxide 19 mmol/L (22-30); Chloride 113 mmol/L (96-108); Glomerular Filtration Rate 84; Glucose 128 mg/dL (70-105)
[2021-12-08] MEDS: 0.9 % SODIUM CHLORIDE 10 ML SYRINGE IV SCH ×3 (04:22→20:56)
[2021-12-08 06:49] LABS: Blood Urea Nitrogen 9 mg/dL (8-23); Calcium 8.8 mg/dL (8.6-10.4); Carbon Dioxide 25 mmol/L (22-30); Chloride 105 mmol/L (96-108); Glomerular Filtration Rate 89; Glucose 99 mg/dL (70-105)
[2021-12-08] MEDS: INSULIN LISPRO 1 UNIT/0.01 ML UNIT SQ SCH ×7 (07:42→20:53)
[2021-12-08] MEDS: ENOXAPARIN 40 MG/0.4 ML SYRINGE SQ SCH (08:38)
--- NOTE | 2021-12-08 10:23 | Internal Med Progress Note ---
SUBJECTIVE Subjective Patient information: Note initiated : 12/08/21 at 10:20 am Service Date, if different from initiated Date: [] Patient: Janay Kraft a 81 y/o F admitted on 12/06/21 for High Blood Sugar. Chief Complaint: [ALOC] Principal diagnosis: Toxic metabolic encephalopathy, DKA Interval history: The patient's blood sugar was low this morning. Discussed the case with the RN. Her mealtime insulin was not given. She did get Lantus 40 units yesterday evening. She did not have much of an appetite and did not have much of her breakfast this morning. I will readjust her insulin regimen today. Constitutional Vitals: Vital Signs Temp Pulse Resp BP Pulse Ox 96.9 F L 95 H 16 163/90 96 12/08/21 08:00 12/08/21 08:00 12/08/21 08:00 12/08/21 08:00 12/08/21 08:00 Period Temp Pulse Resp BP Sys/Mckenna Pulse Ox Last 24 Hr 96.9 F-99.1 F 72-95 14-16 120-163/52-90 93-96 Intake and Output 12/07/21 12/08/21 12/08/21 21:59 05:59 13:59 Intake Total 250 1000 Output Total 1 1 Balance -1 249 1000 Weight 47.741 kg Intake & Output: Intake & Output 12/07/21 12/08/21 12/08/21 21:59 05:59 13:59 Intake Total 250 1000 Output Total 1 1 Balance -1 249 1000 Weight 47.741 kg Intake: IV 1000 Dextrose 5%-1/2Ns IV Solution 1 1000 ,000 ml @ 100 mls/hr IV .Q10H [facility] Rx#:[id number] Oral 250 Output: # of times incontinent of urine 1 1 Head Head exam: Present atraumatic and normal inspection Eye Eye exam: Present normal appearance ENT ENT exam: Present mucous membranes moist, normal exam and normal external ear exam Neck Neck exam: Present normal inspection Respiratory Respiratory exam: Present normal respiratory exam Cardiovascular Cardiovascular exam: Present normal rate and rhythm GI/Abdominal GI/Abdominal exam: Present normal bowel sounds Back Exam Back exam: Present normal inspection Neurological Exam Neurological exam: Present alert and oriented X3 Skin Skin exam: Present intact and warm OBJ DATA Labs CBC & Chem 7: 12/06/21 03:05 12/08/21 05:30 Labs: Abnormal Lab Results 12/08/21 12/07/21 12/07/21 05:30 08:00 07:56 MCHC RDW MPV Neut % (Auto) POC pH POC pCO2 POC HCO3 POC ABG Base Excess ABG Methemoglobin VBG pH VBG pCO2 VBG pO2 VBG HCO3 VBG Total CO2 VBG O2 Saturation VBG Base Excess Hgb O2 Saturation Carboxyhemoglobin Total Hemoglobin POC Sodium Sodium POC Potassium Potassium 3.2 L Chloride 113 H Carbon Dioxide 19 L POC Total CO2 Anion Gap POC BUN BUN Creatinine 0.5 L POC Creatinine Glucose 128 H POC Glucose POC Arterial Lactate Uric Acid Calcium 6.7 L POC WB Ioniz Calcium Phosphorus Magnesium 1.4 L Alkaline Phosphatase Lipase Beta-Hydroxybutyrate Urine Appearance Urine Glucose (UA) Urine Ketones Hyaline Casts Urine Mucus 12/07/21 12/06/21 12/06/21 04:20 23:50 23:50 MCHC RDW MPV Neut % (Auto) POC pH POC pCO2 POC HCO3 POC ABG Base Excess ABG Methemoglobin 0.1 L VBG pH VBG pCO2 VBG pO2 55.2 H VBG HCO3 VBG Total CO2 VBG O2 Saturation 84.7 H VBG Base Excess Hgb O2 Saturation Carboxyhemoglobin 6.3 H Total Hemoglobin 11.1 L POC Sodium Sodium POC Potassium Potassium Chloride 110 H 109 H Carbon Dioxide 21 L POC Total CO2 Anion Gap POC BUN BUN Creatinine POC Creatinine Glucose 142 H 132 H POC Glucose POC Arterial Lactate Uric Acid Calcium 7.9 L 8.1 L POC WB Ioniz Calcium Phosphorus Magnesium Alkaline Phosphatase Lipase Beta-Hydroxybutyrate Urine Appearance Urine Glucose (UA) Urine Ketones Hyaline Casts Urine Mucus 12/06/21 12/06/21 12/06/21 19:24 19:24 17:20 MCHC RDW MPV Neut % (Auto) POC pH POC pCO2 POC HCO3 POC ABG Base Excess ABG Methemoglobin 0.1 L VBG pH VBG pCO2 39.3 L VBG pO2 112.0 H VBG HCO3 VBG Total CO2 VBG O2 Saturation 93.6 H VBG Base Excess Hgb O2 Saturation Carboxyhemoglobin 4.3 H Total Hemoglobin 10.8 L POC Sodium Sodium POC Potassium Potassium Chloride 110 H Carbon Dioxide POC Total CO2 Anion Gap POC BUN BUN 26 H 28 H Creatinine 1.2 H POC Creatinine Glucose 40 L 142 H POC Glucose POC Arterial Lactate Uric Acid Calcium 8.1 L 8.3 L POC WB Ioniz Calcium Phosphorus Magnesium Alkaline Phosphatase Lipase Beta-Hydroxybutyrate Urine Appearance Urine Glucose (UA) Urine Ketones Hyaline Casts Urine Mucus 12/06/21 12/06/21 12/06/21 15:37 15:37 13:23 MCHC RDW MPV Neut % (Auto) POC pH POC pCO2 POC HCO3 POC ABG Base Excess ABG Methemoglobin 0.3 L VBG pH VBG pCO2 36.9 L VBG pO2 52.3 H VBG HCO3 22.4 L VBG Total CO2 23.5 L VBG O2 Saturation 84.1 H VBG Base Excess Hgb O2 Saturation Carboxyhemoglobin 5.5 H Total Hemoglobin 11.7 L POC Sodium Sodium POC Potassium Potassium Chloride Carbon Dioxide 20 L POC Total CO2 Anion Gap 19.0 H POC BUN BUN 29 H 33 H Creatinine 1.2 H 1.4 H POC Creatinine Glucose 231 H 384 H POC Glucose POC Arterial Lactate Uric Acid Calcium POC WB Ioniz Calcium Phosphorus Magnesium Alkaline Phosphatase Lipase Beta-Hydroxybutyrate Urine Appearance Urine Glucose (UA) Urine Ketones Hyaline Casts Urine Mucus 12/06/21 12/06/21 12/06/21 11:36 11:36 09:30 MCHC RDW MPV Neut % (Auto) POC pH POC pCO2 POC HCO3 POC ABG Base Excess ABG Methemoglobin 0.1 L VBG pH VBG pCO2 33.3 L VBG pO2 148.6 H VBG HCO3 18.0 L VBG Total CO2 19.0 L VBG O2 Saturation 94.5 H VBG Base Excess -7 L Hgb O2 Saturation Carboxyhemoglobin 4.1 H Total Hemoglobin POC Sodium Sodium 130 L POC Potassium Potassium 3.2 L Chloride 89 L Carbon Dioxide 18 L 12 L POC Total CO2 Anion Gap 20.0 H 29.0 H POC BUN BUN 34 H 39 H Creatinine 1.5 H 1.7 H POC Creatinine Glucose 518 H* 789 H* POC Glucose POC Arterial Lactate Uric Acid Calcium POC WB Ioniz Calcium Phosphorus Magnesium Alkaline Phosphatase Lipase Beta-Hydroxybutyrate Urine Appearance Urine Glucose (UA) Urine Ketones Hyaline Casts Urine Mucus 12/06/21 12/06/21 12/06/21 08:28 08:28 08:15 MCHC RDW MPV Neut % (Auto) POC pH 7.15 L* POC pCO2 21.5 L* POC HCO3 7.4 L POC ABG Base Excess -21.0 L ABG Methemoglobin 0.2 L VBG pH 7.16 L* VBG pCO2 24.4 L VBG pO2 111.4 H VBG HCO3 8.6 L* VBG Total CO2 9.3 L* VBG O2 Saturation 92.4 H VBG Base Excess -18 L Hgb O2 Saturation 93.0 L Carboxyhemoglobin 5.2 H Total Hemoglobin POC Sodium Sodium 132 L POC Potassium Potassium Chloride 89 L Carbon Dioxide 8 L* POC Total CO2 8.0 L* Anion Gap 35.0 H POC BUN BUN 38 H Creatinine 1.6 H POC Creatinine Glucose 888 H* POC Glucose POC Arterial Lactate 4.3 H* Uric Acid 8.5 H Calcium POC WB Ioniz Calcium Phosphorus 7.1 H* Magnesium Alkaline Phosphatase Lipase Beta-Hydroxybutyrate Urine Appearance Urine Glucose (UA) Urine Ketones Hyaline Casts Urine Mucus 12/06/21 12/06/21 12/06/21 07:56 06:08 05:21 MCHC RDW MPV Neut % (Auto) POC pH POC pCO2 POC HCO3 POC ABG Base Excess ABG Methemoglobin VBG pH VBG pCO2 VBG pO2 VBG HCO3 VBG Total CO2 VBG O2 Saturation VBG Base Excess Hgb O2 Saturation Carboxyhemoglobin Total Hemoglobin POC Sodium 131 L 125 L Sodium POC Potassium 5.6 H Potassium Chloride Carbon Dioxide POC Total CO2 10.0 L 8.0 L* Anion Gap POC BUN 37 H 45 H BUN Creatinine POC Creatinine 1.3 H Glucose POC Glucose > 700 H* > 700 H* POC Arterial Lactate Uric Acid Calcium POC WB Ioniz Calcium 0.99 L Phosphorus Magnesium Alkaline Phosphatase Lipase Beta-Hydroxybutyrate Urine Appearance Hazy A Urine Glucose (UA) >=500 A Urine Ketones 80 A Hyaline Casts 5 H Urine Mucus Few A 12/06/21 12/06/21 12/06/21 03:05 03:05 03:05 MCHC RDW MPV Neut % (Auto) POC pH POC pCO2 POC HCO3 POC ABG Base Excess ABG Methemoglobin VBG pH VBG pCO2 VBG pO2 VBG HCO3 VBG Total CO2 VBG O2 Saturation VBG Base Excess Hgb O2 Saturation Carboxyhemoglobin Total Hemoglobin POC Sodium Sodium 127 L POC Potassium Potassium 5.4 H Chloride 84 L Carbon Dioxide 10 L* POC Total CO2 Anion Gap 33.0 H POC BUN BUN 37 H Creatinine 1.4 H POC Creatinine Glucose 841 H* POC Glucose POC Arterial Lactate Uric Acid Calcium POC WB Ioniz Calcium Phosphorus Magnesium Alkaline Phosphatase 130 H 122 H Lipase 168 H Beta-Hydroxybutyrate 8.72 H Urine Appearance Urine Glucose (UA) Urine Ketones Hyaline Casts Urine Mucus 12/06/21 03:05 MCHC 30.2 L RDW 17.4 H MPV 11.5 H Neut % (Auto) 78.9 H POC pH POC pCO2 POC HCO3 POC ABG Base Excess ABG Methemoglobin VBG pH VBG pCO2 VBG pO2 VBG HCO3 VBG Total CO2 VBG O2 Saturation VBG Base Excess Hgb O2 Saturation Carboxyhemoglobin Total Hemoglobin POC Sodium Sodium POC Potassium Potassium Chloride Carbon Dioxide POC Total CO2 Anion Gap POC BUN BUN Creatinine POC Creatinine Glucose POC Glucose POC Arterial Lactate Uric Acid Calcium POC WB Ioniz Calcium Phosphorus Magnesium Alkaline Phosphatase Lipase Beta-Hydroxybutyrate Urine Appearance Urine Glucose (UA) Urine Ketones Hyaline Casts Urine Mucus Meds: Medications Acetaminophen (Acetaminophen 325 Mg Tablet) 650 mg PO Q4-6HP PRN; Protocol PRN Reason: Per Pain Protocol/Fever > 101 Last Admin: 12/07/21 19:29 Dose: 650 mg Documented by: Dextrose (Dextrose 50% 50 Ml Syringe) 0 ml IV UD PRN PRN Reason: Per Sliding Scale Last Admin: 12/08/21 04:19 Dose: 50 ml Documented by: Diagnostic Test (Pha) (Accu-Chek 1 Each Strip) [address] [facility] Last Admin: 12/08/21 07:34 Dose: 1 each Documented by: Enoxaparin Sodium (Enoxaparin 40 Mg/0.4 Ml Syringe) 40 mg SQ DAILY [facility] Last Admin: 12/08/21 08:38 Dose: 40 mg Documented by: Glucose (Dextrose 31 Gm Oral.Susp) 15 gm PO PRN PRN PRN Reason: Hypoglycemia Insulin Glargine (Insulin Glargine, Human 1 Unit/0.01 Ml) 35 unit SQ HS [facility] Insulin Human Lispro (Insulin Lispro 1 Unit/0.01 Ml Unit) 0 unit SQ ACHS [facility]; Protocol Last Admin: 12/08/21 07:42 Dose: Not Given Documented by: Insulin Human Lispro (Insulin Lispro 1 Unit/0.01 Ml Unit) 8 unit SQ TID [facility] Melatonin (Melatonin 3 Mg Tablet) 6 mg PO HSP PRN PRN Reason: Insomnia Last Admin: 12/07/21 21:31 Dose: 6 mg Documented by: Ondansetron HCl (Ondansetron 4 Mg/2 Ml Vial) 4 mg IV Q4-6HP PRN; Protocol PRN Reason: Nausea And Vomiting Senna (Sennosides 1 Tablet) 2 tab PO HSP PRN PRN Reason: Constipation Sodium Chloride (0.9 % Sodium Chloride 10 Ml Syringe) 10 ml IV Q8 [facility] Last Admin: 12/08/21 04:22 Dose: 10 ml Documented by: ABG Interpretation ABG results: 12/06/21 12/06/21 12/06/21 08:28 11:36 15:37 ABG Methemoglobin 0.2 L 0.1 L 0.3 L VBG pH 7.16 L* 7.35 7.40 VBG pCO2 24.4 L 33.3 L 36.9 L VBG pO2 111.4 H 148.6 H 52.3 H VBG HCO3 8.6 L* 18.0 L 22.4 L VBG Total CO2 9.3 L* 19.0 L 23.5 L VBG O2 Saturation 92.4 H 94.5 H 84.1 H VBG Base Excess -18 L -7 L -2 12/06/21 12/06/21 19:24 23:50 ABG Methemoglobin 0.1 L 0.1 L VBG pH 7.42 7.38 VBG pCO2 39.3 L 41.5 VBG pO2 112.0 H 55.2 H VBG HCO3 24.7 24.1 VBG Total CO2 25.9 25.4 VBG O2 Saturation 93.6 H 84.7 H VBG Base Excess 0 -1 A/P Narrative Plan of Treatment: The patient was aggressively volume resuscitated for a total body water deficit. She will be continued on NS to 50 cc an hour. We will monitor her potassium closely and hold insulin if her K becomes less than 3.3. We will continue insulin infusion after 10 unit IV bolus at 0.1 unit/kg/h. We will monitor BMPs every 2 hours until her anion gap has closed. We will check her blood sugars every 1 hour. 12/07: The patient's insulin infusion was discontinued yesterday evening. She was started on Lantus 15 units nightly, lispro 16 units 3 times daily and insulin sliding scale. This was based on her calculations over the need for 24- hour. As she used 84 units of insulin in 11 hours while on the infusion. This will be slightly adjusted today. She has been started on a general diet. Her half NS D5W has been discontinued. The patient's kidney function has normalized, her electrolyte derangements have improved. We will transfer her out of the ICU today. 12/08: The patient has made significant improvement. Her electrolyte derangements have resolved as has her CHATO. Her blood sugars have normalized. The patient's DKA was likely in the setting of UTI. We will decrease her high insulin requirements and will start Lantus 35 units and lispro 8 units 3 times daily with meals. Continue insulin sliding scale Time Spent With Patient Time: Total time spent is greater than 50% in coordination of care (as documented) at patient's floor/unit and/or counseling patient: Total time spent with greater than 50% in coordination of care (as documented) at patient's floor/unit and/or counseling patient:: 25 - 35 minutes QUALITY VTE Deep Vein Thrombosis/Pulmonary Embolism Present on Admission: No
[2021-12-08] MEDS: MELATONIN 3 MG TABLET PO PRN (20:56)
[2021-12-08] MEDS: ACETAMINOPHEN 325 MG TABLET PO PRN (20:56)
[2021-12-08] MEDS ORDERED: INSULIN GLARGINE, HUMAN 1 UNIT/0.01 ML SQ SCH (21:00)
[2021-12-09] MEDS: 0.9 % SODIUM CHLORIDE 10 ML SYRINGE IV SCH (04:55)
[2021-12-09] MEDS: INSULIN LISPRO 1 UNIT/0.01 ML UNIT SQ SCH ×3 (07:24→11:14)
[2021-12-09 07:32] LABS: Blood Urea Nitrogen 8 mg/dL (8-23); Carbon Dioxide 26 mmol/L (22-30); Chloride 99 mmol/L (96-108); Glomerular Filtration Rate 89; Glucose 119 mg/dL (70-105)
[2021-12-09] MEDS: ENOXAPARIN 40 MG/0.4 ML SYRINGE SQ SCH (08:49)
--- NOTE | 2021-12-09 09:56 | Discharge Summary ---
Discharge Provider Provider Patient information: Note initiated : 12/09/21 at 9:54 am Service Date, if different from initiated Date: [] Patient: Janay Kraft a 81 y/o F admitted on 12/06/21 for High Blood Sugar. Chief Complaint: [DKA] Date of admission: 12/06/21 07:15 Discharge date: 12/09/21 Primary care physician: Avila Renner Admitting clinician: Bruno Barraza Consults: 12/06/21 Consult to Physician [CONS] Stat Comment: Consulting Provider: Bruno Barraza Reason For Exam: Physician to Consult Attending physician on discharge: Bruno Barraza Discharge Meds Discharge Medications Home Medications insulin aspart U-100 100 unit/mL (3 mL) subcutaneous pen (Novolog Flexpen U-100 Insulin aspart) 8 unit SUBCUT Q30MIN PRN 11/04/15 [History Confirmed 12/06/21 Last Taken 11/03/15] insulin glargine 100 unit/mL (3 mL) subcutaneous pen (Lantus Solostar U-100 Insulin) 30 unit SQ QHS 11/04/15 [History Confirmed 12/06/21 Last Taken 12/05/21 20:00] omeprazole 20 mg capsule,delayed release 20 mg PO ACB 11/04/15 [History Confirmed 12/06/21 Last Taken 12/05/21 07:30] polyethylene glycol 3350 17 gram oral powder packet (Miralax) 17 gm PO BID 11/04/15 [History Confirmed 12/06/21 Last Taken 12/05/21 20:00] bisacodyl 10 mg rectal suppository (Dulcolax (bisacodyl)) 10 mg CA HS 07/30/21 [History Confirmed 12/06/21 Last Taken 12/05/21 21:00] insulin aspart U-100 100 unit/mL (3 mL) subcutaneous pen (Novolog Flexpen U-100 Insulin aspart) See Rx Instructions .ROUTE .COMPLEX 07/30/21 [History Confirmed 12/06/21 Last Taken Unknown] methenamine hippurate 1 gram tablet 1 g PO BID 07/30/21 [History Confirmed 12/06/21 Last Taken 12/05/21 21:00] tamsulosin 0.4 mg capsule 0.4 mg PO HS 07/30/21 [History Confirmed 12/06/21 Last Taken Unknown] trazodone 150 mg tablet 150 mg PO HS 07/30/21 [History Confirmed 12/06/21 Last Taken 12/05/21 20:00] blood sugar diagnostic (Blood Glucose Test) 12/06/21 [History Confirmed 12/06/21 Last Taken Unknown] blood-glucose meter (Blood Glucose Monitoring) 12/06/21 [History Confirmed 12/06/21 Last Taken Unknown] citalopram 20 mg tablet 1 tab PO QDAY 12/06/21 [History Confirmed 12/06/21 Last Taken 12/05/21 08:00] dextrose 40 % oral gel (Glucose Gel) 15 g PO Q15MIN PRN 12/06/21 [History Confirmed 12/06/21 Last Taken Unknown] glucagon 1 mg solution for injection (Glucagon Emergency Kit) 1 mg IM Q15MIN PRN 12/06/21 [History Confirmed 12/06/21 Last Taken Unknown] insulin aspart U-100 100 unit/mL (3 mL) subcutaneous pen 5 unit SUBCUT TIDAC 12/06/21 [History Confirmed 12/06/21 Last Taken 12/05/21 16:30] melatonin 5 mg tablet 5 mg PO HS 12/06/21 [History Confirmed 12/06/21 Last Taken 12/05/21 21:00] mineral oil (Fleet Mineral Oil) 1 ea CA DAILYP PRN 12/06/21 [History Confirmed 12/06/21 Last Taken Unknown] multivitamin with minerals-folic acid 0.4 mg tablet 1 tab PO DAILY 12/06/21 [History Confirmed 12/06/21 Last Taken 12/05/21 20:00] COURSE Hospital Course Hospital course: Ms. Kraft is a 81 year old F with a past medical history significant for insulin-dependent diabetes, dementia, CKD stage III, and osteoporosis who presents to the hospital from her group home facility in the setting of encephalopathy and hyperglycemia. The nursing facility was struggling to manage her high blood sugars for the past week. She was suspected to have a urinary tract infection and was treated with Rocephin. She was given IV fluids at the nursing facility as well. Unfortunately, her blood sugars were significantly elevated and she was on low-dose insulin sliding scale and was getting 15 to 30 units of Lantus which was inadequate. She presents to the hospital encephalopathic today with dry mucous membranes. She has significant electrolyte derangements, and anion gap metabolic acidosis. The patient's blood gas reveals a pH of 7.15, PCO2 of 21, and bicarb of 8. The patient's blood sugar was 847, anion gap was 37, and creatinine was 1.4. The patient's lactic acid was 4.3. She had a beta hydroxybutyrate level of 8.72 and her urine was positive for ketones. The hospital service was asked to admit the patient for further management and evaluation of her diabetic ketoacidosis. 12/07: The patient's insulin infusion was discontinued yesterday evening. She was started on Lantus 15 units nightly, lispro 16 units 3 times daily and insulin sliding scale. This was based on her calculations over the need for 24- hour. As she used 84 units of insulin in 11 hours while on the infusion. This will be slightly adjusted today. She has been started on a general diet. Her half NS D5W has been discontinued. The patient's kidney function has normalized, her electrolyte derangements have improved. We will transfer her o ut of the ICU today. 12/08: The patient has made significant improvement. Her electrolyte derangements have resolved as has her CHATO. Her blood sugars have normalized. The patient's DKA was likely in the setting of UTI. We will decrease her high insulin requirements and will start Lantus 35 units and lispro 8 units 3 times daily with meals. Continue insulin sliding scale 12/09: The patient's insulin requirements are near her baseline. Her blood sugars have been stable for the last 48 hours. She will be discharged to group home facility today. Follow-up with her primary care physician. Her DKA was likely exacerbated in the setting of underlying UTI. Discharge diagnosis: Toxic metabolic encephalopathy, DKA, CHATO Time Spent with Patient Time attestation: Total time spent providing and/or coordinating discharge services: Time spent: Greater than 30 minutes EXAM Constitutional Vitals: Temp Pulse Resp BP Pulse Ox 97.2 F 84 12 126/73 96 12/09/21 08:01 12/09/21 08:01 12/09/21 08:01 12/09/21 08:01 12/09/21 08:01 General appearance: average body habitus Head Head exam: Present atraumatic, normal inspection and normocephalic Eye Eye exam: Present EOMI, normal appearance and PERRL; Absent conjunctival injection ENT ENT exam: Present normal exam; Absent mucous membranes dry Neck Neck exam: Present full ROM; Absent lymphadenopathy Respiratory Respiratory exam: Present normal respiratory exam and CTAB; Absent decreased breath sounds, respiratory distress or wheezes Cardiovascular Cardiovascular exam: Present normal rate and rhythm and RRR; Absent JVD GI/Abdominal GI/Abdominal exam: Present normal bowel sounds and soft; Absent diminished bowel sounds, distended, guarding, mass, rebound or tenderness Neurological Exam Neurological exam: Present alert, CN II-XII intact and oriented X3 Psychiatric Psychiatric exam: Present normal affect and normal mood Skin Skin exam: Present intact and warm; Absent erythema, pallor, petechiae or rash Discharge Data Data Completed and Pending Labs on day of discharge: Labs from last 24 hours 12/09/21 05:22 Sodium 138 Potassium 3.2 L Chloride 99 Carbon Dioxide 26 Anion Gap 13.0 BUN 8 Creatinine 0.5 L GFR Calculation 89 Glucose 119 H Calcium 9.0 Discharge Plan Patient/Caregiver Discharge Instructions Activity: as per physical therapy Instructions: Encephalopathy (GEN) Prescriptions: Continued polyethylene glycol 3350 [Miralax] 17 GM powder in packet 17 gm PO BID 0RF omeprazole 20 MG capsule,delayed release(DR/EC) 20 mg PO ACB 0RF insulin aspart U-100 [Novolog Flexpen U-100 Insulin] 100 UNIT/ML insulin pen 8 unit subcut Q30MIN PRN (Reason: Hyperglycemia) 0RF Rx Instructions: Inject 8 units SQ every 30 minutes as needed for hyperglycemia related to Type II Diabetes Lantus Solostar U-100 Insulin 100 UNIT/ML insulin pen 30 unit SQ QHS 0RF methenamine hippurate 1 gram tablet 1 g PO BID 0RF tamsulosin 0.4 mg capsule 0.4 mg PO HS 0RF bisacodyl [Dulcolax (bisacodyl)] 10 mg suppository 10 mg CA HS 0RF trazodone 150 mg tablet 150 mg PO HS 0RF insulin aspart U-100 [Novolog Flexpen U-100 Insulin] 100 unit/mL (3 mL) insulin pen See Rx Instructions .ROUTE .COMPLEX 0RF Rx Instructions: Inject as per sliding scale: if 0-70 =0 Notify PCP immediately and start facility hypoglycemic protocol for blood glucose <70.; 140-180= 2 units; 181-240= 3 Units; 241-300= 4 Units; 301-350= 6 Units; 351- 400 = 8 Units; 401+ = 10 Units; Call PCP if BS is >500 multivit with min-folic acid 0.4 mg Tablet 1 tab PO DAILY 0RF melatonin 5 mg Tablet 5 mg PO HS 0RF (DME) Blood Glucose Test Strip MISCELLANEOUS 0RF Rx Instructions: Before meals and at bedtime citalopram 20 mg tablet 1 tab PO QDAY 0RF insulin aspart U-100 100 unit/mL (3 mL) insulin pen 5 unit subcut TIDAC 0RF Glucagon Emergency Kit (human) 1 mg Recon Soln 1 mg IM Q15MIN PRN (Reason: Hypoglycemia) 0RF dextrose [Glucose Gel] 40 % Gel 15 g PO Q15MIN PRN (Reason: Hypoglycemia) 0RF Rx Instructions: Give 15 gram by mouth every 15 minutes as needed for BG <70, recheck in 15 minutes. Notify MD. mineral oil [Fleet Mineral Oil] Enema 1 ea CA DAILYP PRN (Reason: Constipation) 0RF (DME) blood-glucose meter [Blood Glucose Monitoring] Kit MISCELLANEOUS 0RF Rx Instructions: ACHS, PRN Discontinued hydrocodone-acetaminophen 10-325 mg tablet 1 tab PO Q4HP PRN (Reason: Pain) 0RF Follow Up Plan Follow up with: Avila Renner DO [Primary Care Provider] - Patient Disposition: [facility] Plan of Treatment: The patient was aggressively volume resuscitated for a total body water deficit. She will be continued on NS to 50 cc an hour. We will monitor her potassium closely and hold insulin if her K becomes less than 3.3. We will continue insulin infusion after 10 unit IV bolus at 0.1 unit/kg/h. We will monitor BMPs every 2 hours until her anion gap has closed. We will check her blood sugars every 1 hour. 12/07: The patient's insulin infusion was discontinued yesterday evening. She was started on Lantus 15 units nightly, lispro 16 units 3 times daily and insulin sliding scale. This was based on her calculations over the need for 24- hour. As she used 84 units of insulin in 11 hours while on the infusion. This will be slightly adjusted today. She has been started on a general diet. Her half NS D5W has been discontinued. The patient's kidney function has normalized, her electrolyte derangements have improved. We will transfer her out of the ICU today. 12/08: The patient has made significant improvement. Her electrolyte derangements have resolved as has her CHATO. Her blood sugars have normalized. The patient's DKA was likely in the setting of UTI. We will decrease her high insulin requirements and will start Lantus 35 units and lispro 8 units 3 times daily with meals. Continue insulin sliding scale Prognosis: Good Rehab Potential: Good I certify that the patient requires SNF services: Yes Overall status at discharge: patient is progressing back to baseline Discharge Orders: Discharge Order (Routine); Ordered 12/09/21 Ordered By: Bruno MÁRQUEZ VTE Deep Vein Thrombosis/Pulmonary Embolism Present on Admission: No
== END 2021-12-09 13:10 | DRG 637 ==
LOC: ED 02:27 → ICU 07:15 → MEDSUR 12-07 12:34
PROVIDERS: ADMIT Student in an Organized Health Care Education/Training Program; ATTEND Student in an Organized Health Care Education/Training Program

== ENCOUNTER 2021-12-17 10:20 | Inpatient (IN) ==
--- NOTE | 2021-12-17 10:30 | Emergency Department Note ---
HPI General Chief complaint: Blood Sugar Problem Stated complaint: gerry blood glucose Time Seen by Provider: 12/17/21 10:29 Source: patient, EMS and RN notes reviewed Mode of arrival: EMS Limitations: altered mental status History of Present Illness HPI Narrative: 81-year-old female presenting with hyperglycemia. Patient was admitted to the hospital for DKA approximately 1 week ago. She improved and she was discharged back to the nursing facility on Lantus 35 units and lispro 8 units 3 times daily with meals as well as insulin sliding scale. Her blood sugars have reportedly been difficult to manage at the nursing facility and this morning her blood glucose read "high". She reportedly was given 15 units of insulin but 20 minutes later her repeat glucose still read "high". She was given an additional 10 units of insulin and transferred to the emergency department. Daughter states she endorsed some nausea this morning but no report of vomiting, diarrhea, abdominal pain, fever, or cough. She was treated for a UTI during her last admission but is not currently on antibiotics. Patient has a history of chronic kidney disease, diabetes, and dementia. Patient is a poor historian but has no complaints right now. Related Data Home Medications Medication Instructions Recorded Confirmed omeprazole 20 mg capsule,delayed 20 mg PO ACB 11/04/15 12/17/21 release polyethylene glycol 3350 17 gram 17 gm PO BID 11/04/15 12/17/21 oral powder packet (Miralax) bisacodyl 10 mg rectal suppository 10 mg NH HS 07/30/21 12/17/21 (Dulcolax (bisacodyl)) methenamine hippurate 1 gram tablet 1 g PO BID 07/30/21 12/17/21 trazodone 150 mg tablet 150 mg PO HS 07/30/21 12/17/21 blood sugar diagnostic (Blood 12/06/21 12/17/21 Glucose Test) blood-glucose meter (Blood Glucose 12/06/21 12/17/21 Monitoring) citalopram 20 mg tablet 1 tab PO QDAY 12/06/21 12/17/21 dextrose 40 % oral gel (Glucose 15 g PO Q15MIN PRN 12/06/21 12/17/21 Gel) glucagon 1 mg solution for 1 mg IM Q15MIN PRN 12/06/21 12/17/21 injection (Glucagon Emergency Kit) melatonin 5 mg tablet 5 mg PO HS 12/06/21 12/17/21 mineral oil (Fleet Mineral Oil) 1 ea NH DAILYP PRN 12/06/21 12/17/21 multivitamin with minerals-folic 1 tab PO DAILY 12/06/21 12/17/21 acid 0.4 mg tablet acetaminophen 325 mg tablet 650 mg PO Q6H PRN 12/17/21 12/17/21 (Tylenol) hydrocodone 10 mg-acetaminophen 1 tab PO Q4HP PRN 12/17/21 12/17/21 325 mg tablet insulin aspart U-100 100 unit/mL 5 unit SUBCUT AC 12/17/21 12/17/21 (3 mL) subcutaneous pen insulin lispro 100 unit/mL 1 - 8 sliding scale dose SUBCUT 12/17/21 12/17/21 subcutaneous pen ACHS PRN sodium phosphates 19 gram-7 118 ml NH DAILY PRN 12/17/21 12/17/21 gram/118 mL enema (Fleet Enema) Allergies Allergy/AdvReac Type Severity Reaction Status Date / Time No Known Drug Allergies Allergy Verified 12/06/21 12:14 Review of Systems ROS ROS Narrative: Narrative: Limitations: ROS unobtainable due to patients medical condition Constitutional: Denies fever Cardiovascular: Denies chest pain Respiratory: Denies shortness of breath Gastrointestinal: Reports nausea; Denies abdominal pain or vomiting Integumentary: Denies rash PFSH Narrative Patient History Narrative: Narrative: Medical/Surgical/Family History All Active Problems (Updated 12/17/21 @ 13:22 by Bimal Cervantes MD) DKA (diabetic ketoacidosis) (Acute) Acute metabolic encephalopathy (Acute) History of dementia (Acute) DKA (diabetic ketoacidosis) (Acute) Leukocytosis (Acute) Pancreatitis (Acute) CHATO (acute kidney injury) (Acute) Hyponatremia (Acute) High anion gap metabolic acidosis (Acute) DKA (diabetic ketoacidosis) (Acute) Toxic metabolic encephalopathy (Acute) GERD (gastroesophageal reflux disease) (Acute) Osteoporosis (Acute) Dementia (Acute) Chronic kidney disease, stage 3 (Acute) Type 2 diabetes mellitus not at goal (Acute) Closed femur fracture (Acute) Medical History Chronic kidney disease, stage 3 Constipation Dementia Diabetic neuropathy Fecal impaction in rectum GERD (gastroesophageal reflux disease) Osteoporosis Type 2 diabetes mellitus not at goal Social History Smoking Status: Never smoker Alcohol Intake Frequency: does not drink Exam Narrative Narrative: Narrative: General Limitations: altered mental status General appearance: Present alert, in no apparent distress and other (Kussmaul- like breathing noted) Head Head: Present atraumatic and normocephalic Eye Eye: Present normal appearance, PERRL and EOMI; Absent scleral icterus or conjunctival injection ENT ENT: Present mucous membranes moist Neck Neck: Present trachea midline Chest Chest: Present symmetric chest wall rise Respiratory Respiratory: Present normal lung sounds bilaterally and other (tachypneic); Absent wheezes, stridor or accessory muscle use Cardiovascular Cardiovascular: Present normal rhythm and tachycardia; Absent systolic murmur or diastolic murmur Adbominal Abdominal: Present soft; Absent distention, tenderness, guarding, rebound, rigidity or organomegaly Extremities Extremities: Present normal inspection; Absent pretibial edema Neurological Neurological: Present alert and other (oriented x1 (baseline)); Absent motor sensory deficit Psychiatric Psychiatric: Present normal affect and normal mood Skin Skin: Present warm (WNL) and dry Course Consultations Consultation #1: Dr. Jones, hospitalist Time: 13:10 Vital Signs Vital signs: Vital Signs Temperature 98.4 F 12/17/21 10:21 Pulse Rate 125 H 12/17/21 10:21 Respiratory Rate 20 12/17/21 10:21 Blood Pressure 106/48 12/17/21 10:21 Pulse Oximetry (%) 99 12/17/21 10:21 Temperature 99.0 F 12/17/21 15:17 Pulse Rate 86 12/17/21 16:04 Respiratory Rate 18 12/17/21 16:04 Blood Pressure 112/55 12/17/21 16:04 Pulse Oximetry (%) 100 12/17/21 16:04 [facility] MDM Narrative Medical decision making narrative: 81-year-old female presenting with hyperglycemia. On arrival to the ED she is tachypneic and tachycardic. No fever. Concern for DKA. Will obtain labs, UA, and reevaluate. She received a normal saline bolus from EMS and an additional 1 L normal saline bolus was ordered. 1310: Labs are consistent with DKA, glucose is 639, pH 7.3, anion gap of 30, lactic acid of 8.2, and ketones of 4.1. Of note her lipase is elevated today to 1082 and she has a leukocytosis of 22.0. She has a mild CHATO with a creatinine of 2.0. A third 1L bolus of normal saline was ordered. She was given 10 units IV insulin bolus and started on an insulin drip at 5 units/h. Her potassium was 3. 9 so 20mEQ of IV potassium ordered. Patient's heart rate has improved after IV fluids and blood pressure appears stable in the low 100s to 110s systolic. UA is pending and given her leukocytosis there is concern for infection that may be instigating this DKA. Will place ferrer catheter for urinalysis and I&O monitoring. Blood cultures ordered as well as IV vancomycin and Zosyn. I spoke with Dr. Jones, hospitalist, and we will also order a CT of the abdomen to further evaluate. Dr. Jones will come down to see the patient. Will continue to monitor. Patient transferred to the ICU. Lab Data Lab results reviewed: Yes I reviewed the patient's lab results. Result diagrams: 12/17/21 10:48 12/17/21 12:55 Labs: Lab Results 12/17/21 12/17/21 12/17/21 Range/Units 10:48 10:48 10:48 WBC 22.0 H (4.5-11.0) K/mcL RBC 3.80 (3.59-5.38) M/mcL Hgb 11.0 L (11.2-15.7) g/dL Hct 35.6 (34.1-44.9) % MCV 93.7 (80.0-100.0) fL MCH 28.9 (26.0-34.0) pg MCHC 30.9 L (31.0-36.0) g/dL RDW 17.3 H (11.5-14.5) % Plt Count 448 H (140-440) K/mcL MPV 9.3 (7.4-10.4) fL Neut % (Auto) 92.1 H (38.0-78.0) % Lymph % (Auto) 2.6 L (15.5-49.0) % [place] % (Auto) 5.1 (1.0-12.0) % Eos % (Auto) 0 (0.0-7.0) % Baso % (Auto) 0.2 (0.0-2.0) % Lymph # (Auto) 0.57 L (1.50-4.80) K/mcL [place] # (Auto) 1.13 H (0.10-0.90) K/mcL Eos # (Auto) 0 (0.00-0.70) K/mcL Baso # (Auto) 0.05 (0.00-0.30) K/mcL Seg Neutrophils % (38-78) % Band Neutrophils % (0-10) % Lymphocytes % (15-49) % Monocytes % (Manual) (1-12) % Metamyelocytes % % Myelocytes % % Absolute Neutrophils 20.28 H (1.80-8.00) K/mcL Platelet Estimate (Normal) RBC Morphology (Normal) Anisocytosis (None Seen) ABG Methemoglobin (0.4-1.5) % VBG pH (7.32-7.42) U VBG pCO2 (41.0-51.0) mmHg VBG pO2 (25.0-40.0) mmHg VBG HCO3 (24.0-28.0) mmol/L VBG Total CO2 (25.0-29.0) mmol/L VBG O2 Saturation (40.0-70.0) % VBG Base Excess (-2-3) VBG Lactic Acid 8.2 H* (0.5-2.0) mmol/L Carboxyhemoglobin (0.0-1.5) % THgb Total Hemoglobin (12.0-15.0) gm/Dl Sodium 131 L (133-145) mmol/L Potassium 3.9 (3.3-5.1) mmol/L Chloride 90 L (96-108) mmol/L Carbon Dioxide 11 L (22-30) mmol/L Anion Gap 30.0 H (8.0-16.0) BUN 38 H (8-23) mg/dL Creatinine 2.0 H (0.6-1.1) mg/dL GFR Calculation 22 Glucose 639 H* (70-105) mg/dL Hemoglobin A1c (4.0-6.0) % Hgb Estim Average Glucose mg/dL Uric Acid (2.5-8.0) mg/dL Calcium 8.8 (8.6-10.4) mg/dL Phosphorus (2.5-4.5) mg/dL Magnesium 2.0 (1.6-2.5) mg/dL Total Bilirubin 0.2 (0.1-1.0) mg/dL Direct Bilirubin (0-0.3) mg/dL GGT (5-36) U/L AST 25 (<32) U/L ALT 41 H (<40) U/L Alkaline Phosphatase 130 H (39-117) U/L Lactate Dehydrogenase (135-225) U/L Total Protein 5.8 L (5.9-8.4) gm/dL Albumin 3.4 (3.2-5.2) gm/dL Globulin 2.4 (2.2-3.7) gm/dL Albumin/Globulin Ratio 1.4 (1.0-2.3) Triglycerides (<150) mg/dL Lipase 1082 H (7-60) U/L Beta-Hydroxybutyrate 4.10 H (<0.27) mmol/L Urine Color Urine Appearance (Clear) Urine pH (5.0-9.0) Ur Specific [place] (1.000-1.035) Urine Protein (Negative) mg/dL Urine Glucose (UA) (Negative) mg/dL Urine Ketones (Negative) mg/dL Urine Occult Blood (Negative) mg/dL Urine Nitrate (Negative) Urine Bilirubin (Negative) mg/dL Urine Urobilinogen mg/dL Ur Leukocyte Esterase (Negative) /uL Urine RBC (0-3) /hpf Urine WBC (0-4) /hpf Ur Squamous Epith Cells (0-4) /hpf Urine Bacteria (0) /hpf Hyaline Casts (0-2) /lph Urine Mucus (None) /hpf Urine Yeast (Budding) (None) /hpf Ur Culture Indicated? 12/17/21 12/17/21 12/17/21 Range/Units 10:48 12:55 13:21 WBC (4.5-11.0) K/mcL RBC (3.59-5.38) M/mcL Hgb (11.2-15.7) g/dL Hct (34.1-44.9) % MCV (80.0-100.0) fL MCH (26.0-34.0) pg MCHC (31.0-36.0) g/dL RDW (11.5-14.5) % Plt Count (140-440) K/mcL MPV (7.4-10.4) fL Neut % (Auto) (38.0-78.0) % Lymph % (Auto) (15.5-49.0) % [place] % (Auto) (1.0-12.0) % Eos % (Auto) (0.0-7.0) % Baso % (Auto) (0.0-2.0) % Lymph # (Auto) (1.50-4.80) K/mcL [place] # (Auto) (0.10-0.90) K/mcL Eos # (Auto) (0.00-0.70) K/mcL Baso # (Auto) (0.00-0.30) K/mcL Seg Neutrophils % 80 H (38-78) % Band Neutrophils % 5 (0-10) % Lymphocytes % 7 L (15-49) % Monocytes % (Manual) 6 (1-12) % Metamyelocytes % 1 % Myelocytes % 1 % Absolute Neutrophils (1.80-8.00) K/mcL Platelet Estimate Increased A (Normal) RBC Morphology Abnormal A (Normal) Anisocytosis 1+ A (None Seen) ABG Methemoglobin 0.3 L (0.4-1.5) % VBG pH 7.30 L (7.32-7.42) U VBG pCO2 25.1 L (41.0-51.0) mmHg VBG pO2 65.6 H (25.0-40.0) mmHg VBG HCO3 12.1 L (24.0-28.0) mmol/L VBG Total CO2 12.9 L (25.0-29.0) mmol/L VBG O2 Saturation 89.2 H (40.0-70.0) % VBG Base Excess -13 L (-2-3) VBG Lactic Acid (0.5-2.0) mmol/L Carboxyhemoglobin 3.6 H (0.0-1.5) % THgb Total Hemoglobin 12.0 (12.0-15.0) gm/Dl Sodium 132 L (133-145) mmol/L Potassium 3.8 (3.3-5.1) mmol/L Chloride 96 (96-108) mmol/L Carbon Dioxide 18 L (22-30) mmol/L Anion Gap 18.0 H (8.0-16.0) BUN 35 H (8-23) mg/dL Creatinine 1.6 H (0.6-1.1) mg/dL GFR Calculation 29 Glucose 389 H (70-105) mg/dL Hemoglobin A1c (4.0-6.0) % Hgb Estim Average Glucose mg/dL Uric Acid 7.4 (2.5-8.0) mg/dL Calcium 8.9 (8.6-10.4) mg/dL Phosphorus 2.9 (2.5-4.5) mg/dL Magnesium 1.9 (1.6-2.5) mg/dL Total Bilirubin 0.2 (0.1-1.0) mg/dL Direct Bilirubin < 0.2 (0-0.3) mg/dL GGT 73 H (5-36) U/L AST 27 (<32) U/L ALT 40 H (<40) U/L Alkaline Phosphatase 136 H (39-117) U/L Lactate Dehydrogenase 223 (135-225) U/L Total Protein 6.1 (5.9-8.4) gm/dL Albumin 3.4 (3.2-5.2) gm/dL Globulin 2.7 (2.2-3.7) gm/dL Albumin/Globulin Ratio 1.3 (1.0-2.3) Triglycerides 107 (<150) mg/dL Lipase (7-60) U/L Beta-Hydroxybutyrate (<0.27) mmol/L Urine Color Urine Appearance (Clear) Urine pH (5.0-9.0) Ur Specific [place] (1.000-1.035) Urine Protein (Negative) mg/dL Urine Glucose (UA) (Negative) mg/dL Urine Ketones (Negative) mg/dL Urine Occult Blood (Negative) mg/dL Urine Nitrate (Negative) Urine Bilirubin (Negative) mg/dL Urine Urobilinogen mg/dL Ur Leukocyte Esterase (Negative) /uL Urine RBC (0-3) /hpf Urine WBC (0-4) /hpf Ur Squamous Epith Cells (0-4) /hpf Urine Bacteria (0) /hpf Hyaline Casts (0-2) /lph Urine Mucus (None) /hpf Urine Yeast (Budding) (None) /hpf Ur Culture Indicated? 12/17/21 12/17/21 Range/Units 13:21 14:45 WBC (4.5-11.0) K/mcL RBC (3.59-5.38) M/mcL Hgb (11.2-15.7) g/dL Hct (34.1-44.9) % MCV (80.0-100.0) fL MCH (26.0-34.0) pg MCHC (31.0-36.0) g/dL RDW (11.5-14.5) % Plt Count (140-440) K/mcL MPV (7.4-10.4) fL Neut % (Auto) (38.0-78.0) % Lymph % (Auto) (15.5-49.0) % [place] % (Auto) (1.0-12.0) % Eos % (Auto) (0.0-7.0) % Baso % (Auto) (0.0-2.0) % Lymph # (Auto) (1.50-4.80) K/mcL [place] # (Auto) (0.10-0.90) K/mcL Eos # (Auto) (0.00-0.70) K/mcL Baso # (Auto) (0.00-0.30) K/mcL Seg Neutrophils % (38-78) % Band Neutrophils % (0-10) % Lymphocytes % (15-49) % Monocytes % (Manual) (1-12) % Metamyelocytes % % Myelocytes % % Absolute Neutrophils (1.80-8.00) K/mcL Platelet Estimate (Normal) RBC Morphology (Normal) Anisocytosis (None Seen) ABG Methemoglobin (0.4-1.5) % VBG pH (7.32-7.42) U VBG pCO2 (41.0-51.0) mmHg VBG pO2 (25.0-40.0) mmHg VBG HCO3 (24.0-28.0) mmol/L VBG Total CO2 (25.0-29.0) mmol/L VBG O2 Saturation (40.0-70.0) % VBG Base Excess (-2-3) VBG Lactic Acid (0.5-2.0) mmol/L Carboxyhemoglobin (0.0-1.5) % THgb Total Hemoglobin (12.0-15.0) gm/Dl Sodium (133-145) mmol/L Potassium (3.3-5.1) mmol/L Chloride (96-108) mmol/L Carbon Dioxide (22-30) mmol/L Anion Gap (8.0-16.0) BUN (8-23) mg/dL Creatinine (0.6-1.1) mg/dL GFR Calculation Glucose (70-105) mg/dL Hemoglobin A1c 9.4 H (4.0-6.0) % Hgb Estim Average Glucose 223 mg/dL Uric Acid (2.5-8.0) mg/dL Calcium (8.6-10.4) mg/dL Phosphorus (2.5-4.5) mg/dL Magnesium (1.6-2.5) mg/dL Total Bilirubin (0.1-1.0) mg/dL Direct Bilirubin (0-0.3) mg/dL GGT (5-36) U/L AST (<32) U/L ALT (<40) U/L Alkaline Phosphatase (39-117) U/L Lactate Dehydrogenase (135-225) U/L Total Protein (5.9-8.4) gm/dL Albumin (3.2-5.2) gm/dL Globulin (2.2-3.7) gm/dL Albumin/Globulin Ratio (1.0-2.3) Triglycerides (<150) mg/dL Lipase (7-60) U/L Beta-Hydroxybutyrate (<0.27) mmol/L Urine Color Yellow Urine Appearance Cloudy A (Clear) Urine pH 5.0 (5.0-9.0) Ur Specific [place] 1.021 (1.000-1.035) Urine Protein Negative (Negative) mg/dL Urine Glucose (UA) >=500 A (Negative) mg/dL Urine Ketones 20 A (Negative) mg/dL Urine Occult Blood Negative (Negative) mg/dL Urine Nitrate Negative (Negative) Urine Bilirubin Negative (Negative) mg/dL Urine Urobilinogen Negative mg/dL Ur Leukocyte Esterase 75 A (Negative) /uL Urine RBC 5 H (0-3) /hpf Urine WBC 21 H (0-4) /hpf Ur Squamous Epith Cells 7 H (0-4) /hpf Urine Bacteria None (0) /hpf Hyaline Casts 22 H (0-2) /lph Urine Mucus Few A (None) /hpf Urine Yeast (Budding) Many A (None) /hpf Ur Culture Indicated? No EKG Data EKG #1: EKG attestation: Yes I reviewed and interpreted this EKG. and Yes There are no EKG findings of acute coronary syndrome EKG results narrative: Sinus tachycardia at [address] elevation or depression. QTC is 628. When compared to previous EKG there are: no significant changes CC TIME Critical Care Time Critical Care Time: Yes Total Critical Care Time: 40 Attestation: I spent greater than 40 minutes of critical care time (excluding procedures) in the evaluation, treatment, and consultation regarding this patient's life- threatening DKA. Discharge Plan Patient/Caregiver Discharge Instructions Pt seen by DATA GOVERNANCE CONSULTANT/PA only: No Clinical Impression: DKA (diabetic ketoacidosis), Leukocytosis, Pancreatitis Patient Disposition: Xfer As Inpt ([facility]) Condition: Fair Discharge Date/Time: 12/17/21 14:49 Discharge Comment: Via stretcher
[2021-12-17] MEDS ORDERED: 0.9 % SODIUM CHLORIDE 1,000 ML IV ONE ×2 (10:35→12:24)
[2021-12-17 11:08] LABS: ABG Methemoglobin 0.3 % (0.4-1.5); VBG Base Excess -13 (-2-3); VBG HCO3 12.1 mmol/L (24.0-28.0); VBG Oxygen Saturation 89.2 % (40.0-70.0); VBG PCO2 25.1 mmHg (41.0-51.0); VBG PO2 65.6 mmHg (25.0-40.0); VBG Total CO2 12.9 mmol/L (25.0-29.0)
[2021-12-17 11:47] LABS: Basophils # (Auto) 0.05 K/mcL (0.00-0.30); Basophils % (Auto) 0.2 % (0.0-2.0); Eosinophils # (Auto) 0 K/mcL (0.00-0.70); Eosinophils % (Auto) 0 % (0.0-7.0); Hematocrit 35.6 % (34.1-44.9); Lymphocytes # (Auto) 0.57 K/mcL (1.50-4.80); Lymphocytes % (Auto) 2.6 % (15.5-49.0); Mean Cell Volume 93.7 fL (80.0-100.0); Mean Corpuscular HGB Conc 30.9 g/dL (31.0-36.0); Mean Platelet Volume 9.3 fL (7.4-10.4); Monocytes # (Auto) 1.13 K/mcL (0.10-0.90); Monocytes % (Auto) 5.1 % (1.0-12.0); Neutrophils % (Auto) 92.1 % (38.0-78.0); Platelet Count 448 K/mcL (140-440); Red Cell Distribution Width 17.3 % (11.5-14.5)
[2021-12-17 11:49] LABS: ALT/SGPT 41 U/L (<40); AST/SGOT 25 U/L (<32); Albumin 3.4 gm/dL (3.2-5.2); Albumin/Globulin Ratio 1.4 (1.0-2.3); Alkaline Phosphatase 130 U/L (39-117); Bilirubin,Total 0.2 mg/dL (0.1-1.0); Blood Urea Nitrogen 38 mg/dL (8-23); Calcium 8.8 mg/dL (8.6-10.4); Carbon Dioxide 11 mmol/L (22-30); Chloride 90 mmol/L (96-108); Globulin 2.4 gm/dL (2.2-3.7); Glomerular Filtration Rate 22; Glucose 639 mg/dL (70-105)
[2021-12-17] MEDS ORDERED: POTASSIUM CHLORIDE 20 MEQ in DEXTROSE 5% IN WATER 250 ML IV ONE (12:24)
[2021-12-17] MEDS ORDERED: INSULIN REGULAR, HUMAN 1 UNIT/0.01 ML UNIT IV ONE (12:24)
[2021-12-17] MEDS ORDERED: VANCOMYCIN 1,000 MG in 0.9 % SODIUM CHLORIDE 250 ML IV ONE (12:27)
[2021-12-17] MEDS ORDERED: PIPERACILLIN SODIUM/TAZOBACTAM 3.375 GM in DEXTROSE 5% IN WATER 50 ML IV ONE (12:27)
[2021-12-17] MEDS ORDERED: INSULIN REGULAR, HUMAN 50 UNIT in 0.9 % SODIUM CHLORIDE 99.5 ML IV SCH ×2 (12:30→16:00)
--- NOTE | 2021-12-17 13:35 | Internal Med History&Physical ---
HPI History of Present Illness Patient information: Note initiated : 12/17/21 at 1:19 pm Service Date, if different from initiated Date: [] Patient: Janay Kraft a 81 y/o F admitted on for gerry blood glucose. Chief Complaint: [] History of present illness: Ms. Kraft is a 81 year old F Presents the ED with elevated blood glucose. Patient has history of dementia and resides in a nursing facility. She was admitted in the hospital a week and a half ago for DKA felt to be precipitated by UTI. She was in the hospital for 3 days. She was also in the hospital in July for right hip fracture. Patient is a poor historian and history is obtained from chart and family. The daughter says that the patient is able to carry on a conversation when she is at baseline. Daughter does not recall her being sick recently or having any complaints other than she did have nausea yesterday. Insulin regimen was 30 units of long-acting at night with 5 units at mealtime and sliding scale coverage on top of that. She was being transitioned to 30 units in the morning and then continue with 5 units at meal with sliding scale. However they were going to adjust her long- acting from 30 to 35. Diana states that she has been a brittle diabetic over the years but mostly with high blood glucose. In the ED she initially vital signs that were tachycardic in the 120s tachypneic and she did low blood pressures initially. Chemistry significant for acidosis on labs and blood gas. Significantly elevated lactate at 8.2 blood glucose 640 and acute kidney injury. Leukocytosis noted. Lipase is elevated but she does not seem to have any abdominal pain, likely secondary to DKA as opposed to pancreatitis. Patient was given generous IV fluid and started on insulin drip in the ED. Urinalysis pending. CT abdomen pelvis pending. Reviewing some old notes, blood glucose seems to be labile, expect her stay will be extended due to the time of finding the right insulin regimen. Review of Systems: Unable to obtain due to patient's altered state PFSH PFSH All Active Problems (Updated 12/17/21 @ 13:22 by Bimal Cervantes MD) DKA (diabetic ketoacidosis) (Acute) Acute metabolic encephalopathy (Acute) History of dementia (Acute) DKA (diabetic ketoacidosis) (Acute) Leukocytosis (Acute) Pancreatitis (Acute) CHATO (acute kidney injury) (Acute) Hyponatremia (Acute) High anion gap metabolic acidosis (Acute) DKA (diabetic ketoacidosis) (Acute) Toxic metabolic encephalopathy (Acute) GERD (gastroesophageal reflux disease) (Acute) Osteoporosis (Acute) Dementia (Acute) Chronic kidney disease, stage 3 (Acute) Type 2 diabetes mellitus not at goal (Acute) Closed femur fracture (Acute) Medical History Chronic kidney disease, stage 3 Constipation Dementia Diabetic neuropathy Fecal impaction in rectum GERD (gastroesophageal reflux disease) Osteoporosis Type 2 diabetes mellitus not at goal Social History alcohol intake frequency: does not drink MEDS/ALLERGIES Home Medications and Allergies Home Medications Medication Instructions Recorded Confirmed Type insulin aspart U-100 100 unit/mL 8 unit SUBCUT Q30MIN PRN 11/04/15 12/17/21 History (3 mL) subcutaneous pen (Novolog Flexpen U-100 Insulin aspart) insulin glargine 100 unit/mL (3 30 unit SQ QHS 11/04/15 12/17/21 History mL) subcutaneous pen (Lantus Solostar U-100 Insulin) omeprazole 20 mg capsule,delayed 20 mg PO ACB 11/04/15 12/17/21 History release polyethylene glycol 3350 17 gram 17 gm PO BID 11/04/15 12/17/21 History oral powder packet (Miralax) bisacodyl 10 mg rectal suppository 10 mg DC HS 07/30/21 12/17/21 History (Dulcolax (bisacodyl)) insulin aspart U-100 100 unit/mL See Rx Instructions .ROUTE .COMPLEX 07/30/21 12/17/21 History (3 mL) subcutaneous pen (Novolog Flexpen U-100 Insulin aspart) methenamine hippurate 1 gram tablet 1 g PO BID 07/30/21 12/17/21 History tamsulosin 0.4 mg capsule 0.4 mg PO HS 07/30/21 12/17/21 History trazodone 150 mg tablet 150 mg PO HS 07/30/21 12/17/21 History blood sugar diagnostic (Blood 12/06/21 12/06/21 History Glucose Test) blood-glucose meter (Blood Glucose 12/06/21 12/06/21 History Monitoring) citalopram 20 mg tablet 1 tab PO QDAY 12/06/21 12/17/21 History dextrose 40 % oral gel (Glucose 15 g PO Q15MIN PRN 12/06/21 12/17/21 History Gel) glucagon 1 mg solution for 1 mg IM Q15MIN PRN 12/06/21 12/17/21 History injection (Glucagon Emergency Kit) insulin aspart U-100 100 unit/mL 5 unit SUBCUT TIDAC 12/06/21 12/17/21 History (3 mL) subcutaneous pen melatonin 5 mg tablet 5 mg PO HS 12/06/21 12/17/21 History mineral oil (Fleet Mineral Oil) 1 ea DC DAILYP PRN 12/06/21 12/17/21 History multivitamin with minerals-folic 1 tab PO DAILY 12/06/21 12/17/21 History acid 0.4 mg tablet acetaminophen 325 mg tablet 650 mg PO Q6H PRN 12/17/21 12/17/21 History (Tylenol) insulin glargine 100 unit/mL (3 15 unit SUBCUT QAM PRN 12/17/21 12/17/21 History mL) subcutaneous pen (Lantus Solostar U-100 Insulin) insulin glargine 100 unit/mL (3 35 unit SUBCUT DAILY 12/17/21 12/17/21 History mL) subcutaneous pen (Lantus Solostar U-100 Insulin) insulin lispro 100 unit/mL See Rx Instructions .ROUTE .COMPLEX 12/17/21 12/17/21 History subcutaneous pen Allergies Allergy/AdvReac Type Severity Reaction Status Date / Time No Known Drug Allergies Allergy Verified 12/06/21 12:14 EXAM Constitutional Vitals: Temp Pulse Resp BP Pulse Ox 98.4 F 86 20 103/49 100 12/17/21 10:21 12/17/21 12:36 12/17/21 12:36 12/17/21 12:31 12/17/21 12:36 Exam: General: Alert, Awake, No acute Distress Eyes/N/T: EOMI, PERRL, dryMM Head/Neck: neck supple, normocephalic atraumatic CV: Mildly tacky but regular, No murmurs, normal s1/s2 Pulm: Clear b/l, no wheezing/rhonchi/rales Abd: soft, nontender, +BS x4 Ext: no clubbing/cyanosis/edema Neuro: Patient awake but does not follow commands. Does move extremities spontaneously. Skin: warm/dry DATA Data Completed and Pending Labs: Labs from last 24 hours 12/17/21 12/17/21 12/17/21 12:55 10:48 10:48 WBC RBC Hgb Hct MCV MCH MCHC RDW Plt Count MPV Neut % (Auto) Lymph % (Auto) [place] % (Auto) Eos % (Auto) Baso % (Auto) Lymph # (Auto) [place] # (Auto) Eos # (Auto) Baso # (Auto) Absolute Neutrophils ABG Methemoglobin 0.3 L VBG pH 7.30 L VBG pCO2 25.1 L VBG pO2 65.6 H VBG HCO3 12.1 L VBG Total CO2 12.9 L VBG O2 Saturation 89.2 H VBG Base Excess -13 L VBG Lactic Acid 8.2 H* Carboxyhemoglobin 3.6 H Total Hemoglobin 12.0 Sodium Pending Potassium Pending Chloride Pending Carbon Dioxide Pending Anion Gap Pending BUN Pending Creatinine Pending GFR Calculation Pending Glucose Pending Uric Acid Pending Calcium Pending Phosphorus Pending Magnesium Pending Total Bilirubin Pending Direct Bilirubin Pending GGT Pending AST Pending ALT Pending Alkaline Phosphatase Pending Lactate Dehydrogenase Pending Total Protein Pending Albumin Pending Globulin Pending Albumin/Globulin Ratio Pending Triglycerides Pending Lipase Beta-Hydroxybutyrate 12/17/21 12/17/21 10:48 10:48 WBC 22.0 H RBC 3.80 Hgb 11.0 L Hct 35.6 MCV 93.7 MCH 28.9 MCHC 30.9 L RDW 17.3 H Plt Count 448 H MPV 9.3 Neut % (Auto) 92.1 H Lymph % (Auto) 2.6 L [place] % (Auto) 5.1 Eos % (Auto) 0 Baso % (Auto) 0.2 Lymph # (Auto) 0.57 L [place] # (Auto) 1.13 H Eos # (Auto) 0 Baso # (Auto) 0.05 Absolute Neutrophils 20.28 H ABG Methemoglobin VBG pH VBG pCO2 VBG pO2 VBG HCO3 VBG Total CO2 VBG O2 Saturation VBG Base Excess VBG Lactic Acid Carboxyhemoglobin Total Hemoglobin Sodium 131 L Potassium 3.9 Chloride 90 L Carbon Dioxide 11 L Anion Gap 30.0 H BUN 38 H Creatinine 2.0 H GFR Calculation 22 Glucose 639 H* Uric Acid Calcium 8.8 Phosphorus Magnesium 2.0 Total Bilirubin 0.2 Direct Bilirubin GGT AST 25 ALT 41 H Alkaline Phosphatase 130 H Lactate Dehydrogenase Total Protein 5.8 L Albumin 3.4 Globulin 2.4 Albumin/Globulin Ratio 1.4 Triglycerides Lipase 1082 H Beta-Hydroxybutyrate 4.10 H A/P Narrative A/P Narrative: A: *DKA: Unknown etiology, she is at nursing facility so delivering medication should not be an issue expect -Infections to be ruled out -A1c 9.4 *Hypotension: 2/2 above *AG Met Acidosis w/Severe Lactic acidosis: 2/2 above *Encephalopathy, metabolic, superimposed on underlying dementia: *CHATO on CKD III: *Leukocytosis: reactive vs infectious *SIRS vs Sepsis: 2/2 above *Elevated lipase: as a consequence of DKA but r/o pancreatitis *Dementia, Advanced with difficulty with recall, critical thinking and daily activities: -At risk for delirium *Depression/anxiety: *GERD: P: -inuslin gtt (regimen at home was lantus 30 qam and Aspart 5 w/meal + SSI) -Monitor electrolytes -Monitor urine output and fluid balance -UA and CT a/p pending -Delirium precautions -pt/ot -Home medication reconciliation -referral to endocrinology -ppx: lovenox /home PPI DNR Time Spent With Patient Time: Total time spent is greater than 50% in coordination of care (as documented) at patient's floor/unit and/or counseling patient: Critical Care Time: Yes Total Critical Care Time: 70
[2021-12-17 14:00] LABS: Hemoglobin A1C 9.4 % Hgb (4.0-6.0)
--- NOTE | 2021-12-17 14:04 | Cat Scan Report ---
CLINICAL INFORMATION: Elevated blood glucose lipase and leukocytosis. COMPARISON: Abdomen and pelvic CT 08/30/2018 and 12/07/2021 TECHNIQUE: 0.625 mm helical slices were obtained from the mid heart through the subtrochanteric regions. Following reconstruction, 2.5 mm sagittal, coronal and axial reformatted images were processed and reviewed at bone and soft tissue windows.The exam was performed using radiation dose optimization techniques including, but not limited to, automated exposure control, adjustment of the mA and/or kV according to patient size and use of iterative reconstruction technique. FINDINGS: The lung bases are now clear. No effusions. The visualized heart is mildly enlarged with mitral annular calcifications, as previously seen Abdominal images show the noncontrasted gallbladder and bile ducts, liver, both kidneys, adrenal glands, spleen, pancreas and aorta are normal in size, configuration and attenuation without focal lesion. There is no free air, free fluid or adenopathy. Pelvic images show mild diffuse wall thickening of urinary bladder which has decreased from previous exam. There is mild wall thickening of the distal sigmoid and rectum mild inflammation of the perirectal fat compatible with mild bronchitis. This has improved. The remaining large bowel, appendix region, small bowel and stomach are grossly normal. Moderate symmetric dilatation of the GI tract is compatible with moderate ileus. Bone windows show moderate chronic T12 compression fracture with 6 mm retrolisthesis stable. A right intertrochanteric fracture is transfixed by gamma nail. It remains nonunified. Alignment is near-anatomic however. IMPRESSION: 1. Mild proctitis-improved. 2. Mild ileus 3. Mild urinary bladder wall distention was also improved. The patient may have had cystitis. 4. Moderate chronic T12 compression fracture with slight retrolisthesis-stable. 5. Ununified old intertrochanteric right hip fracture transfixed by gamma nail and screw. 6. Interval resolution of CHF pattern and bilateral pleural effusions. Interpreted and Authenticated by: Jesus Jennings 12/17/21
[2021-12-17 14:07] LABS: ALT/SGPT 40 U/L (<40); AST/SGOT 27 U/L (<32); Albumin 3.4 gm/dL (3.2-5.2); Albumin/Globulin Ratio 1.3 (1.0-2.3); Alkaline Phosphatase 136 U/L (39-117); Bilirubin,Direct < 0.2 mg/dL (0-0.3); Bilirubin,Total 0.2 mg/dL (0.1-1.0); Blood Urea Nitrogen 35 mg/dL (8-23); Calcium 8.9 mg/dL (8.6-10.4); Carbon Dioxide 18 mmol/L (22-30); Chloride 96 mmol/L (96-108); Globulin 2.7 gm/dL (2.2-3.7); Glomerular Filtration Rate 29; Glucose 389 mg/dL (70-105); Lactate Dehydrogenase 223 U/L (135-225); Phosphorous 2.9 mg/dL (2.5-4.5); Triglycerides 107 mg/dL (<150); Uric Acid 7.4 mg/dL (2.5-8.0)
[2021-12-17 14:08] LABS: Anisocytosis 1+ (None Seen); Band Neutrophils % 5 % (0-10); Lymphocytes % 7 % (15-49); Metamyelocytes % 1 %; Monocytes % (Manual) 6 % (1-12); Myelocytes % 1 %; Platelet Estimate INCREASED (Normal); RBC Morphology ABNORMAL (Normal); Segmented Neutrophils % 80 % (38-78)
[2021-12-17] MEDS ORDERED: ONDANSETRON 4 MG/2 ML VIAL IV PRN (15:24)
[2021-12-17] MEDS ORDERED: 0.9 % SODIUM CHLORIDE 1,000 ML IV SCH (15:24)
[2021-12-17] MEDS ORDERED: MINERAL OIL 1 DOSE ENEMA PR PRN (15:24)
[2021-12-17] MEDS ORDERED: POLYETHYLENE GLYCOL 3350 17 GM PACKET PO PRN (15:24)
[2021-12-17] MEDS ORDERED: IPRATROPIUM/ALBUTEROL 3 ML AMPUL.NEB NEB PRN (15:24)
[2021-12-17] MEDS ORDERED: POTASSIUM CHLORIDE 40 MEQ in DEXTROSE 5% IN WATER 500 ML IV PRN (15:24)
[2021-12-17] MEDS ORDERED: MAGNESIUM SULFATE 2 GM/50 ML BAG IV PRN (15:24)
[2021-12-17] MEDS ORDERED: ACETAMINOPHEN 325 MG TABLET PO PRN (15:24)
[2021-12-17] MEDS ORDERED: SENNOSIDES 1 TABLET PO PRN (15:24)
[2021-12-17] MEDS ORDERED: POTASSIUM CHLORIDE 20 MEQ TABLET PO PRN ×2 (15:24)
[2021-12-17 15:46] LABS: Appearance,Urine CLOUDY (Clear); Bilirubin,Urine Negative (Negative); Color,Urine YELLOW; Culture Indicated,Urine No; Glucose,Urine (UA) >=500 mg/dL (Negative); Ketones,Urine 20 mg/dL (Negative); Leukocyte Esterase,Urine 75 /uL (Negative); Mucus,Urine FEW /hpf; Nitrate,Urine Negative (Negative); Protein,Urine Negative (Negative); Specific Gravity,Urine 1.021 (1.000-1.035); Urine Blood Negative (Negative); Urine Budding Yeast MANY /hpf; Urine Hyaline Cast 22 /lph (0-2); Urine RBC 5 /hpf (0-3); Urine Squamous Epithelial Cell 7 /hpf (0-4); Urine WBC 21 /hpf (0-4); Urobilinogen,Urine Negative
[2021-12-17] MEDS: DEXTROSE 5%-NS 1,000 ML IV SCH (17:14)
[2021-12-17] MEDS ORDERED: DEXTROSE 50% 50 ML SYRINGE IV ONE ×3 (18:06→20:36)
[2021-12-17] MEDS: BISACODYL 10 MG SUPP.RECT PR SCH (20:52)
[2021-12-17] MEDS: DOCUSATE SODIUM 100 MG CAPSULE PO SCH (20:52)
[2021-12-17] MEDS: TAMSULOSIN 0.4 MG CAPSULE PO SCH (21:05)
[2021-12-17] MEDS: traZODone HCL 150 MG TABLET PO SCH (21:05)
[2021-12-17] MEDS: MELATONIN 3 MG TABLET PO SCH (21:05)
[2021-12-17] MEDS: 0.9 % SODIUM CHLORIDE 10 ML SYRINGE IV SCH (22:07)
[2021-12-17] MEDS: FLUCONAZOLE 150 MG TABLET PO SCH (23:16)
[2021-12-17] MEDS: CLOTRIMAZOLE VAG CRM 1% TUBE 45 GM VAG SCH (23:17)
[2021-12-18] MEDS: DEXTROSE 5%-NS 1,000 ML IV SCH ×3 (00:08→08:20)
[2021-12-18] MEDS ORDERED: DEXTROSE 50% 50 ML SYRINGE IV ONE (05:00)
[2021-12-18] MEDS: 0.9 % SODIUM CHLORIDE 10 ML SYRINGE IV SCH ×3 (05:15→20:27)
[2021-12-18 06:33] LABS: Basophils # (Auto) 0.03 K/mcL (0.00-0.30); Basophils % (Auto) 0.2 % (0.0-2.0); Eosinophils # (Auto) 0 K/mcL (0.00-0.70); Eosinophils % (Auto) 0 % (0.0-7.0); Hematocrit 28.6 % (34.1-44.9); Hemoglobin 9.3 g/dL (11.2-15.7); Lymphocytes # (Auto) 1.75 K/mcL (1.50-4.80); Mean Cell Volume 88.3 fL (80.0-100.0); Mean Corpuscular HGB Conc 32.5 g/dL (31.0-36.0); Mean Platelet Volume 9.3 fL (7.4-10.4); Monocytes # (Auto) 0.84 K/mcL (0.10-0.90); Monocytes % (Auto) 5.7 % (1.0-12.0); Neutrophils % (Auto) 82.1 % (38.0-78.0); Platelet Count 373 K/mcL (140-440); RBC 3.24 M/mcL (3.59-5.38); Red Cell Distribution Width 17.7 % (11.5-14.5); WBC 14.6 K/mcL (4.5-11.0)
[2021-12-18 07:01] LABS: ALT/SGPT 52 U/L (<40); AST/SGOT 79 U/L (<32); Albumin 2.7 gm/dL (3.2-5.2); Albumin/Globulin Ratio 1.2 (1.0-2.3); Alkaline Phosphatase 107 U/L (39-117); Beta Hydroxybutyrate 0.08 mmol/L (<0.27); Bilirubin,Direct < 0.2 mg/dL (0-0.3); Bilirubin,Total 0.2 mg/dL (0.1-1.0); Blood Urea Nitrogen 22 mg/dL (8-23); Calcium 7.9 mg/dL (8.6-10.4); Carbon Dioxide 22 mmol/L (22-30); Chloride 108 mmol/L (96-108); Globulin 2.2 gm/dL (2.2-3.7); Glomerular Filtration Rate 59; Glucose 91 mg/dL (70-105); Lactate Dehydrogenase 232 U/L (135-225); Phosphorous 2.1 mg/dL (2.5-4.5); Triglycerides 99 mg/dL (<150); Uric Acid 5.7 mg/dL (2.5-8.0)
[2021-12-18] MEDS: OMEPRAZOLE 20 MG CAPSULE PO SCH (07:03)
[2021-12-18] MEDS ORDERED: DEXTROSE 50% 50 ML VIAL IV PRN (07:54)
[2021-12-18] MEDS ORDERED: DEXTROSE 31 GM ORAL.SUSP PO PRN (07:54)
--- NOTE | 2021-12-18 07:56 | Internal Med Progress Note ---
SUBJECTIVE Subjective Patient information: Note initiated : 12/18/21 at 7:49 am Service Date, if different from initiated Date: [] Patient: Janay Kratf a 81 y/o F admitted on 12/17/21 for gerry blood glucose. Chief Complaint: [] Interval history: History of present illness: Ms. Kraft is a 81 year old F Presents the ED with elevated blood glucose. Patient has history of dementia and resides in a nursing facility. She was admitted in the hospital a week and a half ago for DKA felt to be precipitated by UTI. She was in the hospital for 3 days. She was also in the hospital in July for right hip fracture. Patient is a poor historian and history is obtained from chart and family. The daughter says that the patient is able to carry on a conversation when she is at baseline. Daughter does not recall her being sick recently or having any complaints other than she did have nausea yesterday. Insulin regimen was 30 units of long-acting at night with 5 units at mealtime and sliding scale coverage on top of that. She was being transitioned to 30 units in the morning and then continue with 5 units at meal with sliding scale. However they were going to adjust her long- acting from 30 to 35. Diana states that she has been a brittle diabetic over the years but mostly with high blood glucose. In the ED she initially vital signs that were tachycardic in the 120s tachypneic and she did low blood pressures initially. Chemistry significant for acidosis on labs and blood gas. Significantly elevated lactate at 8.2 blood glucose 640 and acute kidney injury. Leukocytosis noted. Lipase is elevated but she does not seem to have any abdominal pain, likely secondary to DKA as opposed to pancreatitis. Patient was given generous IV fluid and started on insulin drip in the ED. Urinalysis pending. CT abdomen pelvis pending. 12/18 Patient sitting up in chair. Much more communicative today. Will transition from insulin drip to subcu insulin and titrate as needed. Patient states poor sleep due to bed. Transaminitis. Suspected urinary tract infection. Review of Systems: denies headache/fever/chills/nausea/vomiting/chest or abdominal pain/cough/dyspnea/diarrhea. Otherwise see above. Constitutional Vitals: Vital Signs Temp Pulse Resp BP Pulse Ox 98.9 F 79 14 108/49 92 12/18/21 07:01 12/18/21 07:01 12/18/21 07:01 12/18/21 07:01 12/18/21 07:01 Period Temp Pulse Resp BP Sys/Mckenna Pulse Ox Last 24 Hr 98.4 F-99.7 F 64-125 0-41 85-136/35-78 88-100 Intake and Output 12/17/21 12/18/21 12/18/21 21:59 05:59 13:59 Intake Total 1565 1431 4 Output Total 325 300 Balance 1240 1131 4 Weight 49.033 kg Intake & Output: Intake & Output 12/17/21 12/18/21 12/18/21 21:59 05:59 13:59 Intake Total 1565 1431 4 Output Total 325 300 Balance 1240 1131 4 Weight 49.033 kg Intake: IV 1565 1031 4 Sodium Chloride 0.9% 1,000 ml @ 1000 Wide Open IV BOLUS ONE Rx#: [id number] Dextrose 5%-Ns IV Solution 1, 1000 000 ml @ 150 mls/hr IV .Q6H40M [facility] Rx#:[id number] HumuLIN R 50 UNIT In Sodium 55 31 4 Chloride 0.9% 99.5 ml @ 5 UNIT/ HR 10 mls/hr IV DUR [facility] Rx#: [id number] Potassium Chloride 20 Meq In 260 Dextrose 5% in Water 250 ml @ 130 mls/hr IV ONCE ONE Rx#: [id number] Vancomycin 1,000 mg In Sodium 250 Chloride 0.9% 250 ml @ 250 mls/ hr IV ONCE ONE Rx#:[id number] Oral 400 Output: Urine Catheter Amount 325 300 Other: Urine Appearance Cloudy Cloudy Sediment Uretheral ([place]ays) Cloudy Sediment Urine Color Dark Yellow Straw Uretheral ([place]) Dark Yellow Urine Odor Strong Stool Size Large Stool Color Brown Stool Consistency Soft Exam: General: Alert, Awake, No acute Distress Eyes/N/T: EOMI, Head/Neck: neck supple, CV: RRR, No murmurs, Pulm: Clear b/l, no wheezing/rhonchi/rales Abd: soft, nontender, +BS x4 Ext: no clubbing/cyanosis/edema Neuro: Alert and awake, follows commands. move extremities spontaneously. Able to carry on a conversation now. Skin: warm/dry OBJ DATA Labs CBC & Chem 7: 12/18/21 05:14 12/18/21 05:14 Labs: Abnormal Lab Results 12/18/21 12/18/21 12/18/21 05:14 05:14 05:14 WBC 14.6 H RBC 3.24 L Hgb 9.3 L Hct 28.6 L MCHC RDW 17.7 H Plt Count Neut % (Auto) 82.1 H Lymph % (Auto) 12.0 L Lymph # (Auto) [place] # (Auto) Seg Neutrophils % Lymphocytes % Absolute Neutrophils 12.02 H Platelet Estimate RBC Morphology Anisocytosis ABG Methemoglobin VBG pH VBG pCO2 VBG pO2 VBG HCO3 VBG Total CO2 VBG O2 Saturation VBG Base Excess VBG Lactic Acid 2.1 H Carboxyhemoglobin Sodium Chloride Carbon Dioxide Anion Gap BUN Creatinine Glucose Hemoglobin A1c Calcium 7.9 L Phosphorus 2.1 L GGT 68 H AST 79 H ALT 52 H Alkaline Phosphatase Lactate Dehydrogenase 232 H Total Protein 4.9 L Albumin 2.7 L Lipase 495 H Beta-Hydroxybutyrate Urine Appearance Urine Glucose (UA) Urine Ketones Ur Leukocyte Esterase Urine RBC Urine WBC Ur Squamous Epith Cells Hyaline Casts Urine Mucus Urine Yeast (Budding) 12/17/21 12/17/21 12/17/21 14:45 13:21 13:21 WBC RBC Hgb Hct MCHC RDW Plt Count Neut % (Auto) Lymph % (Auto) Lymph # (Auto) [place] # (Auto) Seg Neutrophils % 80 H Lymphocytes % 7 L Absolute Neutrophils Platelet Estimate Increased A RBC Morphology Abnormal A Anisocytosis 1+ A ABG Methemoglobin VBG pH VBG pCO2 VBG pO2 VBG HCO3 VBG Total CO2 VBG O2 Saturation VBG Base Excess VBG Lactic Acid Carboxyhemoglobin Sodium Chloride Carbon Dioxide Anion Gap BUN Creatinine Glucose Hemoglobin A1c 9.4 H Calcium Phosphorus GGT AST ALT Alkaline Phosphatase Lactate Dehydrogenase Total Protein Albumin Lipase Beta-Hydroxybutyrate Urine Appearance Cloudy A Urine Glucose (UA) >=500 A Urine Ketones 20 A Ur Leukocyte Esterase 75 A Urine RBC 5 H Urine WBC 21 H Ur Squamous Epith Cells 7 H Hyaline Casts 22 H Urine Mucus Few A Urine Yeast (Budding) Many A 12/17/21 12/17/21 12/17/21 12:55 10:48 10:48 WBC RBC Hgb Hct MCHC RDW Plt Count Neut % (Auto) Lymph % (Auto) Lymph # (Auto) [place] # (Auto) Seg Neutrophils % Lymphocytes % Absolute Neutrophils Platelet Estimate RBC Morphology Anisocytosis ABG Methemoglobin 0.3 L VBG pH 7.30 L VBG pCO2 25.1 L VBG pO2 65.6 H VBG HCO3 12.1 L VBG Total CO2 12.9 L VBG O2 Saturation 89.2 H VBG Base Excess -13 L VBG Lactic Acid 8.2 H* Carboxyhemoglobin 3.6 H Sodium 132 L Chloride Carbon Dioxide 18 L Anion Gap 18.0 H BUN 35 H Creatinine 1.6 H Glucose 389 H Hemoglobin A1c Calcium Phosphorus GGT 73 H AST ALT 40 H Alkaline Phosphatase 136 H Lactate Dehydrogenase Total Protein Albumin Lipase Beta-Hydroxybutyrate Urine Appearance Urine Glucose (UA) Urine Ketones Ur Leukocyte Esterase Urine RBC Urine WBC Ur Squamous Epith Cells Hyaline Casts Urine Mucus Urine Yeast (Budding) 12/17/21 12/17/21 10:48 10:48 WBC 22.0 H RBC Hgb 11.0 L Hct MCHC 30.9 L RDW 17.3 H Plt Count 448 H Neut % (Auto) 92.1 H Lymph % (Auto) 2.6 L Lymph # (Auto) 0.57 L [place] # (Auto) 1.13 H Seg Neutrophils % Lymphocytes % Absolute Neutrophils 20.28 H Platelet Estimate RBC Morphology Anisocytosis ABG Methemoglobin VBG pH VBG pCO2 VBG pO2 VBG HCO3 VBG Total CO2 VBG O2 Saturation VBG Base Excess VBG Lactic Acid Carboxyhemoglobin Sodium 131 L Chloride 90 L Carbon Dioxide 11 L Anion Gap 30.0 H BUN 38 H Creatinine 2.0 H Glucose 639 H* Hemoglobin A1c Calcium Phosphorus GGT AST ALT 41 H Alkaline Phosphatase 130 H Lactate Dehydrogenase Total Protein 5.8 L Albumin Lipase 1082 H Beta-Hydroxybutyrate 4.10 H Urine Appearance Urine Glucose (UA) Urine Ketones Ur Leukocyte Esterase Urine RBC Urine WBC Ur Squamous Epith Cells Hyaline Casts Urine Mucus Urine Yeast (Budding) Meds: Medications Acetaminophen (Acetaminophen 325 Mg Tablet) 650 mg PO Q6HP PRN; Protocol PRN Reason: Per Pain Protocol/Fever > 101 Hydrocodone Bitart/Acetaminophen (Hydrocodone/Apap 10/325mg Tablet) 1 tab PO Q4HP PRN; Protocol PRN Reason: Pain Albuterol/Ipratropium (Ipratropium/Albuterol 3 Ml Ampul.Neb) 3 ml NEB Q4HP PRN PRN Reason: Shortness Of Breath Bisacodyl (Bisacodyl 10 Mg Supp.Rect) 10 mg AR HS [facility] Last Admin: 12/17/21 20:52 Dose: Not Given Documented by: Citalopram Hydrobromide (Citalopram 20 Mg Tablet) 20 mg PO QDAY [facility] Clotrimazole (Clotrimazole Vag Crm 1% Tube 45 Gm) 1 appful VAG HS [facility] Last Admin: 12/17/21 23:17 Dose: 1 appful Documented by: Diagnostic Test (Pha) (Accu-Chek 1 Each Strip) 1 each FS Q1 [facility] Last Admin: 12/18/21 07:03 Dose: 1 each Documented by: Docusate Sodium (Docusate Sodium 100 Mg Capsule) 100 mg PO BID [facility] Last Admin: 12/17/21 20:52 Dose: Not Given Documented by: Enoxaparin Sodium (Enoxaparin 30 Mg/0.3 Ml Syringe) 30 mg SQ DAILY [facility] Fluconazole (Fluconazole 150 Mg Tablet) 150 mg PO Q72 [facility]; Protocol Stop: 12/23/21 10:01 Last Admin: 12/17/21 23:16 Dose: 150 mg Documented by: Potassium Chloride 40 meq/ (Dextrose) 520 mls @ 130 mls/hr IV UD PRN PRN Reason: Potassium < 3 Magnesium Sulfate (Magnesium Sulfate) 2 gm in 50 mls @ 50 mls/hr IV UD PRN PRN Reason: Magnesium </= 1.6 Insulin Human Regular 50 unit/ (Sodium Chloride) 100 mls @ 10 mls/hr IV DUR [facility]; Protocol Dextrose/Sodium Chloride (Dextrose 5%-Ns Iv Solution) 1,000 mls @ 150 mls/hr IV .Q6H40M [facility] Last Admin: 12/18/21 01:10 Dose: 150 mls/hr Documented by: Melatonin (Melatonin 3 Mg Tablet) 3 mg PO HS [facility] Last Admin: 12/17/21 21:05 Dose: 3 mg Documented by: Mineral Oil (Mineral Oil 1 Dose Enema) 1 dose AR DAILYP PRN PRN Reason: Constipation Omeprazole (Omeprazole 20 Mg Capsule) 20 mg PO ACB [facility] Last Admin: 12/18/21 07:03 Dose: 20 mg Documented by: Ondansetron HCl (Ondansetron 4 Mg/2 Ml Vial) 4 mg IV Q4HP PRN PRN Reason: Nausea And Vomiting Methenamine Hippurate 1 Gram Tablet 1 dose PO BID [facility] Last Admin: 12/17/21 21:29 Dose: Not Given Documented by: Polyethylene Glycol (Polyethylene Glycol 3350 17 Gm Packet) 17 gm PO DAILYP PRN PRN Reason: Constipation Potassium Chloride (Potassium Chloride 20 Meq Tablet) 40 meq PO UD PRN PRN Reason: Potssium is 3-3.5 Last Admin: 12/18/21 07:09 Dose: 40 meq Documented by: Potassium Chloride (Potassium Chloride 20 Meq Tablet) 40 meq PO UD PRN PRN Reason: Potassium < 3 Senna (Sennosides 1 Tablet) 2 tab PO DAILYP PRN PRN Reason: Constipation Sodium Chloride (0.9 % Sodium Chloride 10 Ml Syringe) 10 ml IV Q8 [facility] Last Admin: 12/18/21 05:15 Dose: 10 ml Documented by: Tamsulosin HCl (Tamsulosin 0.4 Mg Capsule) 0.4 mg PO [facility] Last Admin: 12/17/21 21:05 Dose: 0.4 mg Documented by: Trazodone HCl (Trazodone Hcl 150 Mg Tablet) 150 mg PO [facility] Last Admin: 12/17/21 21:05 Dose: 150 mg Documented by: ABG Interpretation ABG results: 12/17/21 10:48 ABG Methemoglobin 0.3 L VBG pH 7.30 L VBG pCO2 25.1 L VBG pO2 65.6 H VBG HCO3 12.1 L VBG Total CO2 12.9 L VBG O2 Saturation 89.2 H VBG Base Excess -13 L A/P Narrative A/P Narrative: A: *DKA: suspect 2/2 UTI, pt also brittle diabetic. She's at nursing facility so delivering medication should not be an issue -A1c 9.4 *Hypotension: 2/2 above, resolved in ED *AG Met Acidosis w/Severe Lactic acidosis: 2/2 above, improved *Encephalopathy, metabolic, superimposed on underlying dementia: improving *CHATO on CKD III: improved *Leukocytosis: reactive vs infectious *SIRS vs Sepsis: 2/2 above *Elevated lipase: as a consequence of DKA, no pancreatitis per imaging *Dementia, Advanced with difficulty with recall, critical thinking and daily activities: -At risk for delirium *Depression/anxiety: *GERD: P: -inuslin gtt to SQ insulin and SSI (regimen at home was lantus 30 qam and Aspart 5 w/meal + SSI) -Titrate diabetes regimen -Monitor electrolytes -Monitor urine output and fluid balance -Rocephing pending UC -Delirium precautions -pt/ot -consider referral to endocrinology if she gets admitted with DKA again -ppx: lovenox /home PPI DNR Time Spent With Patient Time: Total time spent is greater than 50% in coordination of care (as documented) at patient's floor/unit and/or counseling patient: Total time spent with greater than 50% in coordination of care (as documented) at patient's floor/unit and/or counseling patient:: 25 - 35 minutes QUALITY VTE Deep Vein Thrombosis/Pulmonary Embolism Present on Admission: No
[2021-12-18] MEDS: INSULIN GLARGINE, HUMAN 1 UNIT/0.01 ML SQ SCH ×2 (08:21→09:08)
[2021-12-18] MEDS: DOCUSATE SODIUM 100 MG CAPSULE PO SCH ×2 (08:21→20:28)
[2021-12-18] MEDS: NEUTRA PHOS 1 PACKET PO SCH ×2 (08:21→20:25)
[2021-12-18] MEDS: ENOXAPARIN 30 MG/0.3 ML SYRINGE SQ SCH (08:21)
[2021-12-18] MEDS: CITALOPRAM 20 MG TABLET PO SCH (08:21)
[2021-12-18] MEDS: cefTRIAXone 1 GM VIAL IV SCH (08:25)
[2021-12-18] MEDS ORDERED: INSULIN LISPRO 1 UNIT/0.01 ML UNIT SQ ONE (10:30)
[2021-12-18] MEDS: INSULIN LISPRO 1 UNIT/0.01 ML UNIT SQ SCH ×3 (11:46→20:25)
[2021-12-18] MEDS: HYDROcodone/APAP 10/325MG TABLET PO PRN ×2 (12:48→19:47)
[2021-12-18] MEDS: traZODone HCL 150 MG TABLET PO SCH (20:25)
[2021-12-18] MEDS: TAMSULOSIN 0.4 MG CAPSULE PO SCH (20:25)
[2021-12-18] MEDS: MELATONIN 3 MG TABLET PO SCH (20:25)
[2021-12-18] MEDS: BISACODYL 10 MG SUPP.RECT PR SCH (20:26)
[2021-12-18] MEDS: CLOTRIMAZOLE VAG CRM 1% TUBE 45 GM VAG SCH (20:27)
[2021-12-19] MEDS: 0.9 % SODIUM CHLORIDE 10 ML SYRINGE IV SCH ×3 (04:40→21:42)
[2021-12-19 06:33] LABS: Basophils # (Auto) 0.01 K/mcL (0.00-0.30); Basophils % (Auto) 0.2 % (0.0-2.0); Eosinophils # (Auto) 0.01 K/mcL (0.00-0.70); Eosinophils % (Auto) 0.2 % (0.0-7.0); Hematocrit 31.4 % (34.1-44.9); Hemoglobin 9.8 g/dL (11.2-15.7); Lymphocytes # (Auto) 1.67 K/mcL (1.50-4.80); Lymphocytes % (Auto) 28.4 % (15.5-49.0); Mean Cell Volume 90.8 fL (80.0-100.0); Mean Corpuscular HGB Conc 31.2 g/dL (31.0-36.0); Mean Platelet Volume 9.4 fL (7.4-10.4); Monocytes # (Auto) 0.29 K/mcL (0.10-0.90); Monocytes % (Auto) 4.9 % (1.0-12.0); Neutrophils % (Auto) 66.3 % (38.0-78.0); Platelet Count 345 K/mcL (140-440); RBC 3.46 M/mcL (3.59-5.38); Red Cell Distribution Width 18.6 % (11.5-14.5); WBC 5.9 K/mcL (4.5-11.0)
[2021-12-19 06:55] LABS: ALT/SGPT 60 U/L (<40); AST/SGOT 95 U/L (<32); Albumin 2.7 gm/dL (3.2-5.2); Albumin/Globulin Ratio 1.2 (1.0-2.3); Alkaline Phosphatase 124 U/L (39-117); Bilirubin,Direct < 0.2 mg/dL (0-0.3); Bilirubin,Total 0.2 mg/dL (0.1-1.0); Blood Urea Nitrogen 8 mg/dL (8-23); Calcium 8.6 mg/dL (8.6-10.4); Carbon Dioxide 26 mmol/L (22-30); Chloride 109 mmol/L (96-108); Globulin 2.3 gm/dL (2.2-3.7); Glomerular Filtration Rate 80; Glucose 48 mg/dL (70-105); Lactate Dehydrogenase 238 U/L (135-225); Triglycerides 191 mg/dL (<150)
--- NOTE | 2021-12-19 07:07 | EKG ---
[facility] Test Date: 2021-12-17 Pat Name: Janay Kraft Department: ED Room: Gender: Female [employer]: DANIELITO : 1940 Requested By: Bimal Cervantes Order Number: [id number] Reading MD: Billy Sneed Measurements Intervals [place] Rate: 120 P: 72 [place]: 121 QRS: -52 QRSD: 86 T: 87 QT: 444 QTc: 628 Interpretive Statements Sinus tachycardia Electronically Signed On 12-19-2021 7:06:56 PDT by Billy Sneed /store/M0/[id number]
[2021-12-19] MEDS: OMEPRAZOLE 20 MG CAPSULE PO SCH (07:12)
[2021-12-19] MEDS: INSULIN LISPRO 1 UNIT/0.01 ML UNIT SQ SCH ×4 (07:37→22:13)
[2021-12-19] MEDS: CITALOPRAM 20 MG TABLET PO SCH (09:59)
[2021-12-19] MEDS: INSULIN GLARGINE, HUMAN 1 UNIT/0.01 ML SQ SCH (09:59)
[2021-12-19] MEDS: cefTRIAXone 1 GM VIAL IV SCH (09:59)
[2021-12-19] MEDS: DOCUSATE SODIUM 100 MG CAPSULE PO SCH ×2 (10:00→21:42)
[2021-12-19] MEDS: ENOXAPARIN 30 MG/0.3 ML SYRINGE SQ SCH (10:00)
--- NOTE | 2021-12-19 11:19 | Internal Med Progress Note ---
SUBJECTIVE Subjective Patient information: Note initiated : 12/19/21 at 11:17 am Service Date, if different from initiated Date: [] Patient: Janay Kraft a 81 y/o F admitted on 12/17/21 for gerry blood glucose. Chief Complaint: [] Interval history: Ms. Kraft is a 81 year old F Presents the ED with elevated blood glucose. Patient has history of dementia and resides in a nursing facility. She was admitted in the hospital a week and a half ago for DKA felt to be precipitated by UTI. She was in the hospital for 3 days. She was also in the hospital in July for right hip fracture. Patient is a poor historian and history is obtained from chart and family. The daughter says that the patient is able to carry on a conversation when she is at baseline. Daughter does not recall her being sick recently or having any complaints other than she did have nausea yesterday. Insulin regimen was 30 units of long-acting at night with 5 units at mealtime and sliding scale coverage on top of that. She was being transitioned to 30 units in the morning and then continue with 5 units at meal with sliding scale. However they were going to adjust her long- acting from 30 to 35. Diana states that she has been a brittle diabetic over the years but mostly with high blood glucose. In the ED she initially vital signs that were tachycardic in the 120s tachypneic and she did low blood pressures initially. Chemistry significant for acidosis on labs and blood gas. Significantly elevated lactate at 8.2 blood glucose 640 and acute kidney injury. Leukocytosis noted. Lipase is elevated but she does not seem to have any abdominal pain, likely secondary to DKA as opposed to pancreatitis. Patient was given generous IV fluid and started on insulin drip in the ED. Urinalysis pending. CT abdomen pelvis pending. 12/18 Patient sitting up in chair. Much more communicative today. Will transition from insulin drip to subcu insulin and titrate as needed. Patient states poor sleep due to bed. Transaminitis. Suspected urinary tract infection. 12/19 Blood sugar was 45 this morning and decrease the Lantus to 18 units Follow sliding scale Pending urine culture Continue ceftriaxone Review of system otherwise unremarkable Pertinent ROS: Review of system unremarkable no chest symptoms no abdominal symptoms alert oriented x2 Constitutional Vitals: Vital Signs Temp Pulse Resp BP Pulse Ox 98.8 F 83 22 167/87 92 12/19/21 07:16 12/19/21 07:16 12/19/21 07:16 12/19/21 07:16 12/19/21 07:16 Period Temp Pulse Resp BP Sys/Mckenna Pulse Ox Last 24 Hr 98 F-99.3 F 77-85 - 123-167/59-87 91-99 Intake and Output 12/18/21 12/19/21 12/19/21 21:59 05:59 13:59 Intake Total 1000 120 Output Total 200 900 Balance 800 -900 120 Weight 112 lb Intake & Output: Intake & Output 12/18/21 12/19/21 12/19/21 21:59 05:59 13:59 Intake Total 1000 120 Output Total 200 900 Balance 800 -900 120 Weight 112 lb Intake: Oral 1000 120 Output: Urine Catheter Amount 200 900 Other: Meal Dinner Breakfast Percent of Meal Consumed 65 50% Feeding Ability Needs Supervision Urine Appearance Sediment Clear Uretheral (Mays) Sediment Sediment Urine Color Bright Yellow Pale Uretheral (Mays) Straw # Voids 1 General appearance: cooperative and no acute distress Head Head exam: Present atraumatic and normal inspection Eye Eye exam: Present EOMI; Absent periorbital swelling or scleral icterus ENT ENT exam: Present mucous membranes moist and normal oropharynx Neck Neck exam: Present full ROM and normal inspection Respiratory Respiratory exam: Present normal respiratory exam and CTAB; Absent accessory muscle use Cardiovascular Cardiovascular exam: Absent bradycardia, +S3, +S4 or tachycardia GI/Abdominal GI/Abdominal exam: Present normal bowel sounds and soft; Absent distended Back Exam Back exam: Absent CVA tenderness (L) or CVA tenderness (R) Neurological Exam Neurological exam: Present alert and reflexes normal; Absent motor sensory deficit Additional comments: ox2 OBJ DATA Labs CBC & Chem 7: 12/19/21 04:57 12/19/21 04:57 Labs: Abnormal Lab Results 12/19/21 12/19/21 12/18/21 04:57 04:57 05:14 WBC RBC 3.46 L Hgb 9.8 L Hct 31.4 L MCHC RDW 18.6 H Plt Count Neut % (Auto) Lymph % (Auto) Lymph # (Auto) [place] # (Auto) Seg Neutrophils % Lymphocytes % Absolute Neutrophils Platelet Estimate RBC Morphology Anisocytosis ABG Methemoglobin VBG pH VBG pCO2 VBG pO2 VBG HCO3 VBG Total CO2 VBG O2 Saturation VBG Base Excess VBG Lactic Acid 2.1 H Carboxyhemoglobin Sodium Chloride 109 H Carbon Dioxide Anion Gap 5.0 L BUN Creatinine Glucose 48 L Hemoglobin A1c Calcium Phosphorus GGT 100 H AST 95 H ALT 60 H Alkaline Phosphatase 124 H Lactate Dehydrogenase 238 H Total Protein 5.0 L Albumin 2.7 L Triglycerides 191 H Lipase Beta-Hydroxybutyrate Urine Appearance Urine Glucose (UA) Urine Ketones Ur Leukocyte Esterase Urine RBC Urine WBC Ur Squamous Epith Cells Hyaline Casts Urine Mucus Urine Yeast (Budding) 12/18/21 12/18/21 12/17/21 05:14 05:14 14:45 WBC 14.6 H RBC 3.24 L Hgb 9.3 L Hct 28.6 L MCHC RDW 17.7 H Plt Count Neut % (Auto) 82.1 H Lymph % (Auto) 12.0 L Lymph # (Auto) [place] # (Auto) Seg Neutrophils % Lymphocytes % Absolute Neutrophils 12.02 H Platelet Estimate RBC Morphology Anisocytosis ABG Methemoglobin VBG pH VBG pCO2 VBG pO2 VBG HCO3 VBG Total CO2 VBG O2 Saturation VBG Base Excess VBG Lactic Acid Carboxyhemoglobin Sodium Chloride Carbon Dioxide Anion Gap BUN Creatinine Glucose Hemoglobin A1c Calcium 7.9 L Phosphorus 2.1 L GGT 68 H AST 79 H ALT 52 H Alkaline Phosphatase Lactate Dehydrogenase 232 H Total Protein 4.9 L Albumin 2.7 L Triglycerides Lipase 495 H Beta-Hydroxybutyrate Urine Appearance Cloudy A Urine Glucose (UA) >=500 A Urine Ketones 20 A Ur Leukocyte Esterase 75 A Urine RBC 5 H Urine WBC 21 H Ur Squamous Epith Cells 7 H Hyaline Casts 22 H Urine Mucus Few A Urine Yeast (Budding) Many A 12/17/21 12/17/21 12/17/21 13:21 13:21 12:55 WBC RBC Hgb Hct MCHC RDW Plt Count Neut % (Auto) Lymph % (Auto) Lymph # (Auto) [place] # (Auto) Seg Neutrophils % 80 H Lymphocytes % 7 L Absolute Neutrophils Platelet Estimate Increased A RBC Morphology Abnormal A Anisocytosis 1+ A ABG Methemoglobin VBG pH VBG pCO2 VBG pO2 VBG HCO3 VBG Total CO2 VBG O2 Saturation VBG Base Excess VBG Lactic Acid Carboxyhemoglobin Sodium 132 L Chloride Carbon Dioxide 18 L Anion Gap 18.0 H BUN 35 H Creatinine 1.6 H Glucose 389 H Hemoglobin A1c 9.4 H Calcium Phosphorus GGT 73 H AST ALT 40 H Alkaline Phosphatase 136 H Lactate Dehydrogenase Total Protein Albumin Triglycerides Lipase Beta-Hydroxybutyrate Urine Appearance Urine Glucose (UA) Urine Ketones Ur Leukocyte Esterase Urine RBC Urine WBC Ur Squamous Epith Cells Hyaline Casts Urine Mucus Urine Yeast (Budding) 12/17/21 12/17/21 12/17/21 10:48 10:48 10:48 WBC RBC Hgb Hct MCHC RDW Plt Count Neut % (Auto) Lymph % (Auto) Lymph # (Auto) [place] # (Auto) Seg Neutrophils % Lymphocytes % Absolute Neutrophils Platelet Estimate RBC Morphology Anisocytosis ABG Methemoglobin 0.3 L VBG pH 7.30 L VBG pCO2 25.1 L VBG pO2 65.6 H VBG HCO3 12.1 L VBG Total CO2 12.9 L VBG O2 Saturation 89.2 H VBG Base Excess -13 L VBG Lactic Acid 8.2 H* Carboxyhemoglobin 3.6 H Sodium 131 L Chloride 90 L Carbon Dioxide 11 L Anion Gap 30.0 H BUN 38 H Creatinine 2.0 H Glucose 639 H* Hemoglobin A1c Calcium Phosphorus GGT AST ALT 41 H Alkaline Phosphatase 130 H Lactate Dehydrogenase Total Protein 5.8 L Albumin Triglycerides Lipase 1082 H Beta-Hydroxybutyrate 4.10 H Urine Appearance Urine Glucose (UA) Urine Ketones Ur Leukocyte Esterase Urine RBC Urine WBC Ur Squamous Epith Cells Hyaline Casts Urine Mucus Urine Yeast (Budding) 12/17/21 10:48 WBC 22.0 H RBC Hgb 11.0 L Hct MCHC 30.9 L RDW 17.3 H Plt Count 448 H Neut % (Auto) 92.1 H Lymph % (Auto) 2.6 L Lymph # (Auto) 0.57 L [place] # (Auto) 1.13 H Seg Neutrophils % Lymphocytes % Absolute Neutrophils 20.28 H Platelet Estimate RBC Morphology Anisocytosis ABG Methemoglobin VBG pH VBG pCO2 VBG pO2 VBG HCO3 VBG Total CO2 VBG O2 Saturation VBG Base Excess VBG Lactic Acid Carboxyhemoglobin Sodium Chloride Carbon Dioxide Anion Gap BUN Creatinine Glucose Hemoglobin A1c Calcium Phosphorus GGT AST ALT Alkaline Phosphatase Lactate Dehydrogenase Total Protein Albumin Triglycerides Lipase Beta-Hydroxybutyrate Urine Appearance Urine Glucose (UA) Urine Ketones Ur Leukocyte Esterase Urine RBC Urine WBC Ur Squamous Epith Cells Hyaline Casts Urine Mucus Urine Yeast (Budding) Meds: Medications Acetaminophen (Acetaminophen 325 Mg Tablet) 650 mg PO Q6HP PRN; Protocol PRN Reason: Per Pain Protocol/Fever > 101 Last Admin: 12/19/21 07:12 Dose: 650 mg Documented by: Hydrocodone Bitart/Acetaminophen (Hydrocodone/Apap 10/325mg Tablet) 1 tab PO Q4HP PRN; Protocol PRN Reason: Pain Last Admin: 12/18/21 19:47 Dose: 1 tab Documented by: Albuterol/Ipratropium (Ipratropium/Albuterol 3 Ml Ampul.Neb) 3 ml NEB Q4HP PRN PRN Reason: Shortness Of Breath Bisacodyl (Bisacodyl 10 Mg Supp.Rect) 10 mg LA HS [facility] Last Admin: 12/18/21 20:26 Dose: Not Given Documented by: Ceftriaxone Sodium (Ceftriaxone 1 Gm Vial) 1 gm IV Q24H [facility]; Protocol Last Admin: 12/19/21 09:59 Dose: 1 gm Documented by: Citalopram Hydrobromide (Citalopram 20 Mg Tablet) 20 mg PO QDAY [facility] Last Admin: 12/19/21 09:59 Dose: 20 mg Documented by: Clotrimazole (Clotrimazole Vag Crm 1% Tube 45 Gm) 1 appful VAG HS [facility] Last Admin: 12/18/21 20:27 Dose: 1 appful Documented by: Dextrose (Dextrose 50% 50 Ml Vial) 0 ml IV UD PRN PRN Reason: Per Sliding Scale Diagnostic Test (Pha) (Accu-Chek 1 Each Strip) 1 each FS ACHS [facility] Last Admin: 12/19/21 07:36 Dose: 1 each Documented by: Docusate Sodium (Docusate Sodium 100 Mg Capsule) 100 mg PO BID [facility] Last Admin: 12/19/21 10:00 Dose: 100 mg Documented by: Enoxaparin Sodium (Enoxaparin 30 Mg/0.3 Ml Syringe) 30 mg SQ DAILY [facility] Last Admin: 12/19/21 10:00 Dose: 30 mg Documented by: Fluconazole (Fluconazole 150 Mg Tablet) 150 mg PO Q72 [facility]; Protocol Stop: 12/23/21 10:01 Last Admin: 12/17/21 23:16 Dose: 150 mg Documented by: Glucose (Dextrose 31 Gm Oral.Susp) 15 gm PO PRN PRN PRN Reason: Hypoglycemia Potassium Chloride 40 meq/ (Dextrose) 520 mls @ 130 mls/hr IV UD PRN PRN Reason: Potassium < 3 Magnesium Sulfate (Magnesium Sulfate) 2 gm in 50 mls @ 50 mls/hr IV UD PRN PRN Reason: Magnesium </= 1.6 Insulin Human Regular 50 unit/ (Sodium Chloride) 100 mls @ 10 mls/hr IV DUR [facility]; Protocol Insulin Glargine (Insulin Glargine, Human 1 Unit/0.01 Ml) 18 unit SQ DAILY [facility] Insulin Human Lispro (Insulin Lispro 1 Unit/0.01 Ml Unit) 0 unit SQ ACHS [facility]; Protocol Last Admin: 12/19/21 07:37 Dose: Not Given Documented by: Melatonin (Melatonin 3 Mg Tablet) [address] [facility] Last Admin: 12/18/21 20:25 Dose: 3 mg Documented by: Mineral Oil (Mineral Oil 1 Dose Enema) 1 dose LA DAILYP PRN PRN Reason: Constipation Omeprazole (Omeprazole 20 Mg Capsule) 20 mg PO ACB [facility] Last Admin: 12/19/21 07:12 Dose: 20 mg Documented by: Ondansetron HCl (Ondansetron 4 Mg/2 Ml Vial) 4 mg IV Q4HP PRN PRN Reason: Nausea And Vomiting Methenamine Hippurate 1 Gram Tablet 1 dose PO BID [facility] Last Admin: 12/19/21 10:17 Dose: Not Given Documented by: Polyethylene Glycol (Polyethylene Glycol 3350 17 Gm Packet) 17 gm PO DAILYP PRN PRN Reason: Constipation Potassium Chloride (Potassium Chloride 20 Meq Tablet) 40 meq PO UD PRN PRN Reason: Potssium is 3-3.5 Last Admin: 12/18/21 07:09 Dose: 40 meq Documented by: Potassium Chloride (Potassium Chloride 20 Meq Tablet) 40 meq PO UD PRN PRN Reason: Potassium < 3 Senna (Sennosides 1 Tablet) 2 tab PO DAILYP PRN PRN Reason: Constipation Sodium Chloride (0.9 % Sodium Chloride 10 Ml Syringe) 10 ml IV Q8 [facility] Last Admin: 12/19/21 04:40 Dose: 10 ml Documented by: Tamsulosin HCl (Tamsulosin 0.4 Mg Capsule) 0.[address] [facility] Last Admin: 12/18/21 20:25 Dose: 0.4 mg Documented by: Trazodone HCl (Trazodone Hcl 150 Mg Tablet) [address] [facility] Last Admin: 12/18/21 20:25 Dose: 150 mg Documented by: ABG Interpretation ABG results: 12/17/21 10:48 ABG Methemoglobin 0.3 L VBG pH 7.30 L VBG pCO2 25.1 L VBG pO2 65.6 H VBG HCO3 12.1 L VBG Total CO2 12.9 L VBG O2 Saturation 89.2 H VBG Base Excess -13 L A/P Narrative Plan of Treatment: *DKA: suspect 2/2 UTI, pt also brittle diabetic. She's at nursing facility so delivering medication should not be an issue -A1c 9.4 *Hypotension: 2/2 above, resolved in ED *AG Met Acidosis w/Severe Lactic acidosis: 2/2 above, improved *Encephalopathy, metabolic, superimposed on underlying dementia: improving *CHATO on CKD III: improved *Leukocytosis: reactive vs infectious *SIRS vs Sepsis: 2/2 above *Elevated lipase: as a consequence of DKA, no pancreatitis per imaging *Dementia, Advanced with difficulty with recall, critical thinking and daily activities: -At risk for delirium *Depression/anxiety: *GERD: P: -inuslin gtt to SQ insulin and SSI (regimen at home was lantus 30 qam and Aspart 5 w/meal + SSI) -Lantus dose decreased to 18 units due to hypoglycemia. Reported history of brittle diabetic -Pending urine culture continue Rocephin -Titrate diabetes regimen -Monitor electrolytes -Monitor urine output and fluid balance -Rocephing pending UC -Delirium precautions -pt/ot -consider referral to endocrinology if she gets admitted with DKA again -ppx: lovenox /home PPI DNR Time Spent With Patient Time: Total time spent is greater than 50% in coordination of care (as documented) at patient's floor/unit and/or counseling patient: QUALITY VTE Deep Vein Thrombosis/Pulmonary Embolism Present on Admission: No
[2021-12-19] MEDS: HYDROcodone/APAP 10/325MG TABLET PO PRN (19:21)
[2021-12-19] MEDS: traZODone HCL 150 MG TABLET PO SCH (21:42)
[2021-12-19] MEDS: TAMSULOSIN 0.4 MG CAPSULE PO SCH (21:42)
[2021-12-19] MEDS: BISACODYL 10 MG SUPP.RECT PR SCH (22:14)
[2021-12-19] MEDS: CLOTRIMAZOLE VAG CRM 1% TUBE 45 GM VAG SCH (22:15)
[2021-12-19] MEDS: MELATONIN 3 MG TABLET PO SCH (22:18)
[2021-12-20] MEDS: OMEPRAZOLE 20 MG CAPSULE PO SCH (07:27)
[2021-12-20] MEDS: 0.9 % SODIUM CHLORIDE 10 ML SYRINGE IV SCH ×3 (07:30→20:26)
[2021-12-20] MEDS: INSULIN LISPRO 1 UNIT/0.01 ML UNIT SQ SCH ×3 (07:32→21:15)
[2021-12-20] MEDS: DOCUSATE SODIUM 100 MG CAPSULE PO SCH ×2 (09:17→20:25)
[2021-12-20] MEDS: CITALOPRAM 20 MG TABLET PO SCH (09:17)
[2021-12-20] MEDS: ENOXAPARIN 30 MG/0.3 ML SYRINGE SQ SCH (09:17)
[2021-12-20] MEDS: FLUCONAZOLE 150 MG TABLET PO SCH (09:18)
[2021-12-20] MEDS: HYDROcodone/APAP 10/325MG TABLET PO PRN ×2 (09:18→20:25)
[2021-12-20] MEDS: INSULIN GLARGINE, HUMAN 1 UNIT/0.01 ML SQ SCH (09:55)
[2021-12-20] MEDS: cefTRIAXone 1 GM VIAL IV SCH (09:56)
[2021-12-20] MEDS: traZODone HCL 150 MG TABLET PO SCH (20:24)
[2021-12-20] MEDS: CLOTRIMAZOLE VAG CRM 1% TUBE 45 GM VAG SCH (20:25)
[2021-12-20] MEDS: MELATONIN 3 MG TABLET PO SCH (20:25)
[2021-12-20] MEDS: TAMSULOSIN 0.4 MG CAPSULE PO SCH (20:25)
[2021-12-20] MEDS: BISACODYL 10 MG SUPP.RECT PR SCH (20:25)
[2021-12-20] MEDS ORDERED: INSULIN GLARGINE, HUMAN 1 UNIT/0.01 ML SQ SCH (21:00)
--- NOTE | 2021-12-20 21:33 | Internal Med Progress Note ---
SUBJECTIVE Subjective Patient information: Note initiated : 12/20/21 at 9:31 pm Service Date, if different from initiated Date: [] Patient: Janay Kraft a 81 y/o F admitted on 12/17/21 for gerry blood glucose. Chief Complaint: [] Interval history: Ms. Kraft is a 81 year old F Presents the ED with elevated blood glucose. Patient has history of dementia and resides in a nursing facility. She was admitted in the hospital a week and a half ago for DKA felt to be precipitated by UTI. She was in the hospital for 3 days. She was also in the hospital in July for right hip fracture. Patient is a poor historian and history is obtained from chart and family. The daughter says that the patient is able to carry on a conversation when she is at baseline. Daughter does not recall her being sick recently or having any complaints other than she did have nausea yesterday. Insulin regimen was 30 units of long-acting at night with 5 units at mealtime and sliding scale coverage on top of that. She was being transitioned to 30 units in the morning and then continue with 5 units at meal with sliding scale. However they were going to adjust her long- acting from 30 to 35. Diana states that she has been a brittle diabetic over the years but mostly with high blood glucose. In the ED she initially vital signs that were tachycardic in the 120s tachypneic and she did low blood pressures initially. Chemistry significant for acidosis on labs and blood gas. Significantly elevated lactate at 8.2 blood glucose 640 and acute kidney injury. Leukocytosis noted. Lipase is elevated but she does not seem to have any abdominal pain, likely secondary to DKA as opposed to pancreatitis. Patient was given generous IV fluid and started on insulin drip in the ED. Urinalysis pending. CT abdomen pelvis pending. 12/18 Patient sitting up in chair. Much more communicative today. Will transition from insulin drip to subcu insulin and titrate as needed. Patient states poor sleep due to bed. Transaminitis. Suspected urinary tract infection. 12/19 Blood sugar was 45 this morning and decrease the Lantus to 18 units Follow sliding scale Pending urine culture Continue ceftriaxone 12/20 Blood culture urine culture no growth Patient had episodes of hypoglycemia with blood sugar in 31 Patient is a brittle diabetic We will discontinue the sliding scale as she developed hypoglycemia even with a 3 units We will start her on Lantus twice daily dosing Lantus is not causing any hypoglycemia for her Target blood sugar for her is less than 250 Review of system otherwise unremarkable Pertinent ROS: Review of system unremarkable no chest symptoms no abdominal symptoms alert oriented x2 Constitutional Vitals: Vital Signs Temp Pulse Resp BP Pulse Ox 99.0 F 82 12 166/80 94 12/20/21 18:52 12/20/21 18:52 12/20/21 18:52 12/20/21 18:52 12/20/21 18:52 Period Temp Pulse Resp BP Sys/Mckenna Pulse Ox Last 24 Hr 96.8 F-99.0 F 67-86 12-16 129-166/64-87 92-98 Intake and Output 12/20/21 12/20/21 12/20/21 05:59 13:59 21:59 Intake Total 240 360 720 Output Total 3 5 Balance 237 360 715 Weight 109 lb 1.6 oz Patient Weight 12/21/21 05:59 Weight 109 lb 1.6 oz Intake & Output: Intake & Output 12/20/21 12/20/21 12/20/21 05:59 13:59 21:59 Intake Total 240 360 720 Output Total 3 5 Balance 237 360 715 Weight 109 lb 1.6 oz Intake: Oral 240 360 720 Output: # of times incontinent of urine 3 5 Other: Meal Lunch Dinner Percent of Meal Consumed 50% 100% Feeding Ability Independent General appearance: cooperative and no acute distress Head Head exam: Present atraumatic and normal inspection Eye Eye exam: Present EOMI; Absent periorbital swelling or scleral icterus ENT ENT exam: Present mucous membranes moist and normal oropharynx Respiratory Respiratory exam: Absent accessory muscle use, respiratory distress or wheezes Cardiovascular Cardiovascular exam: Absent bradycardia, gallop, JVD or RRR GI/Abdominal GI/Abdominal exam: Present normal bowel sounds and soft; Absent distended Neurological Exam Neurological exam: Present alert, altered and reflexes normal; Absent motor sensory deficit OBJ DATA Labs CBC & Chem 7: 12/19/21 04:57 12/19/21 04:57 Labs: Abnormal Lab Results 12/19/21 12/19/21 12/18/21 04:57 04:57 05:14 WBC RBC 3.46 L Hgb 9.8 L Hct 31.4 L RDW 18.6 H Neut % (Auto) Lymph % (Auto) Absolute Neutrophils VBG Lactic Acid 2.1 H Chloride 109 H Anion Gap 5.0 L Glucose 48 L Calcium Phosphorus GGT 100 H AST 95 H ALT 60 H Alkaline Phosphatase 124 H Lactate Dehydrogenase 238 H Total Protein 5.0 L Albumin 2.7 L Triglycerides 191 H Lipase 12/18/21 12/18/21 05:14 05:14 WBC 14.6 H RBC 3.24 L Hgb 9.3 L Hct 28.6 L RDW 17.7 H Neut % (Auto) 82.1 H Lymph % (Auto) 12.0 L Absolute Neutrophils 12.02 H VBG Lactic Acid Chloride Anion Gap Glucose Calcium 7.9 L Phosphorus 2.1 L GGT 68 H AST 79 H ALT 52 H Alkaline Phosphatase Lactate Dehydrogenase 232 H Total Protein 4.9 L Albumin 2.7 L Triglycerides Lipase 495 H Meds: Medications Acetaminophen (Acetaminophen 325 Mg Tablet) 650 mg PO Q6HP PRN; Protocol PRN Reason: Per Pain Protocol/Fever > 101 Last Admin: 12/19/21 07:12 Dose: 650 mg Documented by: Hydrocodone Bitart/Acetaminophen (Hydrocodone/Apap 10/325mg Tablet) 1 tab PO Q4HP PRN; Protocol PRN Reason: Pain Last Admin: 12/20/21 20:25 Dose: 1 tab Documented by: Albuterol/Ipratropium (Ipratropium/Albuterol 3 Ml Ampul.Neb) 3 ml NEB Q4HP PRN PRN Reason: Shortness Of Breath Bisacodyl (Bisacodyl 10 Mg Supp.Rect) 10 mg WV HS [facility] Last Admin: 12/20/21 20:25 Dose: Not Given Documented by: Ceftriaxone Sodium (Ceftriaxone 1 Gm Vial) 1 gm IV Q24H VASQUEZ; Protocol Last Admin: 12/20/21 09:56 Dose: 1 gm Documented by: Citalopram Hydrobromide (Citalopram 20 Mg Tablet) 20 mg PO QDAY [facility] Last Admin: 12/20/21 09:17 Dose: 20 mg Documented by: Clotrimazole (Clotrimazole Vag Crm 1% Tube 45 Gm) 1 appful VAG HS [facility] Last Admin: 12/20/21 20:25 Dose: 1 appful Documented by: Dextrose (Dextrose 50% 50 Ml Vial) 0 ml IV UD PRN PRN Reason: Per Sliding Scale Diagnostic Test (Pha) (Accu-Chek 1 Each Strip) 1 each FS ACHS [facility] Last Admin: 12/20/21 20:24 Dose: 1 each Documented by: Docusate Sodium (Docusate Sodium 100 Mg Capsule) 100 mg PO BID [facility] Last Admin: 12/20/21 20:25 Dose: 100 mg Documented by: Enoxaparin Sodium (Enoxaparin 30 Mg/0.3 Ml Syringe) 30 mg SQ DAILY [facility] Last Admin: 12/20/21 09:17 Dose: 30 mg Documented by: Fluconazole (Fluconazole 150 Mg Tablet) 150 mg PO Q72 [facility]; Protocol Stop: 12/23/21 10:01 Last Admin: 12/20/21 09:18 Dose: 150 mg Documented by: Glucose (Dextrose 31 Gm Oral.Susp) 15 gm PO PRN PRN PRN Reason: Hypoglycemia Potassium Chloride 40 meq/ (Dextrose) 520 mls @ 130 mls/hr IV UD PRN PRN Reason: Potassium < 3 Magnesium Sulfate (Magnesium Sulfate) 2 gm in 50 mls @ 50 mls/hr IV UD PRN PRN Reason: Magnesium </= 1.6 Insulin Human Regular 50 unit/ (Sodium Chloride) 100 mls @ 10 mls/hr IV DUR [facility]; Protocol Insulin Glargine (Insulin Glargine, Human 1 Unit/0.01 Ml) 18 unit SQ DAILY [facility] Last Admin: 12/20/21 09:55 Dose: 18 units Documented by: Insulin Glargine (Insulin Glargine, Human 1 Unit/0.01 Ml) 10 unit SQ [facility] Last Admin: 12/20/21 21:14 Dose: 10 unit Documented by: Insulin Human Lispro (Insulin Lispro 1 Unit/0.01 Ml Unit) 0 unit SQ [facility]; Protocol Last Admin: 12/20/21 21:15 Dose: 6 unit Documented by: Melatonin (Melatonin 3 Mg Tablet) 3 mg PO HS [facility] Last Admin: 12/20/21 20:25 Dose: 3 mg Documented by: Mineral Oil (Mineral Oil 1 Dose Enema) 1 dose WV DAILYP PRN PRN Reason: Constipation Omeprazole (Omeprazole 20 Mg Capsule) 20 mg PO ACB [facility] Last Admin: 12/20/21 07:27 Dose: 20 mg Documented by: Ondansetron HCl (Ondansetron 4 Mg/2 Ml Vial) 4 mg IV Q4HP PRN PRN Reason: Nausea And Vomiting Methenamine Hippurate 1 Gram Tablet 1 dose PO BID [facility] Last Admin: 12/20/21 20:25 Dose: Not Given Documented by: Polyethylene Glycol (Polyethylene Glycol 3350 17 Gm Packet) 17 gm PO DAILYP PRN PRN Reason: Constipation Potassium Chloride (Potassium Chloride 20 Meq Tablet) 40 meq PO UD PRN PRN Reason: Potssium is 3-3.5 Last Admin: 12/18/21 07:09 Dose: 40 meq Documented by: Potassium Chloride (Potassium Chloride 20 Meq Tablet) 40 meq PO UD PRN PRN Reason: Potassium < 3 Senna (Sennosides 1 Tablet) 2 tab PO DAILYP PRN PRN Reason: Constipation Sodium Chloride (0.9 % Sodium Chloride 10 Ml Syringe) 10 ml IV Q8 [facility] Last Admin: 12/20/21 20:26 Dose: 10 ml Documented by: Tamsulosin HCl (Tamsulosin 0.4 Mg Capsule) 0.4 mg PO [facility] Last Admin: 12/20/21 20:25 Dose: 0.4 mg Documented by: Trazodone HCl (Trazodone Hcl 150 Mg Tablet) 150 mg PO [facility] Last Admin: 12/20/21 20:24 Dose: 150 mg Documented by: ABG Interpretation ABG results: 12/17/21 10:48 ABG Methemoglobin 0.3 L VBG pH 7.30 L VBG pCO2 25.1 L VBG pO2 65.6 H VBG HCO3 12.1 L VBG Total CO2 12.9 L VBG O2 Saturation 89.2 H VBG Base Excess -13 L A/P Narrative Plan of Treatment: DKA: suspect 2/2 UTI, pt also brittle diabetic. She's at nursing facility so delivering medication should not be an issue -A1c 9.4 *Hypotension: 2/2 above, resolved in ED *AG Met Acidosis w/Severe Lactic acidosis: 2/2 above, improved *Encephalopathy, metabolic, superimposed on underlying dementia: improving *CHATO on CKD III: improved *Leukocytosis: reactive vs infectious *SIRS vs Sepsis: 2/2 above *Elevated lipase: as a consequence of DKA, no pancreatitis per imaging *Dementia, Advanced with difficulty with recall, critical thinking and daily activities: -At risk for delirium *Depression/anxiety: *GERD: P: -inuslin gtt to SQ insulin transition to Lantus daily and sliding scale Patient had multiple episodes of hypoglycemia even with 3 units of sliding scale insulin We will try to avoid sliding scale insulin and keep her on Lantus twice daily dosing Lantus is not causing any hypoglycemia for her -Urine culture no growth -Titrate diabetes regimen -Monitor electrolytes -Monitor urine output and fluid balance -Delirium precautions -pt/ot -consider referral to endocrinology if she gets admitted with DKA again -ppx: lovenox /home PPI DNR Time Spent With Patient Time: Total time spent is greater than 50% in coordination of care (as documented) at patient's floor/unit and/or counseling patient: QUALITY VTE Deep Vein Thrombosis/Pulmonary Embolism Present on Admission: No
[2021-12-21] MEDS ORDERED: DEXTROSE 50% 50 ML SYRINGE IV ONE (02:21)
[2021-12-21] MEDS: 0.9 % SODIUM CHLORIDE 10 ML SYRINGE IV SCH (05:56)
[2021-12-21 06:14] LABS: Basophils # (Auto) 0.02 K/mcL (0.00-0.30); Basophils % (Auto) 0.4 % (0.0-2.0); Eosinophils # (Auto) 0.05 K/mcL (0.00-0.70); Hematocrit 38.7 % (34.1-44.9); Hemoglobin 12.3 g/dL (11.2-15.7); Lymphocytes # (Auto) 1.36 K/mcL (1.50-4.80); Lymphocytes % (Auto) 27.8 % (15.5-49.0); Mean Cell Volume 91.5 fL (80.0-100.0); Mean Corpuscular HGB Conc 31.8 g/dL (31.0-36.0); Mean Platelet Volume 9.4 fL (7.4-10.4); Monocytes % (Auto) 8.2 % (1.0-12.0); Neutrophils % (Auto) 62.6 % (38.0-78.0); Platelet Count 298 K/mcL (140-440); RBC 4.23 M/mcL (3.59-5.38); Red Cell Distribution Width 17.8 % (11.5-14.5); WBC 4.9 K/mcL (4.5-11.0)
[2021-12-21 06:36] LABS: ALT/SGPT 43 U/L (<40); AST/SGOT 33 U/L (<32); Albumin/Globulin Ratio 1.2 (1.0-2.3); Alkaline Phosphatase 143 U/L (39-117); Bilirubin,Total 0.2 mg/dL (0.1-1.0); Blood Urea Nitrogen 8 mg/dL (8-23); Calcium 9.1 mg/dL (8.6-10.4); Carbon Dioxide 29 mmol/L (22-30); Chloride 100 mmol/L (96-108); Globulin 2.5 gm/dL (2.2-3.7); Glomerular Filtration Rate 84; Glucose 111 mg/dL (70-105)
[2021-12-21] MEDS: INSULIN LISPRO 1 UNIT/0.01 ML UNIT SQ SCH ×2 (07:12→11:10)
[2021-12-21] MEDS: OMEPRAZOLE 20 MG CAPSULE PO SCH (07:15)
[2021-12-21] MEDS: cefTRIAXone 1 GM VIAL IV SCH (08:31)
[2021-12-21] MEDS: ENOXAPARIN 30 MG/0.3 ML SYRINGE SQ SCH (08:31)
[2021-12-21] MEDS: INSULIN GLARGINE, HUMAN 1 UNIT/0.01 ML SQ SCH (08:31)
[2021-12-21] MEDS: CITALOPRAM 20 MG TABLET PO SCH (08:31)
[2021-12-21] MEDS: DOCUSATE SODIUM 100 MG CAPSULE PO SCH (08:32)
--- NOTE | 2021-12-21 10:22 | Discharge Summary ---
Discharge Provider Provider IMPORTANT FOLLOW-UP INFORMATION FOR PCP: Patient information: Note initiated : 12/21/21 at 10:20 am Service Date, if different from initiated Date: [] Patient: Janay Kraft a 81 y/o F admitted on 12/17/21 for gerry blood glucose. Chief Complaint: [] Date of admission: 12/17/21 14:49 Discharge date: 12/21/21 Primary care physician: Jesus Ruby DO Consults: 12/17/21 Consult to Physician [CONS] Stat Comment: Consulting Provider: Burt Jones Reason For Exam: Physician to Consult 12/19/21 07:17 Consult to Physician [CONS] Routine Comment: snf referral Consulting Provider: [facility] Reason For Exam: Physician to Consult COURSE Hospital Course Hospital course: Ms. Kraft is a 81 year old F Presents the ED with elevated blood glucose. Patient has history of dementia and resides in a nursing facility. She was admitted in the hospital a week and a half ago for DKA felt to be precipitated by UTI. She was in the hospital for 3 days. She was also in the hospital in July for right hip fracture. Patient is a poor historian and history is obtained from chart and family. The daughter says that the patient is able to carry on a conversation when she is at baseline. Daughter does not recall her being sick recently or having any complaints other than she did have nausea yesterday. Insulin regimen was 30 units of long-acting at night with 5 units at mealtime and sliding scale coverage on top of that. She was being transitioned to 30 units in the morning and then continue with 5 units at meal with sliding scale. However they were going to adjust her long- acting from 30 to 35. Diana states that she has been a brittle diabetic over the years but mostly with high blood glucose. In the ED she initially vital signs that were tachycardic in the 120s tachypneic and she did low blood pressures initially. Chemistry significant for acidosis on labs and blood gas. Significantly elevated lactate at 8.2 blood glucose 640 and acute kidney injury. Leukocytosis noted. Lipase is elevated but she does not seem to have any abdominal pain, likely secondary to DKA as opposed to pancreatitis. Patient was given generous IV fluid and started on insulin drip in the ED. Urinalysis pending. CT abdomen pelvis pending. 12/18 Patient sitting up in chair. Much more communicative today. Will transition from insulin drip to subcu insulin and titrate as needed. Patient states poor sleep due to bed. Transaminitis. Suspected urinary tract infection. 12/19 Blood sugar was 45 this morning and decrease the Lantus to 18 units Follow sliding scale Pending urine culture Continue ceftriaxone 12/20 Blood culture urine culture no growth Patient had episodes of hypoglycemia with blood sugar in 31 Patient is a brittle diabetic We will discontinue the sliding scale as she developed hypoglycemia even with a 3 units We will start her on Lantus twice daily dosing Lantus is not causing any hypoglycemia for her Target blood sugar for her is less than 250 12/21 Patient's blood sugar improving She still has occasional episodes of hypoglycemia Lantus dose changed to 20 units in the morning and 5 units at bedtime We also understood patient is on a regular diet SNF and we have been following strict diabetic diet which probably causing some of the hypoglycemia We put the patient on a regular diet Patient blood sugar needs to be monitored closely at the nursing facility and would recommend low sliding scale in addition to the Lantus dose change But if she continued having labile blood sugar then she needs to be established with a practice assistant DKA: brittle diabetic. She's at nursing facility so delivering medication should not be an issue -A1c 9.4 *Hypotension: 2/2 above, resolved in ED *AG Met Acidosis w/Severe Lactic acidosis: 2/2 above, improved *Encephalopathy, metabolic, superimposed on underlying dementia: improving *CHATO on CKD III: improved *Leukocytosis: reactive vs infectious *SIRS vs Sepsis: 2/2 above *Elevated lipase: as a consequence of DKA, no pancreatitis per imaging *Dementia, Advanced with difficulty with recall, critical thinking and daily activities: -At risk for delirium *Depression/anxiety: *GERD: P: -inuslin gtt to SQ insulin transition to Lantus daily and sliding scale Patient had intermittent episodes of hypoglycemia diet changed to regular diet as she followed regular diet at the nursing facility as per the daughter Lantus dose changed to 20 units in the morning and 5 units at bedtime Low sliding scale Patient blood sugar needs to be monitored closely at the nursing facility Lantus is not causing any hypoglycemia for her -Urine culture no growth and discontinued antibiotics -Titrate diabetes regimen -Monitor electrolytes -Monitor urine output and fluid balance -Delirium precautions -pt/ot -consider referral to endocrinology if she gets admitted with DKA again -ppx: lovenox /home PPI DNR Discharge diagnosis: DKA Time Spent with Patient Time attestation: Total time spent providing and/or coordinating discharge services: Time spent: Greater than 30 minutes EXAM Constitutional Vitals: Temp Pulse Resp BP Pulse Ox 97.4 F 74 14 141/81 92 12/21/21 08:00 12/21/21 08:00 12/21/21 08:00 12/21/21 08:00 12/21/21 08:00 General appearance: no acute distress Head Head exam: Present atraumatic and normal inspection ENT ENT exam: Present mucous membranes moist and normal oropharynx Expanded ENT Exam Ear exam: Absent auricular hematoma or auricular trauma Respiratory Respiratory exam: Present normal respiratory exam; Absent accessory muscle use or respiratory distress GI/Abdominal GI/Abdominal exam: Present normal bowel sounds and soft; Absent distended Neurological Exam Neurological exam: Present alert and reflexes normal; Absent motor sensory deficit or oriented X3 Discharge Data Data Completed and Pending Labs on day of discharge: Labs from last 24 hours 12/21/21 12/21/21 05:26 05:26 WBC 4.9 RBC 4.23 Hgb 12.3 Hct 38.7 MCV 91.5 MCH 29.1 MCHC 31.8 RDW 17.8 H Plt Count 298 MPV 9.4 Neut % (Auto) 62.6 Lymph % (Auto) 27.8 [place] % (Auto) 8.2 Eos % (Auto) 1.0 Baso % (Auto) 0.4 Lymph # (Auto) 1.36 L [place] # (Auto) 0.40 Eos # (Auto) 0.05 Baso # (Auto) 0.02 Absolute Neutrophils 3.07 Sodium 138 Potassium 4.6 Chloride 100 Carbon Dioxide 29 Anion Gap 9.0 BUN 8 Creatinine 0.6 GFR Calculation 84 Glucose 111 H Calcium 9.1 Magnesium 1.8 Total Bilirubin 0.2 AST 33 H ALT 43 H Alkaline Phosphatase 143 H Total Protein 5.5 L Albumin 3.0 L Globulin 2.5 Albumin/Globulin Ratio 1.2 Preliminary micro results at discharge 12/17/21 12:55 Blood Culture - Preliminary Blood 12/17/21 12:43 Blood Culture - Preliminary Blood Discharge Plan Patient/Caregiver Discharge Instructions Activity: increase activity as tolerated Diet: Regular Diet Prescriptions: New Lantus U-100 Insulin 100 unit/mL Solution 20 unit subcut DAILY Qty: 10 2RF Lantus U-100 Insulin 100 unit/mL Solution 5 unit subcut HS Qty: 10 1RF Continued polyethylene glycol 3350 [Miralax] 17 GM powder in packet 17 gm PO BID 0RF omeprazole 20 MG capsule,delayed release(DR/EC) 20 mg PO ACB 0RF methenamine hippurate 1 gram tablet 1 g PO BID 0RF bisacodyl [Dulcolax (bisacodyl)] 10 mg suppository 10 mg DE HS 0RF trazodone 150 mg tablet 150 mg PO HS 0RF multivit with min-folic acid 0.4 mg Tablet 1 tab PO DAILY 0RF melatonin 5 mg Tablet 5 mg PO HS 0RF (DME) Blood Glucose Test Strip MISCELLANEOUS 0RF Rx Instructions: Before meals and at bedtime citalopram 20 mg tablet 1 tab PO QDAY 0RF Glucagon Emergency Kit (human) 1 mg Recon Soln 1 mg IM Q15MIN PRN (Reason: Hypoglycemia) 0RF dextrose [Glucose Gel] 40 % Gel 15 g PO Q15MIN PRN (Reason: Hypoglycemia) 0RF Rx Instructions: Give 15 gram by mouth every 15 minutes as needed for BG <70, recheck in 15 minutes. Notify MD. mineral oil [Fleet Mineral Oil] Enema 1 ea DE DAILYP PRN (Reason: Constipation) 0RF (DME) blood-glucose meter [Blood Glucose Monitoring] Kit MISCELLANEOUS 0RF Rx Instructions: ACHS, PRN acetaminophen [Tylenol] 325 mg Tablet 650 mg PO Q6H PRN (Reason: Pain) 0RF Fleet Enema 19-7 gram/118 mL Enema 118 ml DE DAILY PRN (Reason: Constipation) 0RF hydrocodone-acetaminophen 10-325 mg tablet 1 tab PO Q4HP PRN (Reason: Pain) 0RF insulin lispro 100 unit/mL insulin pen 1 - 8 sliding scale dose subcut ACHS PRN (Reason: Hyperglycemia) 0RF Rx Instructions: 71-139--0 units 140-180--2 unit 181-240-3 units 241-300-4 units 301-350-6 units 351-400-8 units 401+ 10 units >500 Call PCP immediately insulin lispro 100 unit/mL Insulin Pen 5 unit SUBCUT AC 0RF Discontinued Lantus Solostar U-100 Insulin 100 unit/mL (3 mL) Insulin Pen 35 unit SUBCUT QAM 0RF Other Ambulatory Orders: Wound Care Instructions (CONT) Location: None Selected Ordered By: Virgie Bailey Follow Up Plan Follow up with: Jesus Ruby DO [Primary Care Provider] - Patient Disposition: Xfer SNF Plan of Treatment: DKA: suspect 2/2 UTI, pt also brittle diabetic. She's at nursing facility so delivering medication should not be an issue -A1c 9.4 *Hypotension: 2/2 above, resolved in ED *AG Met Acidosis w/Severe Lactic acidosis: 2/2 above, improved *Encephalopathy, metabolic, superimposed on underlying dementia: improving *CHATO on CKD III: improved *Leukocytosis: reactive vs infectious *SIRS vs Sepsis: 2/2 above *Elevated lipase: as a consequence of DKA, no pancreatitis per imaging *Dementia, Advanced with difficulty with recall, critical thinking and daily activities: -At risk for delirium *Depression/anxiety: *GERD: P: -inuslin gtt to SQ insulin transition to Lantus daily and sliding scale Patient had multiple episodes of hypoglycemia even with 3 units of sliding scale insulin We will try to avoid sliding scale insulin and keep her on Lantus twice daily dosing Lantus is not causing any hypoglycemia for her -Urine culture no growth -Titrate diabetes regimen -Monitor electrolytes -Monitor urine output and fluid balance -Delirium precautions -pt/ot -consider referral to endocrinology if she gets admitted with DKA again -ppx: lovenox /home PPI DNR Prognosis: Fair Rehab Potential: Serious I certify that the patient requires SNF services: Yes Overall status at discharge: patient is progressing back to baseline Discharge Orders: Discharge Order (Routine); Ordered 12/21/21 Ordered By: Virgie Bailey QUALITY VTE Deep Vein Thrombosis/Pulmonary Embolism Present on Admission: No
== END 2021-12-21 11:37 | DRG 637 ==
LOC: ED 10:20 → ICU 14:49 → MEDSUR 12-19 08:04
PROVIDERS: ADMIT Internal Medicine; ATTEND Internal Medicine